=== PATIENT | female | born 1975 | race Hispanic/Latino ===

== ENCOUNTER 2024-06-28 02:35 | Inpatient (IN) | payer BC ==
[~2024-06-28] VITALS: Ht 124.5 cm; Wt 119.7 kg
[2024-06-28] MEDS: ondanSETRON 4MG INJ IVP ONE ×3 (02:58→08:38)
[2024-06-28] MEDS: 0.9%NACL 1000ML 1,000 ML IV ONE (02:58)
[2024-06-28] MEDS: PANTOPrazole 40 MG/VIAL IVP ONE (02:58)
[2024-06-28] MEDS: acetaMINOPHEN 325 MG TAB PO ONE (02:59)
[2024-06-28 03:06] LABS: BASOPHILS # (AUTO) 0.04 K/uL (0.00-0.20); BASOPHILS % (AUTO) 0.4 % (0.0-5.0); EOSINOPHILS # (AUTO) 0.12 K/uL (0.00-0.70); EOSINOPHILS % (AUTO) 1.1 % (0.0-8.0); HEMATOCRIT 42.1 % (36-48); IMMATURE GRANULOCYTE ABSOLUTE 0.05 K/uL (0-1); LYMPHOCYTES # (AUTO) 1.2 K/uL (1.0-4.8); LYMPHOCYTES % (AUTO) 10.6 % (21.0-51.0); MEAN CORPUSCULAR HEMOGLOBIN 27.9 pg (27.0-33.0); MEAN CORPUSCULAR HGB CONC 34.7 g/dL (32.0-36.0); MEAN CORPUSCULAR VOLUME 80.5 fL (79-99); MONOCYTES # (AUTO) 0.6 K/uL (0.1-1.0); MONOCYTES % (AUTO) 5.6 % (3.0-13.0); NEUTROPHILS # (AUTO) 9.3 K/uL (1.8-7.7); NEUTROPHILS % (AUTO) 81.9 % (40.0-77.0); PLATELET COUNT (AUTO) 333 K/uL (130-400); RED BLOOD CELL COUNT(AUTO) 5.23 MIL/uL (4.00-5.50); RED CELL DISTRIBUTION WIDTH 13.6 % (11.0-15.5); WHITE BLOOD COUNT (AUTO) 11.4 K/uL (4.8-10.8)
--- NOTE | 2024-06-28 03:10 | ERN ---
General Chief Complaint: Abdominal Pain Stated Complaint: UPPER ABDOMINAL PAIN ONSET 1300 Time Seen by MD: 02:47 Source: patient History of Present Illness Initial Comments Patient is a 49-year-old female coming in to be evaluated for abdominal pain. Patient states that the pain began earlier today at 1:00 p.m.. She states that the pain is unbearable sharp present in the midepigastric region traveling bilateral flanks. Patient also states he had never had pain like this before she thought initially it was due to her menstruation by decided to come in to be evaluated anyway. Allergies: Coded Allergies: No Known Allergies (Unverified Allergy, Unknown, 06/28/24) Past Medical History Past Medical History: Gallstones Past Surgical History: None ROS Dictation CONSTITUTIONAL: No chills, no fever, no weakness, no diaphoresis, no malaise. HEAD/FACE: No signs of trauma. EENT: No eye pain, no blurred vision, no tearing, no double vision, no ear pain, no ear discharge, no nose pain, no nasal congestion, no throat pain, no throat swelling, no mouth pain. RESPIRATORY: No cough, no orthopnea, no SOB, no stridor, no wheezing. CARDIOVASCULAR: No chest pain, no edema, no palpitations, no syncope. GASTROINTESTINAL/ABDOMINAL: abdominal pain, no constipation, no diarrhea, nausea, no vomiting. GENITOURINARY: No abnormal discharge, no dysuria, no frequent urination, no hematuria. No complaints of pain in the genitals. MUSCULOSKELETAL: No back pain, no gout, no joint pain, no joint swelling, no muscle pain, no muscle stiffness, no neck pain. INTEGUMENTARY: No change in color, no change in hair/nails, no dryness, no lesion, no lumps, no rash. NEUROLOGICAL/PSYCH: No anxiety, not depressed, no emotional problem, no headache, no numbness, no pre-existing deficit, no history of seizures, no tremors, no weakness. HEMATOLOGIC/LYMPHATIC: Not anemic, no history of blood clots, no apparent bleeding, no bruising, glands not swollen. All Systems Negative, Except as Noted. Physical Exam Physical Exam Dictation VITAL SIGNS: Reviewed. GENERAL APPEARANCE: Alert, oriented x3, no acute distress, obese. HEAD AND FACE: Non-traumatic. EYES: PERRL, pink conjunctivas, eyelid no trauma, anterior chamber clear. EARS: Pinnas intact and no signs of trauma or erythema. Ear canals clear and no discharge. TMs no erythema. NOSE: No discharge, no bleeding. OROPHARYNX: Mouth normal, teeth no caries, tongue pink. Pharynx clear, no erythema. Tonsils no exudates, no abscesses noted. Mucous membrane moist. NECK: Supple, non-tender, no thyromegaly, no masses, no JVD, no bruits. BREAST: Deferred. CHEST: No tenderness, no crepitus, no paradoxical movement, no retractions. LUNGS: Clear, well-ventilated, symmetric, no rales, no wheezing, no rhonchi, no stridor, good breath sounds bilaterally. HEART: Regular rate, regular rhythm, no murmur, no gallops. VASCULAR: No peripheral edema. ABDOMEN: Soft, positive bowel sounds, nondistended, no guarding, epigastric and lower abdominal pain reproducible on palpation, no rebound, no masses no hepatomegaly, no splenomegaly, no Gil's sign, no hernias. RECTAL: Deferred. GENITAL: Deferred. NEUROLOGICAL: Normal speech, gross motor function intact, gross sensory function intact. MUSCULOSKELETAL: Neck nontender, full range of motion, back nontender, full range of motion. EXTREMITIES: Nontender, full range of motion. SKIN: Color pink, dry, no turgor, no rash, no lacerations, no abrasions, no contusions. LYMPHATICS: Deferred. Results Laboratory and Microbiology Lab and Micro Result Laboratory Tests Test 06/28/24 02:57 06/28/24 03:30 White Blood Count 11.4 K/uL (4.8-10.8) H Red Blood Count 5.23 MIL/uL (4.00-5.50) Hemoglobin 14.6 g/dL (12.0-16.0) Hematocrit 42.1 % (36-48) Mean Corpuscular Volume 80.5 fL (79-99) Mean Corpuscular Hemoglobin 27.9 pg (27.0-33.0) Mean Corpuscular Hemoglobin Concent 34.7 g/dL (32.0-36.0) Red Cell Distribution Width 13.6 % (11.0-15.5) Platelet Count 333 K/uL (130-400) Mean Platelet Volume 10.8 fL (7.5-10.5) H Immature Granulocyte % (Auto) 0.4 % (0-1) Neutrophils (%) (Auto) 81.9 % (40.0-77.0) H Lymphocytes (%) (Auto) 10.6 % (21.0-51.0) L Monocytes (%) (Auto) 5.6 % (3.0-13.0) Eosinophils (%) (Auto) 1.1 % (0.0-8.0) Basophils (%) (Auto) 0.4 % (0.0-5.0) Neutrophils # (Auto) 9.3 K/uL (1.8-7.7) H Lymphocytes # (Auto) 1.2 K/uL (1.0-4.8) Monocytes # (Auto) 0.6 K/uL (0.1-1.0) Eosinophils # (Auto) 0.12 K/uL (0.00-0.70) Basophils # (Auto) 0.04 K/uL (0.00-0.20) Absolute Immature Granulocyte (auto 0.05 K/uL (0-1) Nucleated Red Blood Cells 0.0 % (0.0-0.19) Sodium Level 144 mmol/L (136-145) Potassium Level 2.8 mmol/L (3.5-5.1) *L Chloride Level 105 mmol/L (101-111) Carbon Dioxide Level 30 mmol/L (21-32) Blood Urea Nitrogen 10 mg/dL (7-18) Creatinine 0.8 mg/dL (0.5-1.0) Glomerular Filtration Rate Calc 91 mL/min (>90) Random Glucose 177 mg/dL (70-105) H Total Calcium 8.6 mg/dL (8.5-10.1) Magnesium Level 1.80 mg/dL (1.80-2.40) Total Bilirubin 2.0 mg/dL (0.2-1.0) H Aspartate Amino Transf (AST/SGOT) 573 U/L (10-37) H Alanine Aminotransferase (ALT/SGPT) 446 U/L (12-78) H Alkaline Phosphatase 222 U/L (50-136) H Total Creatine Kinase 79 U/L (21-232) Troponin I High Sensitivity 6 ng/L (4-50) Total Protein 6.8 g/dL (6.0-8.3) Albumin 3.3 g/dL (3.5-5.0) L Triglycerides Level 78 mg/dL (30-200) Lipase 75938 U/L (16-77) *H Human Chorionic Gonadotropin, Quant 0 mIU/mL (0-5) Urine Color LIGHT-ORANGE (YELLOW) Urine Appearance CLOUDY (CLEAR) H Urine pH 7.0 (5.0-8.0) Urine Specific [place] 1.011 (1.001-1.031) Urine Protein 10 mg/dL (NEGATIVE) H Urine Glucose (UA) NEGATIVE mg/dL (NEGATIVE) Urine Ketones NEGATIVE mg/dL (NEGATIVE) Urine Occult Blood LARGE (NEGATIVE) H Urine Nitrate NEGATIVE (NEGATIVE) Urine Bilirubin NEGATIVE mg/dL (NEGATIVE) Urine Urobilinogen 3 mg/dL (0.2-1.0) H Urine Leukocyte Esterase 250 Brennan/uL (NEGATIVE) H Urine RBC TNTC /HPF (0-1) H Urine WBC 6-10 /HPF (0-1) H Urine Squamous Epithelial Cells RARE /HPF (0-2) Urine Bacteria None /HPF (None Seen) Urine HCG, Qualitative NEGATIVE (NEGATIVE) Urine Opiates Screen NEGATIVE (NEGATIVE) Urine Barbiturates Screen NEGATIVE (NEGATIVE) Urine Phencyclidine Screen NEGATIVE (NEGATIVE) Urine Amphetamines Screen NEGATIVE (NEGATIVE) Urine Benzodiazepines Screen NEGATIVE (NEGATIVE) Urine Cocaine Screen NEGATIVE (NEGATIVE) Urine Marijuana (THC) Screen NEGATIVE (NEGATIVE) Labs Reviewed?: Yes EKG/XRAY/US/CT/MRI EKG Comment 06/28/2024 time 3:15 a.m. Ventricular rate 72 Sinus rhythm MS [address] wave elevation or depression Ultrasound Comment Ultrasound right upper quadrant-gallstones CT Scan Comment CT abdomen and pelvis-pancreatitis MDM MDM: Differential diagnosis: Pancreatitis, cholecystitis, Rationale: Tests considered and ordered secondary to shared decision making include: Previous outside records reviewed: Old ER visits. Risk of complication and/or morbidity or mortality of patient management: None Medications-Per medication reconciliation Need for hospitalization: Patient does not meet criteria for hospitalization. Need for emergency major/minor surgery: No There are no social concerns with this patient. Prescription drug management Prescriptions will include symptomatic care Patient's prior external medical records from other ER visits were reviewed by me as indicated. Prior testing and results from previous visits were reviewed. Prior tests were taken into account with medical decision making and resource utilization, independent historian/historians were used to obtain complete medical history. I independently interpreted the test that were performed, results were reviewed by me and considered findings on radiology if ordered. Medical management and examination interpretation discussions were had by me with other qualified healthcare professionals as indicated for the patient's care. Patient is a 49-year-old female coming in to be evaluated for abdominal pain. On physical exam there is a epigastric and right upper quadrant pain. Laboratory workup elevated liver enzymes as well as elevated lipase. Patient will be admitted under the care of hospitalist group for ongoing management of pancreatitis ED Course Orders Procedure Category Date Status Time Cbc With Differential LAB 06/28/24 Complete 02:50 Comprehensive LAB 06/28/24 Complete Metabolic Panel 02:50 Troponin I High LAB 06/28/24 Complete Sensitivity 02:50 Hcg,Quantitative LAB 06/28/24 Complete 02:50 ,Urine Test LAB 06/28/24 Complete 02:50 Urinalysis Profile LAB 06/28/24 Complete 02:50 12 Lead Ekg Tracing- EKG 06/28/24 Logged Technical 02:50 0.9%Nacl 1000ml (Ns PHA 06/28/24 Complete 1000ml) 03:00 Acetaminophen 325 Tab PHA 06/28/24 Complete (Tylenol 325mg Tab 03:00 Ondansetron 4mg Inj PHA 06/28/24 Complete (Zofran 4mg Inj) 03:00 Pantoprazole 40mg Inj PHA 06/28/24 Complete (Protonix 40mg Inj 03:00 Creatine Kinase, Total LAB 06/28/24 Complete 02:50 Chest 1vw RAD 06/28/24 Taken 02:50 Lipase LAB 06/28/24 Complete 02:50 Drug Screen Urine LAB 06/28/24 Complete 02:50 Dicyclomine Hcl PHA 06/28/24 Complete (Bentyl 20mg Inj) 03:30 Dicyclomine Hcl PHA 06/28/24 Complete (Bentyl 20mg Inj) 03:30 Culture Urine AV 06/28/24 In Process 04:05 Ondansetron 4mg Inj PHA 06/28/24 Complete (Zofran 4mg Inj) 04:30 Morphine 2mg Syg PHA 06/28/24 Complete (Morphine 2mg Syg) 04:30 Us Abdominal Ruq\Ltd US 06/28/24 Taken 04:26 Ct Abdomen/Pelvis W/O CT 06/28/24 Taken Contrast 04:26 Potassium Chloride PHA 06/28/24 Complete 10meq/100ml ([place] 05:00 Triglycerides LAB 06/28/24 Complete 04:45 Magnesium LAB 06/28/24 Complete 02:57 Zosyn 3.375gm+Ns 50ml PHA 06/28/24 Complete (Zosyn 3.375gm+Ns 06:00 Current Medications Medications (Trade) Dose Ordered Sig/[place] Route PRN Reason Start Time Stop Time Status Last Admin Dose Admin Acetaminophen (TYLenol 325MG TAB) 650 mg ONCE ONCE PO 06/28/24 03:00 06/28/24 03:01 DC 06/28/24 02:59 Dicyclomine HCl (Bentyl 20mg Inj) 10 mg ONCE ONCE IM 06/28/24 03:30 06/28/24 03:31 DC 06/28/24 03:28 Dicyclomine HCl (Bentyl 20mg Inj) 10 mg ONCE ONCE IM 06/28/24 03:30 06/28/24 03:31 DC Morphine Sulfate (morPHINE 2MG SYG) 2 mg ONCE ONCE IVP 06/28/24 04:30 06/28/24 04:31 DC 06/28/24 04:33 Ondansetron HCl (zoFRAN 4MG INJ) 4 mg ONCE ONCE IVP 06/28/24 03:00 06/28/24 03:01 DC 06/28/24 02:58 Ondansetron HCl (zoFRAN 4MG INJ) 4 mg ONCE ONCE IVP 06/28/24 04:30 06/28/24 04:31 DC 06/28/24 04:34 Pantoprazole Sodium (PROTonix 40MG INJ) 40 mg ONCE ONCE IVP 06/28/24 03:00 06/28/24 03:01 DC 06/28/24 02:58 Piperacillin Sod/ Tazobactam Sod (Zosyn 3.375gm+NS 50ml) 3.375 gm ONCE ONCE IV 06/28/24 06:00 06/28/24 06:01 DC 06/28/24 06:21 Potassium Chloride 100 ml @ 100 mls/hr ONCE ONCE IV 06/28/24 05:00 06/28/24 05:59 DC 06/28/24 06:22 Sodium Chloride 1,000 ml @ 0 mls/hr ONCE ONCE IV 06/28/24 03:00 06/28/24 03:01 DC 06/28/24 02:58 Vital Signs Date Time Temp Pulse Resp B/P (MAP) Pulse Ox O2 Delivery O2 Flow Rate FiO2 06/28/24 05:29 99.0 80 20 151/82 98 Room Air* 0 21 06/28/24 03:45 97.3 76 20 149/79 96 Room Air* 0 21 06/28/24 02:37 100.0 84 16 188/90 0 Room Air 0 06/28/24 02:36 97.3 84 16 188/90 100 Room Air* 0 21 DX & DISP Disposition: Inpatient Decision to Admit Time: 06:54 Departure Impression: Primary Impression: Pancreatitis Additional Impression: Transaminitis Condition: Stable Referrals: SELF,REFERRAL (PCP) DIAMOND CARVAJAL MD Jun 28, 2024 03:10
[2024-06-28] MEDS: DICYCLOMINE 20MG (10MG/ML) AMP IM ONE ×2 (03:28→03:30)
[2024-06-28 03:35] LABS: ALBUMIN 3.3 g/dL (3.5-5.0); CREATININE 0.8 mg/dL (0.5-1.0); TOTAL PROTEIN, SERUM 6.8 g/dL (6.0-8.3)
[2024-06-28 03:59] LABS: APPEARANCE,URINE CLOUDY (CLEAR); BILIRUBIN,URINE NEGATIVE (NEGATIVE); COLOR,URINE LIGHT-ORANGE (YELLOW); GLUCOSE, URINE (UA) NEGATIVE (NEGATIVE); KETONES,URINE NEGATIVE (NEGATIVE); LEUKOCYTE ESTERASE ,URINE 250 Leu/uL (NEGATIVE); NITRATE,URINE NEGATIVE (NEGATIVE); OCCULT BLOOD,URINE LARGE (NEGATIVE); PROTEIN,URINE 10 mg/dL (NEGATIVE); UROBILINOGEN,URINE 3 mg/dL (0.2-1.0)
[2024-06-28 04:01] LABS: POTASSIUM 2.8 mmol/L (3.5-5.1)
[2024-06-28 04:05] LABS: ADD UA MICROSCOPIC YES
[2024-06-28 04:06] LABS: AMPHET/METH SCREEN,URINE NEGATIVE (NEGATIVE); BARBITURATE SCREEN, URINE NEGATIVE (NEGATIVE); BENZODIAZEPINES SCREEN,URINE NEGATIVE (NEGATIVE); CANNABINOID SCREEN,URINE NEGATIVE (NEGATIVE); COCAINE SCREEN,URINE NEGATIVE (NEGATIVE); HCG,QUALITATIVE URINE NEGATIVE (NEGATIVE); OPIATE SCREEN,URINE NEGATIVE (NEGATIVE); PHENCYCLIDINE SCREEN,URINE NEGATIVE (NEGATIVE)
[2024-06-28 04:08] LABS: RBC,URINE TNTC /HPF (0-1); SQUAMOUS EPITHELIAL CELL,UR RARE /HPF (0-2)
--- NOTE | 2024-06-28 04:11 | NUR ---
POTASSIUM LAB 2.[address] CARVAJAL WILL PUT NEW ORDERS WILL CONT TO MONITOR
[2024-06-28] MEDS: morPHINE 2 MG SYG IVP ONE (04:33)
--- NOTE | 2024-06-28 04:40 | NUR ---
[place] [id number] CARVAJAL WILL PUT NEW ORDERS WILL CONT TO MONITOR
--- NOTE | 2024-06-28 05:22 | NUR ---
TOOK OVER PATIENT AT THIS TIME
[2024-06-28 05:33] VITALS: TEMP 98.6
[2024-06-28 05:58] LABS: MAGNESIUM 1.8 mg/dL (1.80-2.40)
[2024-06-28] MEDS: ZOSYN 3.375GM +NS 50ML IV ONE (06:21)
[2024-06-28] MEDS: PoTASSium chloRIDE 10MEQ/100ML 100 ML IV ONE (06:22)
[2024-06-28] MEDS: hydroMORPHone 0.5 MG SYG (0.5MG/0.5ML) IVP ONE (07:24)
--- NOTE | 2024-06-28 08:10 | HP ---
[facility] PH[facility] Date of Service: Jun 28, 2024 Time of Service: 08:10 HISTORY OF PRESENT ILLNESS: [ The patient is a 49 year old female presenting with midepigastric abdominal pain since yesterday around 1:00 p.m. The pain is described as constant, severe, radiating to the back with associated nausea and vomiting. The patient denies any recent trauma, changes in bowel habits or urinary symptoms. The pain has not been relieved by over the counter medications or positional changes. Patient also states she had never had pain like this before. Labarotary [place] [address] consistent with acute pancreatitis., transaminitis with AST 573, ALT 446 and Alkaline phosphate of 222 suggestive of possible biliary involvement. Additionally, hypokalemia was noted with potassium 2.8 likely secondary to vomiting. A CT abdominal pelvis demonstrated findings consistent with acute pancreatitis. No evidence of necrosis or pseudocyst formation was noted on imaging. The patient does report remote history of gallstones. She denies alcohol consumption. Vital signs upon presentation: temperature of 98.1 pulse 86, blood pressure of 149/76, respiratory rate 16, and oxygen saturation of 98% on room air. GI will be consulted for the management of acute pancreatitis with severe elevation of lipase and biliary involvement. Patient will be admitted to [facility] under hospitalist for further treatment and evaluation. ] REVIEW OF SYSTEMS CONSTITUTIONAL: Denies fevers, chills, or night sweats. No unintentional weight loss reported. NEUROLOGICAL: Denies headache, amaurosis fugax, motor weakness, sensory deficit, vertigo/spinning sensation, gait abnormalities, or tremors. ENT: No hearing loss, otalgia, otorrhea, rhinitis, rhinorrhea, hoarseness, or sore throat. CARDIOVASCULAR: Denies any exertional angina, dyspnea on exertion, orthopnea, paroxysmal nocturnal dyspnea, palpitations, life-threatening arrhythmias, claudication. PULMONARY: Denies any shortness of breath, cough, phlegm/sputum, hemoptysis, pleuritic chest pain. SLEEP: Denies morning headaches, daytime somnolence or napping. Denies difficulty falling asleep, staying asleep, waking from sleep. Denies knowledge of snoring. GASTROINTESTINAL: Denies any type of dysphagia to either liquids or solids. Denies nausea, vomiting, pyrosis, early satiety, abdominal pain, diarrhea, constipation, or changes in stool consistency or caliber. Denies coffee-ground emesis, hematemesis, hematochezia, or melanotic stools. GENITOURINARY: Denies frequency, urgency, nocturia, hematuria or incontinence (Storage/Irritative symptoms.) Low urinary stream, straining to void, urinary intermittency or hesitancy, splitting of the voiding stream, terminal dribbling. ENDOCRINOLOGIC: Denies polyuria, polydipsia, polyphagia or heat/cold intolerances. HEMATOLOGIC: Denies thrombophilia/previous clots, or coagulopathy/bleeding disorders. ONCOLOGIC: Denies personal history of malignancy. DERMATOLOGIC: Denies rashes or pruritus. PSYCHIATRIC: Denies any suicidal or homicidal ideation. Denies hallucinations. PAST MEDICAL HISTORY: [ Gallstones ] PAST SURGICAL HISTORY: [ Section x 2 last one in 2011 ] PAST SOCIAL HISTORY: [ Patient denies the use of alcohol, cigarettes, or illicit drugs. Patient is able to ambulate without assistance and is completely independent with ADLs. ] FAMILY HISTORY: [ Non-reported ] Coded Allergies: No Known Allergies (Unverified Allergy, Unknown, 06/28/24) PHYSICAL EXAM GENERAL APPEARANCE: The patient is awake, alert, and oriented, in no acute cardiopulmonary distress, obese. NEUROLOGICAL: Cranial nerves II-XII grossly intact. Motor is 5/5 in bilateral upper and lower extremities proximal to distal. No sensory deficits. HEENT: Face is symmetric. Pupils are equal and reactive. Extraocular movements are intact. NECK: Supple. No JVD. No thyromegaly. No submental, submandibular, pre-/postauricular, occipital or supraclavicular lymphadenopathy. CHEST: Normal chest expansion. No Telemetry. LUNGS: Absence of any rales, rhonchi or any wheezing. CARDIOVASCULAR: Regular. S1 and S2 normal. No appreciable rubs, murmurs or gallops. ABDOMEN: Soft, positive bowel sounds, nondistended, no guarding, epigastric and lower abdominal pain reproducible on palpation, no rebound, no masses no hepatomegaly, no splenomegaly, no Gil's sign, no hernias : Deferred. No Narvaez. EXTREMITIES: Non-edematous and not cyanotic. No clubbing. Good capillary refill. SKIN: No skin breakdown. Vital Sign (Last 24 Hours) 06/28/24 07:10 Temp 98.1 Pulse 86 Resp 17 B/P (MAP) 149/76 Pulse Ox 98 O2 Delivery Room Air* O2 Flow Rate 0 FiO2 21 LABS: Laboratory: Test 06/28/24 03:30 06/28/24 02:57 Range/Units Urine Color LIGHT-ORANGE YELLOW Urine Appearance CLOUDY H CLEAR Urine pH 7.0 5.0-8.0 Urine Specific [place] 1.011 1.001-1.031 Urine Protein 10 H NEGATIVE mg/dL Urine Glucose (UA) NEGATIVE NEGATIVE mg/dL Urine Ketones NEGATIVE NEGATIVE mg/dL Urine Occult Blood LARGE H NEGATIVE Urine Nitrate NEGATIVE NEGATIVE Urine Bilirubin NEGATIVE NEGATIVE mg/dL Urine Urobilinogen 3 H 0.2-1.0 mg/dL Urine Leukocyte Esterase 250 H NEGATIVE Brennan/uL Urine RBC TNTC H 0-1 /HPF Urine WBC 6-10 H 0-1 /HPF Urine Squamous Epithelial Cells RARE 0-2 /HPF Urine Bacteria None None Seen /HPF Urine HCG, Qualitative NEGATIVE NEGATIVE Urine Opiates Screen NEGATIVE NEGATIVE Urine Barbiturates Screen NEGATIVE NEGATIVE Urine Phencyclidine Screen NEGATIVE NEGATIVE Urine Amphetamines Screen NEGATIVE NEGATIVE Urine Benzodiazepines Screen NEGATIVE NEGATIVE Urine Cocaine Screen NEGATIVE NEGATIVE Urine Marijuana (THC) Screen NEGATIVE NEGATIVE White Blood Count 11.4 H 4.8-10.8 K/uL Red Blood Count 5.23 4.00-5.50 MIL/uL Hemoglobin 14.6 12.0-16.0 g/dL Hematocrit 42.1 36-48 % Mean Corpuscular Volume 80.5 79-99 fL Mean Corpuscular Hemoglobin 27.9 27.0-33.0 pg Mean Corpuscular Hemoglobin Concent 34.7 32.0-36.0 g/dL Red Cell Distribution Width 13.6 11.0-15.5 % Platelet Count 333 130-400 K/uL Mean Platelet Volume 10.8 H 7.5-10.5 fL Immature Granulocyte % (Auto) 0.4 0-1 % Neutrophils (%) (Auto) 81.9 H 40.0-77.0 % Lymphocytes (%) (Auto) 10.6 L 21.0-51.0 % Monocytes (%) (Auto) 5.6 3.0-13.0 % Eosinophils (%) (Auto) 1.1 0.0-8.0 % Basophils (%) (Auto) 0.4 0.0-5.0 % Neutrophils # (Auto) 9.3 H 1.8-7.7 K/uL Lymphocytes # (Auto) 1.2 1.0-4.8 K/uL Monocytes # (Auto) 0.6 0.1-1.0 K/uL Eosinophils # (Auto) 0.12 0.00-0.70 K/uL Basophils # (Auto) 0.04 0.00-0.20 K/uL Absolute Immature Granulocyte (auto 0.05 0-1 K/uL Nucleated Red Blood Cells 0.0 0.0-0.19 % Sodium Level 144 136-145 mmol/L Potassium Level 2.8 *L 3.5-5.1 mmol/L Chloride Level 105 101-111 mmol/L Carbon Dioxide Level 30 21-32 mmol/L Blood Urea Nitrogen 10 7-18 mg/dL Creatinine 0.8 0.5-1.0 mg/dL Glomerular Filtration Rate Calc 91 >90 mL/min Random Glucose 177 H 70-105 mg/dL Total Calcium 8.6 8.5-10.1 mg/dL Magnesium Level 1.80 1.80-2.40 mg/dL Total Bilirubin 2.0 H 0.2-1.0 mg/dL Aspartate Amino Transf (AST/SGOT) 573 H 10-37 U/L Alanine Aminotransferase (ALT/SGPT) 446 H 12-78 U/L Alkaline Phosphatase 222 H 50-136 U/L Total Creatine Kinase 79 21-232 U/L Troponin I High Sensitivity 6 4-50 ng/L Total Protein 6.8 6.0-8.3 g/dL Albumin 3.3 L 3.5-5.0 g/dL Triglycerides Level 78 30-200 mg/dL Lipase 02920 *H 16-77 U/L Human Chorionic Gonadotropin, Quant 0 0-5 mIU/mL [place] [address] [address] IMAGING REPORT Signed PATIENT: JOHNATHAN MAHONEY MR#: [id number] : 1975 SEX: F AGE: 49 LOCATION: [facility] ORDER 6 STATUS: REG ER REPORT#: [id number] SERVICE 5 REASON: ruq pain ORDERING PHYSICIAN: DIAMOND CARVAJAL MD PROCEDURE: ABD PEL WO - CT ABDOMEN/PELVIS W/O CONTRAST Exam Type: CT ABDOMEN/PELVIS W/O CONTRAST Clinical Information: ruq pain Comparison: None CT Dose Index (CTDI): 10.20 mGy Dose Length Product (DLP): 530.00 total mGy-cm PROTOCOL: Routine noncontrast helical scanning of the abdomen and pelvis was performed at 5mm collimation. Findings: No evidence of nephro or ureterolithiasis is found. No hydronephrosis or ureteral dilatation is seen. The lung bases are clear. The stomach is unremarkable. It shows no wall thickening. No gross ulceration is seen. It is not overly distended. There are no surrounding inflammatory changes. No wall lesions are identified to suggest cancer. The spleen is unremarkable. It is not enlarged. Inflammation of the pancreas is seen consistent with acute pancreatitis. No fluid collections noted. The gallbladder is unremarkable. It shows no cholelithiasis. The gallbladder wall is normal in thickness. There is no pericholecystic fluid. The is no acute or chronic inflammation noted. The adrenal glands are unremarkable. There is no enlargement. No lesions are noted. The liver is unremarkable. It shows no focal masses. The appendix is unremarkable. It shows no evidence of inflammation. No appendicolith is seen. The small bowel is unremarkable. There is no evidence of dilatation to suggest obstruction. No evidence of adynamic ileus is seen. There is no small bowel wall thickening to suggest enteritis. The colon is unremarkable. The urinary bladder is unremarkable. There is no wall thickening to suggest tumor or inflammation. There are no intraluminal calculi. There are no diverticula. There is no evidence of chronic bladder outlet obstruction. There is no evidence of urinary bladder distention to suggest urinary retention. The other pelvic structures are unremarkable. The bony and vascular structures are unremarkable for the patient's age. IMPRESSION: Acute pancreatitis. Preliminary report with this information was sent by the on-call radiologist to ordering physicians time of exam. This study was performed using dose reduction techniques to include automated exposure control and/or adjustment of the mA and/or kV according to patient size. DIAGNOSTICS / RADIOLOGY: [[place] [address] [place] [address] IMAGING REPORT Signed PATIENT: JOHNATHAN MAHONEY MR#: [id number] : 1975 SEX: F AGE: 49 LOCATION: [facility] ORDER 0251 STATUS: REG ER REPORT#: [id number] SERVICE 9 REASON: cp ORDERING PHYSICIAN: DIAMOND CARVAJAL MD PROCEDURE: CXR1VW - CHEST 1VW Exam Type: CHEST 1VW Clinical Information: cp Comparison: None Findings: The lungs are clear of infiltrates. The heart is normal in size. The bony and soft tissue structures of the chest are unremarkable. Impression: Clear lungs. ] [place] [address] [id number] IMAGING REPORT Signed PATIENT: JOHNATHAN MAHONEY MR#: [id number] : 1975 SEX: F AGE: 49 LOCATION: [facility] ORDER 6 STATUS: REG ER HOSPITAL REPORT#: [id number] SERVICE 5 REASON: ruq pain ORDERING PHYSICIAN: DIAMOND CARVAJAL MD PROCEDURE: ABDRUQLTD - US ABDOMINAL RUQ\LTD Exam Type: US ABDOMINAL RUQ\E\LTD Clinical Information: ruq pain Comparison: None Findings: The liver shows increased echogenicity consistent with fatty liver infiltration and is enlarged. The liver measures 16.3 cm in length. Doppler evaluation shows patent portal and hepatic veins. The gallbladder shows cholelithiasis. No acute or chronic inflammatory changes are seen. The gallbladder wall thickness is 2 mm. No bile duct dilatation is noted. The common bile duct measures 5 mm. The right kidney is not visualized. The pancreas is within normal limits. IMPRESSION: Cholelithiasis. ASSESSMENT: [ Acute pancreatitis with severe elevation of lipase and biliary involvement POA Transaminitis POA Hypokalemia POA Hyperglycemia POA ] PLAN: [ Admit to medical surgical floor Keep patient NPO Aggressive fluid resuscitation with NS @ 150 ml/hr Replenish electrolyte with protocol as needed. Start on morphine 2 mg IV every 4 hours when necessary for pain. Start on Zofran 4 mg IV every 6 hours when necessary for nausea and vomiting Check hemoglobin A1c, check glucometer checks every 6 hours while nothing by mouth, and started on medium dose insulin sliding scale. Consult GI for further evaluation of severe elevation of lipase and biliary involvement. Consult unpaid intern for persistent hyperglycemia or new onset diabetes. Dietary consult in the morning for recommendations on low triglyceride diet, weight loss recommendations, diabetic Continue Lovenox and Protonix for DVT and GI prophylaxis. ] Current Medications Medications (Trade) Dose Ordered Sig/[place] Route PRN Reason Start Time Stop Time Status Last Admin Acetaminophen (TYLenol 325MG TAB) 650 mg Q4H PRN PO MILD PAIN (1-3) 06/28/24 09:00 07/28/24 08:59 Ondansetron HCl (zoFRAN 4MG INJ) 4 mg Q6H PRN IV NAUSEA/VOMITING 06/28/24 09:00 07/28/24 08:59 Piperacillin Sod/ Tazobactam Sod 50 ml @ 12.5 mls/hr ZOSY8 IV 06/28/24 13:00 07/08/24 12:59 06/28/24 20:08 Enoxaparin Sodium (Lovenox) 30 mg DAILY SQ 06/28/24 09:00 07/28/24 08:59 06/28/24 11:23 Sodium Chloride 1,000 ml @ 100 mls/hr Q10H IV 06/28/24 09:00 07/28/24 08:59 06/28/24 18:20 Famotidine (Pepcid 20mg Vial) 20 mg BID IV 06/28/24 09:00 07/28/24 08:59 06/28/24 20:08 Acetaminophen/ Codeine Phosphate (TYLenol-coDEINE TAB) 1 tab Q6H PRN PO MODERATE PAIN (4-6) 06/28/24 09:00 07/28/24 08:59 Insulin Human Regular (humuLIN R 100 UNIT/ML 3ML) INSULIN SLIDING SCAL... Q6H6 SQ 06/28/24 12:00 07/28/24 11:59 Potassium Chloride 100 ml @ 100 mls/hr AD PRN IV POTASSIUM PROTOCOL 06/28/24 09:00 07/28/24 08:59 06/28/24 08:56 Potassium Chloride (KCl 10% Elixir 20meq/15ml) 10 meq AD PRN PO POTASSIUM PROTOCOL 06/28/24 09:00 07/28/24 08:59 Magnesium Sulfate 50 ml @ 0 mls/hr PROTOCOL PRN IV MAGNESIUM PROTOCOL 06/28/24 09:00 07/28/24 08:59 Morphine Sulfate (morPHINE 2MG SYG) 2 mg Q4H PRN IVP SEVERE PAIN (7-10) 06/28/24 15:00 07/05/24 14:59 Potassium Chloride (K-Dur 10meq Sr Tab) 10 meq AD PRN PO POTASSIUM PROTOCOL 06/28/24 15:00 07/28/24 08:59 Hydralazine HCl (APRESOLine 20MG INJ) 10 mg Q6H PRN IV ADMINISTER FOR SBP/DBP>160/110 06/28/24 19:00 07/28/24 18:59 ADVANCED CARE PLANNING 1. Which of the following were discussed? Hospice Care - Yes / No Therapeutic options - Yes / No Advance Directives - Yes / No Other discussions - 2. Discussed with who? patient 3. Voluntary nature of this service was explained to the patient? Yes / No 4. Amount of time spent - ___30 min____ 5. Reviewed by Physician? (if this service was performed by NPP) Yes / No ATTESTATION BY PHYSICIAN I have seen and examined the patient. I reviewed the documentation, medical decision making, and treatment plan as noted by the mid-level provider above. I agree with the findings and plan of care. Dulce Luo MD, MARIA I FISHER OYSTER Jun 28, 2024 08:10
--- NOTE | 2024-06-28 08:31 | HMCIMG ---
Exam Type: US ABDOMINAL RUQ\E\LTD Clinical Information: ruq pain Comparison: None Findings: The liver shows increased echogenicity consistent with fatty liver infiltration and is enlarged. The liver measures 16.3 cm in length. Doppler evaluation shows patent portal and hepatic veins. The gallbladder shows cholelithiasis. No acute or chronic inflammatory changes are seen. The gallbladder wall thickness is 2 mm. No bile duct dilatation is noted. The common bile duct measures 5 mm. The right kidney is not visualized. The pancreas is within normal limits. IMPRESSION: Cholelithiasis.
--- NOTE | 2024-06-28 08:43 | HMCIMG ---
Exam Type: CHEST 1VW Clinical Information: cp Comparison: None Findings: The lungs are clear of infiltrates. The heart is normal in size. The bony and soft tissue structures of the chest are unremarkable. Impression: Clear lungs.
[2024-06-28] MEDS: PoTASSium chloRIDE 10MEQ/100ML 100 ML IV PRN (08:56)
[2024-06-28] MEDS ORDERED: hydroMORPHone 1 MG INJ IV PRN (09:00)
[2024-06-28] MEDS ORDERED: PoTASSium chloRIDE 20MEQ ER 20 MEQ ERTAB PO PRN (09:00)
[2024-06-28] MEDS ORDERED: morPHINE 2 MG SYG IV PRN (09:00)
[2024-06-28] MEDS ORDERED: acetaMINOPHEN 325 MG TAB PO PRN (09:00)
[2024-06-28] MEDS ORDERED: ondanSETRON 4MG INJ IV PRN (09:00)
[2024-06-28 09:29] LABS: HEMOGLOBIN A1C 5.9 % (4.0-6.0)
--- NOTE | 2024-06-28 10:31 | NUR ---
GAVE REPORT TO VIANNEY HONEYCUTT NO CONCERS VOICED
[2024-06-28 10:40] VITALS: BP 155/93; PULSE 93; RESP 18; TEMP 98.8; O2SAT 91
[2024-06-28] MEDS: 0.9%NACL 1000ML 1,000 ML IV SCH (11:23)
[2024-06-28] MEDS: ENOXAPARIN SODIUM 30 MG/0.3 ML SQ SCH (11:23)
[2024-06-28] MEDS: FAMOTIDINE 20MG VIAL IV SCH (11:24)
[2024-06-28] MEDS: acetaMINOPHEN WITH coDEINE 1 TAB TAB PO PRN ×2 (11:26→23:38)
[2024-06-28] MEDS: INSULIN humuLIN R 100 UNIT/ML 3ML SQ SCH (12:00)
--- NOTE | 2024-06-28 13:40 | EKG ---
[facility] Test Date: 2024-06-28 Test Time: 03:15:18 Pat Name: JOHNATHAN MAHONEY Department: [facility] Room: 308 1 Gender: F [employer]: [id number] : 1975 Requested By: DIAMOND CARVAJAL Order Number: [id number] Reading MD: Quirino Dennison Measurements Intervals [place] Rate: 72 P: 79 NM: 158 QRS: 3 QRSD: 104 T: 64 QT: 442 QTc: 483 Interpretive Statements Sinus rhythm Repol abnrm suggests ischemia, lateral leads Compared to ECG 05/31/2017 00:11:00 Early repolarization now present Possible ischemia now present Sinus arrhythmia no longer present Electronically Signed On 06-28-2024 14:09:53 ACID CORRECTION HAND by Quirino Dennison Please click the below link to view image of tracing.
[2024-06-28] MEDS: ZOSYN 3.375GM+NS 50ML 50 ML IV SCH (14:12)
[2024-06-28] MEDS: morPHINE 4 MG SYG IVP ONE (15:16)
[2024-06-28 16:13] VITALS: BP 165/71; PULSE 112; RESP 18; TEMP 98.1
[2024-06-28] MEDS: LAbetaLOL 20MG SYG IV ONE (19:19)
[2024-06-28 20:00] VITALS: BP 128/80; PULSE 112; RESP 20; TEMP 97.6; O2SAT 91
[2024-06-29] VITALS (7 sets, daily range): BP systolic 125–151; BP diastolic 63–90; PULSE 101–110; RESP 18–20; TEMP 97.9–98.9; O2SAT 90–92
[2024-06-29 05:23] LABS: BASOPHILS # (AUTO) 0.03 K/uL (0.00-0.20); BASOPHILS % (AUTO) 0.3 % (0.0-5.0); EOSINOPHILS # (AUTO) 0.01 K/uL (0.00-0.70); EOSINOPHILS % (AUTO) 0.1 % (0.0-8.0); HEMATOCRIT 43.5 % (36-48); IMMATURE GRANULOCYTE ABSOLUTE 0.04 K/uL (0-1); LYMPHOCYTES # (AUTO) 0.8 K/uL (1.0-4.8); LYMPHOCYTES % (AUTO) 6.8 % (21.0-51.0); MEAN CORPUSCULAR HEMOGLOBIN 28.6 pg (27.0-33.0); MEAN CORPUSCULAR HGB CONC 33.8 g/dL (32.0-36.0); MEAN CORPUSCULAR VOLUME 84.6 fL (79-99); MONOCYTES # (AUTO) 0.7 K/uL (0.1-1.0); MONOCYTES % (AUTO) 5.4 % (3.0-13.0); NEUTROPHILS # (AUTO) 10.4 K/uL (1.8-7.7); NEUTROPHILS % (AUTO) 87.1 % (40.0-77.0); PLATELET COUNT (AUTO) 265 K/uL (130-400); RED BLOOD CELL COUNT(AUTO) 5.14 MIL/uL (4.00-5.50); RED CELL DISTRIBUTION WIDTH 14.4 % (11.0-15.5)
[2024-06-29 06:02] LABS: ALBUMIN 2.9 g/dL (3.5-5.0); BILIRUBIN,TOTAL 2.8 mg/dL (0.2-1.0); MAGNESIUM 1.7 mg/dL (1.80-2.40); TOTAL PROTEIN, SERUM 6.4 g/dL (6.0-8.3)
[2024-06-29 06:27] LABS: ERYTHROCYTE SEDIMENTATION RATE 45 MM/HR (0-20)
[2024-06-29] MEDS: morPHINE 2 MG SYG IVP PRN (08:19)
--- NOTE | 2024-06-29 09:44 | HMCIMG ---
Exam Type: MRI OF THE ABDOMEN WITHOUT CONTRAST and MR cholangiopancreatography Comparison Study: none History: CHOLELITHIASIS PROTOCOL: Examination is done with multiecho multiplanar sequences. ASSET with multiplanar 3-D reconstructions MR cholangiopancreatography sequences are also available for review. MRCP performed customary fashion. 2D axial FIESTA fat-saturated images of abdomen, coronal thick slab MRCP ASSET scan and coronal thin slab MRCP ASSET 3 mm images and maximum intensity projection postprocessing, MIP projected in the customary circumferential and head over heels fashion. FINDINGS: No evidence of nephro or ureterolithiasis is found. No hydronephrosis or ureteral dilatation is seen. The stomach is unremarkable. There is no evidence of gastric dilatation. No blastic thickening is noted to suggest inflammation or tumor. There is no perforation. There is no gastric outlet obstruction. There is no ulceration. The spleen is unremarkable. It is not enlarged. The pancreas shows normal anatomy. It is not fatty replaced. It shows no lesions. The pancreatic duct is not dilated. There is cholelithiasis. No evidence of acute inflammation of the gallbladder is seen by MRI. The adrenal glands are unremarkable. There is no enlargement. No lesions are noted. The liver is unremarkable. It shows no focal masses. The visualized segments of large and small bowel appear unremarkable. The bony and vascular structures are unremarkable for the patient's age. MRCP is likewise unremarkable. The common bile duct is well as the intrahepatic bile ducts are well seen without filling defects to suggest calculi. There are no areas of dilatation or abrupt cutoffs. There is mild ascites. IMPRESSION: CHOLELITHIASIS. Mild ascites. Otherwise normal MRCP.
[2024-06-29] MEDS: MAGNESIUM 2GM PREMIX 50ML 50 ML IV PRN (09:59)
--- NOTE | 2024-06-29 14:12 | PN ---
[facility] PROGRESS NOTE Date of Service: Jun 29, 2024 Time of Service: 14:04 SUBJECTIVE: [ pt is NPO admitted for pancreatiitis likely due to gallstones. Pt states belly pain is improved. still having some pleuritic pains to epigastrium. no f/c. no cp or sob.] REVIEW OF SYSTEMS CONSTITUTIONAL: Denies fevers, chills, or night sweats. No unintentional weight loss reported. NEUROLOGICAL: Denies headache, amaurosis fugax, motor weakness, sensory deficit, vertigo/spinning sensation, gait abnormalities, or tremors. ENT: No hearing loss, otalgia, otorrhea, rhinitis, rhinorrhea, hoarseness, or sore throat. CARDIOVASCULAR: Denies any exertional angina, dyspnea on exertion, orthopnea, paroxysmal nocturnal dyspnea, palpitations, life-threatening arrhythmias, claudication. PULMONARY: Denies any shortness of breath, cough, phlegm/sputum, hemoptysis, pleuritic chest pain. SLEEP: Denies morning headaches, daytime somnolence or napping. Denies difficulty falling asleep, staying asleep, waking from sleep. Denies knowledge of snoring. GASTROINTESTINAL: Denies any type of dysphagia to either liquids or solids. Denies nausea, vomiting, pyrosis, early satiety, abdominal pain, diarrhea, constipation, or changes in stool consistency or caliber. Denies coffee-ground emesis, hematemesis, hematochezia, or melanotic stools. GENITOURINARY: Denies frequency, urgency, nocturia, hematuria or incontinence (Storage/Irritative symptoms.) Low urinary stream, straining to void, urinary intermittency or hesitancy, splitting of the voiding stream, terminal dribbling. ENDOCRINOLOGIC: Denies polyuria, polydipsia, polyphagia or heat/cold intolerances. HEMATOLOGIC: Denies thrombophilia/previous clots, or coagulopathy/bleeding disorders. ONCOLOGIC: Denies personal history of malignancy. DERMATOLOGIC: Denies rashes or pruritus. PSYCHIATRIC: Denies any suicidal or homicidal ideation. Denies hallucinations. PHYSICAL EXAM GENERAL APPEARANCE: The patient is awake, alert, and oriented, in no acute cardiopulmonary distress, obese. NEUROLOGICAL: Cranial nerves II-XII grossly intact. Motor is 5/5 in bilateral upper and lower extremities proximal to distal. No sensory deficits. HEENT: Face is symmetric. Pupils are equal and reactive. Extraocular movements are intact. NECK: Supple. No JVD. No thyromegaly. No submental, submandibular, pre- /postauricular, occipital or supraclavicular lymphadenopathy. CHEST: Normal chest expansion. No Telemetry. LUNGS: Absence of any rales, rhonchi or any wheezing. CARDIOVASCULAR: Regular. S1 and S2 normal. No appreciable rubs, murmurs or gallops. ABDOMEN: Soft, positive bowel sounds, nondistended, no guarding, epigastric and lower abdominal pain reproducible on palpation, no rebound, no masses no hepatomegaly, no splenomegaly, no Gil's sign, no hernias : Deferred. No Narvaez. EXTREMITIES: Non-edematous and not cyanotic. No clubbing. Good capillary refill. SKIN: No skin breakdown. Vital Signs (last 8hr) Date Time Temp Pulse Resp B/P (MAP) Pulse Ox O2 Delivery O2 Flow Rate FiO2 06/29/24 11:11 98.8 102 18 151/90 94 Room Air 06/29/24 08:16 99.0 101 18 142/78 92 Room Air LABS: Laboratory: Test 06/29/24 05:07 06/28/24 03:30 06/28/24 02:57 Range/Units White Blood Count 12.0 H 4.8-10.8 K/uL Red Blood Count 5.14 4.00-5.50 MIL/uL Hemoglobin 14.7 12.0-16.0 g/dL Hematocrit 43.5 36-48 % Mean Corpuscular Volume 84.6 79-99 fL Mean Corpuscular Hemoglobin 28.6 27.0-33.0 pg Mean Corpuscular Hemoglobin Concent 33.8 32.0-36.0 g/dL Red Cell Distribution Width 14.4 11.0-15.5 % Platelet Count 265 130-400 K/uL Mean Platelet Volume 10.8 H 7.5-10.5 fL Immature Granulocyte % (Auto) 0.3 0-1 % Neutrophils (%) (Auto) 87.1 H 40.0-77.0 % Lymphocytes (%) (Auto) 6.8 L 21.0-51.0 % Monocytes (%) (Auto) 5.4 3.0-13.0 % Eosinophils (%) (Auto) 0.1 0.0-8.0 % Basophils (%) (Auto) 0.3 0.0-5.0 % Neutrophils # (Auto) 10.4 H 1.8-7.7 K/uL Lymphocytes # (Auto) 0.8 L 1.0-4.8 K/uL Monocytes # (Auto) 0.7 0.1-1.0 K/uL Eosinophils # (Auto) 0.01 0.00-0.70 K/uL Basophils # (Auto) 0.03 0.00-0.20 K/uL Absolute Immature Granulocyte (auto 0.04 0-1 K/uL Nucleated Red Blood Cells 0.0 0.0-0.19 % White Cell Morphology Comment See comments Erythrocyte Sedimentation Rate 45 H 0-20 MM/HR Sodium Level 143 136-145 mmol/L Potassium Level 3.0 *L 3.5-5.1 mmol/L Chloride Level 106 101-111 mmol/L Carbon Dioxide Level 27 21-32 mmol/L Blood Urea Nitrogen 16 7-18 mg/dL Creatinine 1.0 0.5-1.0 mg/dL Glomerular Filtration Rate Calc 70 >90 mL/min Random Glucose 127 H 70-105 mg/dL Total Calcium 7.9 L 8.5-10.1 mg/dL Magnesium Level 1.70 L 1.80-2.40 mg/dL Total Bilirubin 2.8 H 0.2-1.0 mg/dL Aspartate Amino Transf (AST/SGOT) 131 H 10-37 U/L Alanine Aminotransferase (ALT/SGPT) 393 H 12-78 U/L Alkaline Phosphatase 204 H 50-136 U/L Total Protein 6.4 6.0-8.3 g/dL Albumin 2.9 L 3.5-5.0 g/dL Lipase 1901 *H 16-77 U/L Urine Color LIGHT-ORANGE YELLOW Urine Appearance CLOUDY H CLEAR Urine pH 7.0 5.0-8.0 Urine Specific E[place]ice 1.011 1.001-1.031 Urine Protein 10 H NEGATIVE mg/dL Urine Glucose (UA) NEGATIVE NEGATIVE mg/dL Urine Ketones NEGATIVE NEGATIVE mg/dL Urine Occult Blood LARGE H NEGATIVE Urine Nitrate NEGATIVE NEGATIVE Urine Bilirubin NEGATIVE NEGATIVE mg/dL Urine Urobilinogen 3 H 0.2-1.0 mg/dL Urine Leukocyte Esterase 250 H NEGATIVE Brennan/uL Urine RBC TNTC H 0-1 /HPF Urine WBC 6-10 H 0-1 /HPF Urine Squamous Epithelial Cells RARE 0-2 /HPF Urine Bacteria None None Seen /HPF Urine HCG, Qualitative NEGATIVE NEGATIVE Urine Opiates Screen NEGATIVE NEGATIVE Urine Barbiturates Screen NEGATIVE NEGATIVE Urine Phencyclidine Screen NEGATIVE NEGATIVE Urine Amphetamines Screen NEGATIVE NEGATIVE Urine Benzodiazepines Screen NEGATIVE NEGATIVE Urine Cocaine Screen NEGATIVE NEGATIVE Urine Marijuana (THC) Screen NEGATIVE NEGATIVE Hemoglobin A1c 5.9 4.0-6.0 % Estimated Average Glucose (eAG) 123 70-126 mg/dL Total Creatine Kinase 79 21-232 U/L Troponin I High Sensitivity 6 4-50 ng/L Triglycerides Level 78 30-200 mg/dL Human Chorionic Gonadotropin, Quant 0 0-5 mIU/mL Current Medications Medications (Trade) Dose Ordered Sig/[place] Route PRN Reason Start Time Stop Time Status Last Admin Dose Admin Acetaminophen (TYLenol 325MG TAB) 650 mg Q4H PRN PO MILD PAIN (1-3) 06/28/24 09:00 07/28/24 08:59 Acetaminophen (TYLenol 325MG TAB) 650 mg Q6H PRN PO TEMPERATURE GREATER THAN 101.5 06/28/24 09:00 06/28/24 08:56 DC Acetaminophen/ Codeine Phosphate (TYLenol-coDEINE TAB) 1 tab Q6H PRN PO MODERATE PAIN (4-6) 06/28/24 09:00 07/28/24 08:59 06/28/24 23:38 1 TAB Acetaminophen/ Codeine Phosphate (TYLenol-coDEINE TAB) 2 tab Q6H PRN PO SEVERE PAIN (7-10) 06/28/24 09:00 06/28/24 14:55 DC 06/28/24 11:26 2 TAB Enoxaparin Sodium (Lovenox) 30 mg DAILY SQ 06/28/24 09:00 07/28/24 08:59 06/29/24 08:18 30 MG Famotidine (Pepcid 20mg Vial) 20 mg BID IV 06/28/24 09:00 07/28/24 08:59 06/29/24 08:17 20 MG Hydralazine HCl (APRESOLine 20MG INJ) 10 mg Q6H PRN IV ADMINISTER FOR SBP/DBP>160/110 06/28/24 19:00 07/28/24 18:59 Hydromorphone HCl (DiLAUDid 1MG INJ) 0.5 mg Q4H PRN IV SEVERE PAIN (7-10) 06/28/24 09:00 06/28/24 08:55 DC Insulin Human Regular (humuLIN R 100 UNIT/ML 3ML) INSULIN SLIDING SCAL... Q6H6 SQ 06/28/24 12:00 07/28/24 11:59 Magnesium Sulfate 50 ml @ 0 mls/hr PROTOCOL PRN IV MAGNESIUM PROTOCOL 06/28/24 09:00 07/28/24 08:59 06/29/24 09:59 25 MLS/HR Morphine Sulfate (morPHINE 2MG SYG) 2 mg Q4H PRN IV MODERATE PAIN (4-6) 06/28/24 09:00 06/28/24 08:55 DC Morphine Sulfate (morPHINE 2MG SYG) 2 mg Q4H PRN IVP SEVERE PAIN (7-10) 06/28/24 15:00 07/05/24 14:59 06/29/24 08:19 2 MG Ondansetron HCl (zoFRAN 4MG INJ) 4 mg Q6H PRN IV NAUSEA/VOMITING 06/28/24 09:00 07/28/24 08:59 Piperacillin Sod/ Tazobactam Sod 50 ml @ 12.5 mls/hr [id number] IV 06/28/24 13:00 07/08/24 12:59 06/29/24 13:06 12.5 MLS/HR Potassium Chloride 100 ml @ 100 mls/hr AD PRN IV POTASSIUM PROTOCOL 06/28/24 09:00 07/28/24 08:59 06/28/24 08:56 100 MLS/HR Potassium Chloride (K-Dur 10meq Sr Tab) 10 meq AD PRN PO POTASSIUM PROTOCOL 06/28/24 15:00 07/28/24 08:59 Potassium Chloride (K-Dur/Klor-Con 20meq) 10 meq AD PRN PO POTASSIUM PROTOCOL 06/28/24 09:00 06/28/24 14:54 DC Potassium Chloride (KCl 10% Elixir 20meq/15ml) 10 meq AD PRN PO POTASSIUM PROTOCOL 06/28/24 09:00 07/28/24 08:59 Sodium Chloride 1,000 ml @ 100 mls/hr Q10H IV 06/28/24 09:00 07/28/24 08:59 06/29/24 04:22 100 MLS/HR DIAGNOSTICS / RADIOLOGY: [ ] ASSESSMENT: [ Acute pancreatitis with severe elevation of lipase and biliary involvement POA Transaminitis POA Hypokalemia POA Hyperglycemia POA ] PLAN: [will rebolus with 1 L NS (2 500 cc boluses) Replenish electrolyte with protocol as needed. Start on morphine 2 mg IV every 4 hours when necessary for pain. Start on Zofran 4 mg IV every 6 hours when necessary for nausea and vomiting Check hemoglobin A1c, check glucometer checks every 6 hours while nothing by mouth, and started on medium dose insulin sliding scale. Consult GI for further evaluation of severe elevation of lipase and biliary involvement. MRCP does not indicate need for ERCP. Consult quality management nurse for persistent hyperglycemia or new onset diabetes. Dietary consult in the morning for recommendations on low triglyceride diet, we ight loss recommendations, diabetic Continue Lovenox and Protonix for DVT and GI prophylaxis. ] Current Medications Medications (Trade) Dose Ordered Sig/Ginna Route PRN Reason Start Time Stop Time Status Last Admin Acetaminophen (TYLenol 325MG TAB) 650 mg Q4H PRN PO MILD PAIN (1-3) 06/28/24 09:00 07/28/24 08:59 Ondansetron HCl (zoFRAN 4MG INJ) 4 mg Q6H PRN IV NAUSEA/VOMITING 06/28/24 09:00 07/28/24 08:59 Piperacillin Sod/ Tazobactam Sod 50 ml @ 12.5 mls/hr [id number] IV 06/28/24 13:00 07/08/24 12:59 06/28/24 20:08 Enoxaparin Sodium (Lovenox) 30 mg DAILY SQ 06/28/24 09:00 07/28/24 08:59 06/28/24 11:23 Sodium Chloride 1,000 ml @ 100 mls/hr Q10H IV 06/28/24 09:00 07/28/24 08:59 06/28/24 18:20 Famotidine (Pepcid 20mg Vial) 20 mg BID IV 06/28/24 09:00 07/28/24 08:59 06/28/24 20:08 Acetaminophen/ Codeine Phosphate (TYLenol-coDEINE TAB) 1 tab Q6H PRN PO MODERATE PAIN (4-6) 06/28/24 09:00 07/28/24 08:59 Insulin Human Regular (humuLIN R 100 UNIT/ML 3ML) INSULIN SLIDING SCAL... Q6H6 SQ 06/28/24 12:00 07/28/24 11:59 Potassium Chloride 100 ml @ 100 mls/hr AD PRN IV POTASSIUM PROTOCOL 06/28/24 09:00 07/28/24 08:59 06/28/24 08:56 Potassium Chloride (KCl 10% Elixir 20meq/15ml) 10 meq AD PRN PO POTASSIUM PROTOCOL 06/28/24 09:00 07/28/24 08:59 Magnesium Sulfate 50 ml @ 0 mls/hr PROTOCOL PRN IV MAGNESIUM PROTOCOL 06/28/24 09:00 07/28/24 08:59 Morphine Sulfate (morPHINE 2MG SYG) 2 mg Q4H PRN IVP SEVERE PAIN (7-10) 06/28/24 15:00 07/05/24 14:59 Potassium Chloride (K-Dur 10meq Sr Tab) 10 meq AD PRN PO POTASSIUM PROTOCOL 06/28/24 15:00 07/28/24 08:59 Hydralazine HCl (APRESOLine 20MG INJ) 10 mg Q6H PRN IV ADMINISTER FOR SBP/DBP>160/110 06/28/24 19:00 07/28/24 18:59 ANEUDY AGUSTIN MD Jun 29, 2024 14:12
[2024-06-29] MEDS: acetaMINOPHEN 325 MG TAB PO PRN (14:26)
[2024-06-29] MEDS: 0.9% NACL 500ML IV.SOLN 500 ML IV SCH (16:30)
[2024-06-30] VITALS (9 sets, daily range): BP systolic 132–152; BP diastolic 61–93; PULSE 102–113; RESP 17–20; TEMP 98.1–98.9; O2SAT 92–96
[2024-06-30 04:43] LABS: BASOPHILS # (AUTO) 0.02 K/uL (0.00-0.20); BASOPHILS % (AUTO) 0.2 % (0.0-5.0); HEMATOCRIT 36.3 % (36-48); IMMATURE GRANULOCYTE ABSOLUTE 0.04 K/uL (0-1); LYMPHOCYTES # (AUTO) 0.9 K/uL (1.0-4.8); LYMPHOCYTES % (AUTO) 9.7 % (21.0-51.0); MEAN CORPUSCULAR HEMOGLOBIN 27.8 pg (27.0-33.0); MEAN CORPUSCULAR HGB CONC 33.3 g/dL (32.0-36.0); MEAN CORPUSCULAR VOLUME 83.3 fL (79-99); MONOCYTES # (AUTO) 0.5 K/uL (0.1-1.0); MONOCYTES % (AUTO) 5.2 % (3.0-13.0); NEUTROPHILS # (AUTO) 8.1 K/uL (1.8-7.7); NEUTROPHILS % (AUTO) 83.5 % (40.0-77.0); PLATELET COUNT (AUTO) 230 K/uL (130-400); RED BLOOD CELL COUNT(AUTO) 4.36 MIL/uL (4.00-5.50); WHITE BLOOD COUNT (AUTO) 9.7 K/uL (4.8-10.8)
[2024-06-30 05:01] LABS: ALBUMIN 2.4 g/dL (3.5-5.0); BILIRUBIN,TOTAL 1.7 mg/dL (0.2-1.0); CREATININE 0.6 mg/dL (0.5-1.0); MAGNESIUM 1.9 mg/dL (1.80-2.40); TOTAL PROTEIN, SERUM 5.9 g/dL (6.0-8.3)
[2024-06-30 05:07] LABS: POTASSIUM 2.9 mmol/L (3.5-5.1)
--- NOTE | 2024-06-30 12:53 | PN ---
[facility] PROGRESS NOTE Date of Service: Jun 30, 2024 Time of Service: 11:35 SUBJECTIVE: The patient is a 49-year-old female with a no significant past medical history presented to ED on 06/28 with the chief complaints of mild epigastric abdominal pain radiating to back and bilateral flanks of 12 hours associated with the episodes of nausea and vomiting. She reported no history of similar episodes before. On presentation she was afebrile, blood pressure was 188/90. Labs showed a WBC of 11.4 with neutrophilia, potassium 2.8, total bilirubin 2.0, AST 573, ALT 446, alkaline phosphatase 222, triglycerides 88, lipase [id number]. Abdominal ultrasound showed cholelithiasis. Abdomen and pelvis CT showed acute pancreatitis. The patient received analgesics, Zofran, Protonix, 0.9% Na Cl bolus, Zosyn and was admitted for the management of acute pancreatitis. 06/30- The patient was examined today at bedside, lying comfortably. Epigastric pain has improved as compared to presentation and now it is 4/10 still radiating to bilateral flanks. She has been NPO, remains afebrile, has been tachycardic with pulse rates around 110, SBP in 130s in 150s. She is saying she is nervous about her condition. She is complaining of headaches possibly because of NPO and requesting if she can eat. Additionally she is saying that she can not take deep breath without discomfort, and is having pain with deep breathing. Labs: WBC dropped to 9.7 From 12, potassium 2.9, bilirubin dropped to 1.7 from 2.8, AST and ALT are trending down to 48 and 209 from 131 and 393 respectively. Alkaline phosphatase dropped to 149 from 204, lipase dropped to 355 from 1901 yesterday. GI was consulted, and per Dr. Germain, the patient does not require any surgical intervention at this point. We will monitor symptoms and repeat labs in a.m. REVIEW OF SYSTEMS CONSTITUTIONAL: Denies fevers, chills, or night sweats. No unintentional weight loss reported. NEUROLOGICAL: Denies headache, amaurosis fugax, motor weakness, sensory deficit, vertigo/spinning sensation, gait abnormalities, or tremors. ENT: No hearing loss, otalgia, otorrhea, rhinitis, rhinorrhea, hoarseness, or sore throat. CARDIOVASCULAR: Denies any exertional angina, dyspnea on exertion, orthopnea, paroxysmal nocturnal dyspnea, palpitations, life-threatening arrhythmias, claudication. PULMONARY: Denies any shortness of breath, cough, phlegm/sputum, hemoptysis, pleuritic chest pain. SLEEP: Denies morning headaches, daytime somnolence or napping. Denies difficulty falling asleep, staying asleep, waking from sleep. Denies knowledge of snoring. GASTROINTESTINAL: Midepigastric abdominal pain 4/10, radiating to bilateral flanks. Denies any type of dysphagia to either liquids or solids. Denies nausea, vomiting, pyrosis, early satiety,diarrhea, constipation, or changes in stool consistency or caliber. Denies coffee-ground emesis, hematemesis, hematochezia, or melanotic stools. GENITOURINARY: Denies frequency, urgency, nocturia, hematuria or incontinence (Storage/Irritative symptoms.) Low urinary stream, straining to void, urinary intermittency or hesitancy, splitting of the voiding stream, terminal dribbling. ENDOCRINOLOGIC: Denies polyuria, polydipsia, polyphagia or heat/cold intolerances. HEMATOLOGIC: Denies thrombophilia/previous clots, or coagulopathy/bleeding disorders. ONCOLOGIC: Denies personal history of malignancy. DERMATOLOGIC: Denies rashes or pruritus. PSYCHIATRIC: Denies any suicidal or homicidal ideation. Denies hallucinations. PHYSICAL EXAM GENERAL APPEARANCE: The patient is awake, alert, and oriented, in no acute cardiopulmonary distress, obese. NEUROLOGICAL: Cranial nerves II-XII grossly intact. Motor is 5/5 in bilateral upper and lower extremities proximal to distal. No sensory deficits. HEENT: Face is symmetric. Pupils are equal and reactive. Extraocular movements are intact. NECK: Supple. No JVD. No thyromegaly. No submental, submandibular, pre- /postauricular, occipital or supraclavicular lymphadenopathy. CHEST: Normal chest expansion. No Telemetry. LUNGS: Absence of any rales, rhonchi or any wheezing. CARDIOVASCULAR: Regular. S1 and S2 normal. No appreciable rubs, murmurs or gallops. ABDOMEN: Midepigastric abdominal pain 4/10, radiating to bilateral flanks. Soft, positive bowel sounds, nondistended, no guarding, no rebound, no masses no hepatomegaly, no splenomegaly, no Gil's sign, no hernias : Deferred. No Narvaez. EXTREMITIES: Non-edematous and not cyanotic. No clubbing. Good capillary refill. SKIN: No skin breakdown. Vital Signs (last 8hr) Date Time Temp Pulse Resp B/P (MAP) Pulse Ox O2 Delivery O2 Flow Rate FiO2 06/30/24 11:53 98.4 102 19 135/85 96 Room Air 06/30/24 08:21 98.4 109 19 152/90 92 Room Air LABS: Laboratory: Test 06/30/24 12:38 06/30/24 04:32 06/29/24 05:07 Range/Units Whole Blood Glucose 96 70-110 MG/DL White Blood Count 9.7 4.8-10.8 K/uL Red Blood Count 4.36 4.00-5.50 MIL/uL Hemoglobin 12.1 12.0-16.0 g/dL Hematocrit 36.3 36-48 % Mean Corpuscular Volume 83.3 79-99 fL Mean Corpuscular Hemoglobin 27.8 27.0-33.0 pg Mean Corpuscular Hemoglobin Concent 33.3 32.0-36.0 g/dL Red Cell Distribution Width 14.0 11.0-15.5 % Platelet Count 230 130-400 K/uL Mean Platelet Volume 10.4 7.5-10.5 fL Immature Granulocyte % (Auto) 0.4 0-1 % Neutrophils (%) (Auto) 83.5 H 40.0-77.0 % Lymphocytes (%) (Auto) 9.7 L 21.0-51.0 % Monocytes (%) (Auto) 5.2 3.0-13.0 % Eosinophils (%) (Auto) 1.0 0.0-8.0 % Basophils (%) (Auto) 0.2 0.0-5.0 % Neutrophils # (Auto) 8.1 H 1.8-7.7 K/uL Lymphocytes # (Auto) 0.9 L 1.0-4.8 K/uL Monocytes # (Auto) 0.5 0.1-1.0 K/uL Eosinophils # (Auto) 0.10 0.00-0.70 K/uL Basophils # (Auto) 0.02 0.00-0.20 K/uL Absolute Immature Granulocyte (auto 0.04 0-1 K/uL Nucleated Red Blood Cells 0.0 0.0-0.19 % Sodium Level 143 136-145 mmol/L Potassium Level 2.9 *L 3.5-5.1 mmol/L Chloride Level 107 101-111 mmol/L Carbon Dioxide Level 29 21-32 mmol/L Blood Urea Nitrogen 7 7-18 mg/dL Creatinine 0.6 0.5-1.0 mg/dL Glomerular Filtration Rate Calc 111 >90 mL/min Random Glucose 107 H 70-105 mg/dL Total Calcium 7.8 L 8.5-10.1 mg/dL Magnesium Level 1.90 1.80-2.40 mg/dL Total Bilirubin 1.7 #H 0.2-1.0 mg/dL Aspartate Amino Transf (AST/SGOT) 48 H 10-37 U/L Alanine Aminotransferase (ALT/SGPT) 209 #H 12-78 U/L Alkaline Phosphatase 149 #H 50-136 U/L Total Protein 5.9 L 6.0-8.3 g/dL Albumin 2.4 L 3.5-5.0 g/dL Lipase 355 H 16-77 U/L White Cell Morphology Comment See comments Erythrocyte Sedimentation Rate 45 H 0-20 MM/HR Current Medications Medications (Trade) Dose Ordered Sig/[place] Route PRN Reason Start Time Stop Time Status Last Admin Dose Admin Acetaminophen (TYLenol 325MG TAB) 650 mg Q4H PRN PO MILD PAIN (1-3) 06/28/24 09:00 07/28/24 08:59 06/30/24 06:15 650 MG Acetaminophen (TYLenol 325MG TAB) 650 mg Q6H PRN PO TEMPERATURE GREATER THAN 101.5 06/28/24 09:00 06/28/24 08:56 DC Acetaminophen/ Codeine Phosphate (TYLenol-coDEINE TAB) 1 tab Q6H PRN PO MODERATE PAIN (4-6) 06/28/24 09:00 07/28/24 08:59 06/30/24 01:17 1 TAB Acetaminophen/ Codeine Phosphate (TYLenol-coDEINE TAB) 2 tab Q6H PRN PO SEVERE PAIN (7-10) 06/28/24 09:00 06/28/24 14:55 DC 06/28/24 11:26 2 TAB Enoxaparin Sodium (Lovenox) 30 mg DAILY SQ 06/28/24 09:00 07/28/24 08:59 06/30/24 09:33 30 MG Famotidine (Pepcid 20mg Vial) 20 mg BID IV 06/28/24 09:00 07/28/24 08:59 06/30/24 09:31 20 MG Hydralazine HCl (APRESOLine 20MG INJ) 10 mg Q6H PRN IV ADMINISTER FOR SBP/DBP>160/110 06/28/24 19:00 07/28/24 18:59 Hydromorphone HCl (DiLAUDid 1MG INJ) 0.5 mg Q4H PRN IV SEVERE PAIN (7-10) 06/28/24 09:00 06/28/24 08:55 DC Insulin Human Regular (humuLIN R 100 UNIT/ML 3ML) INSULIN SLIDING SCAL... Q6H6 SQ 06/28/24 12:00 07/28/24 11:59 Magnesium Sulfate 50 ml @ 0 mls/hr PROTOCOL PRN IV MAGNESIUM PROTOCOL 06/28/24 09:00 07/28/24 08:59 06/29/24 09:59 25 MLS/HR Morphine Sulfate (morPHINE 2MG SYG) 2 mg Q4H PRN IV MODERATE PAIN (4-6) 06/28/24 09:00 06/28/24 08:55 DC Morphine Sulfate (morPHINE 2MG SYG) 2 mg Q4H PRN IVP SEVERE PAIN (7-10) 06/28/24 15:00 07/05/24 14:59 06/29/24 18:30 2 MG Ondansetron HCl (zoFRAN 4MG INJ) 4 mg Q6H PRN IV NAUSEA/VOMITING 06/28/24 09:00 07/28/24 08:59 Piperacillin Sod/ Tazobactam Sod 50 ml @ 12.5 mls/hr ZOSY8 IV 06/28/24 13:00 07/08/24 12:59 06/30/24 04:46 12.5 MLS/HR Potassium Chloride 100 ml @ 100 mls/hr AD PRN IV POTASSIUM PROTOCOL 06/28/24 09:00 07/28/24 08:59 06/29/24 16:48 100 MLS/HR Potassium Chloride (K-Dur 10meq Sr Tab) 10 meq AD PRN PO POTASSIUM PROTOCOL 06/28/24 15:00 07/28/24 08:59 Potassium Chloride (K-Dur/Klor-Con 20meq) 10 meq AD PRN PO POTASSIUM PROTOCOL 06/28/24 09:00 06/28/24 14:54 DC Potassium Chloride (KCl 10% Elixir 20meq/15ml) 10 meq AD PRN PO POTASSIUM PROTOCOL 06/28/24 09:00 07/28/24 08:59 Sodium Chloride 500 ml @ 0 mls/hr Q0M IV 06/29/24 16:30 07/29/24 16:29 06/29/24 16:30 999 MLS/HR Sodium Chloride 1,000 ml @ 125 mls/hr Q8H IV 06/28/24 09:00 07/28/24 08:59 06/30/24 07:50 125 MLS/HR DIAGNOSTICS / RADIOLOGY: [place] [address] [place] [address] IMAGING REPORT Signed PATIENT: JOHNATHAN MAHONEY MR#: [id number] : 1975 SEX: F AGE: 49 LOCATION: [facility] ORDER 0 STATUS: REG ER REPORT#: [id number] SERVICE 9 REASON: cp ORDERING PHYSICIAN: DIAMOND CARVAJAL MD PROCEDURE: CXR1VW - CHEST 1VW Exam Type: CHEST 1VW Clinical Information: cp Comparison: None Findings: The lungs are clear of infiltrates. The heart is normal in size. The bony and soft tissue structures of the chest are unremarkable. Impression: Clear lungs. DICTATED BY: BRIANNA LANDA MD DATE: 06/28/24830 ELECTRONICALLY SIGNED BY: BRIANNA LANDA MD DATE: 06/28/24842 [place] [address] [id number] IMAGING REPORT Signed PATIENT: JOHNATHAN MAHONEY MR#: [id number] : 1975 SEX: F AGE: 49 LOCATION: [facility] ORDER 0427 STATUS: [facility] REPORT#: [id number] SERVICE 5 REASON: ruq pain ORDERING PHYSICIAN: DIAMOND CARVAJAL MD PROCEDURE: ABDRUQLTD - US ABDOMINAL RUQ\LTD Exam Type: US ABDOMINAL RUQ\E\LTD Clinical Information: ruq pain Comparison: None Findings: The liver shows increased echogenicity consistent with fatty liver infiltration and is enlarged. The liver measures 16.3 cm in length. Doppler evaluation shows patent portal and hepatic veins. The gallbladder shows cholelithiasis. No acute or chronic inflammatory changes are seen. The gallbladder wall thickness is 2 mm. No bile duct dilatation is noted. The common bile duct measures 5 mm. The right kidney is not visualized. The pancreas is within normal limits. IMPRESSION: Cholelithiasis. DICTATED BY: BRIANNA LANDA MD DATE: 06/28/24826 ELECTRONICALLY SIGNED BY: BRIANNA LANDA MD DATE: 06/28/24830 [place] [id number] IMAGING REPORT Signed PATIENT: JOHNATHAN MAHONEY MR#: [id number] : 1975 SEX: F AGE: 49 LOCATION: [facility] ORDER 6 STATUS: [facility] REPORT#: [id number] SERVICE 5 REASON: ruq pain ORDERING PHYSICIAN: DIAMOND CARVAJAL MD PROCEDURE: ABD PEL WO - CT ABDOMEN/PELVIS W/O CONTRAST Exam Type: CT ABDOMEN/PELVIS W/O CONTRAST Clinical Information: ruq pain Comparison: None CT Dose Index (CTDI): 10.20 mGy Dose Length Product (DLP): 530.00 total mGy-cm PROTOCOL: Routine noncontrast helical scanning of the abdomen and pelvis was performed at 5mm collimation. Findings: No evidence of nephro or ureterolithiasis is found. No hydronephrosis or ureteral dilatation is seen. The lung bases are clear. The stomach is unremarkable. It shows no wall thickening. No gross ulceration is seen. It is not overly distended. There are no surrounding inflammatory changes. No wall lesions are identified to suggest cancer. The spleen is unremarkable. It is not enlarged. Inflammation of the pancreas is seen consistent with acute pancreatitis. No fluid collections noted. The gallbladder is unremarkable. It shows no cholelithiasis. The gallbladder wall is normal in thickness. There is no pericholecystic fluid. The is no acute or chronic inflammation noted. The adrenal glands are unremarkable. There is no enlargement. No lesions are noted. The liver is unremarkable. It shows no focal masses. The appendix is unremarkable. It shows no evidence of inflammation. No appendicolith is seen. The small bowel is unremarkable. There is no evidence of dilatation to suggest obstruction. No evidence of adynamic ileus is seen. There is no small bowel wall thickening to suggest enteritis. The colon is unremarkable. The urinary bladder is unremarkable. There is no wall thickening to suggest tumor or inflammation. There are no intraluminal calculi. There are no diverticula. There is no evidence of chronic bladder outlet obstruction. There is no evidence of urinary bladder distention to suggest urinary retention. The other pelvic structures are unremarkable. The bony and vascular structures are unremarkable for the patient's age. IMPRESSION: Acute pancreatitis. Preliminary report with this information was sent by the on-call radiologist to ordering physicians time of exam. This study was performed using dose reduction techniques to include automated exposure control and/or adjustment of the mA and/or kV according to patient size. DICTATED BY: BRIANNA LANDA MD DATE: 06/28/24806 ELECTRONICALLY SIGNED BY: BRIANNA LANDA MD DATE: 06/28/24810 [place] [id number] IMAGING REPORT Signed PATIENT: JOHNATHAN MAHONEY MR#: [id number] : 1975 SEX: F AGE: 49 LOCATION: [facility] ORDER 8 STATUS: ADM IN REPORT#: [id number] SERVICE 6 REASON: CHOLELITHIASIS ORDERING PHYSICIAN: SHAMIKA MENDOZA MD PROCEDURE: MRCP WO - MRCP(ABDWO)CHOLANGIOPANCREATOG Exam Type: MRI OF THE ABDOMEN WITHOUT CONTRAST and MR cholangiopancreatography Comparison Study: none History: CHOLELITHIASIS PROTOCOL: Examination is done with multiecho multiplanar sequences. ASSET with multiplanar 3-D reconstructions MR cholangiopancreatography sequences are also available for review. MRCP performed customary fashion. 2D axial FIESTA fat-saturated images of abdomen, coronal thick slab MRCP ASSET scan and coronal thin slab MRCP ASSET 3 mm images and maximum intensity projection postprocessing, MIP projected in the customary circumferential and head over heels fashion. FINDINGS: No evidence of nephro or ureterolithiasis is found. No hydronephrosis or ureteral dilatation is seen. The stomach is unremarkable. There is no evidence of gastric dilatation. No blastic thickening is noted to suggest inflammation or tumor. There is no perforation. There is no gastric outlet obstruction. There is no ulceration. The spleen is unremarkable. It is not enlarged. The pancreas shows normal anatomy. It is not fatty replaced. It shows no lesions. The pancreatic duct is not dilated. There is cholelithiasis. No evidence of acute inflammation of the gallbladder is seen by MRI. The adrenal glands are unremarkable. There is no enlargement. No lesions are noted. The liver is unremarkable. It shows no focal masses. The visualized segments of large and small bowel appear unremarkable. The bony and vascular structures are unremarkable for the patient's age. MRCP is likewise unremarkable. The common bile duct is well as the intrahepatic bile ducts are well seen without filling defects to suggest calculi. There are no areas of dilatation or abrupt cutoffs. There is mild ascites. IMPRESSION: CHOLELITHIASIS. Mild ascites. Otherwise normal MRCP. DICTATED BY: BRIANNA LANDA MD DATE: 06/29/24937 ELECTRONICALLY SIGNED BY: BRIANNA LANDA MD DATE: 06/29/24943 ASSESSMENT: Acute pancreatitis with severe elevation of lipase and biliary involvement, improving POA Transaminitis POA Hypokalemia POA Hyperglycemia POA PLAN: Acute pancreatitis with severe elevation of lipase and biliary involvement, improving POA Transaminitis, improving POA * Continue 0.9% Nacl 500 cc bolus daily. * Continue Zofran 4 mg IV every 6 hours when necessary for nausea and vomiting * Continue Zosyn Q8. * Start on clear liquid diet, advance as tolerated * Continue morphine 2 mg IV every 4 hours for pain. * Replace electrolyte with protocol as needed. * Continue on insulin sliding scale * AM Labs: CBC, CMP, Lipase, Magnesium The patient will be started with clear liquid diet today and we will advance diet as tolerated. Further recommendations will be based on clinical improvement and labs tomorrow. ATTESTATION BY PHYSICIAN I have seen and examined the patient. I reviewed the documentation, medical decision making, and treatment plan as noted by the resident provider above. I agree with the findings and plan of care. Dulce Luo MD, MANALI MD Jun 30, 2024 12:53
--- NOTE | 2024-06-30 13:05 | NUR ---
IV ZOSYN DOSE SKIPPED IN ORDER TO ADMINISTER IV MAGNESIUM AND IV POTASSIUM.
[2024-06-30] MEDS: PoTASSium chl 10% ELIXIR 20MEQ 20 MEQ/15 ML UDCUP PO PRN (14:52)
[2024-06-30] MEDS: PoTASSium chloRIDE 10MEQ SR 10 MEQ/TAB TAB.SR.24H PO PRN (17:09)
[2024-06-30] MEDS: hydrOXYzine 25 MG TABLET PO SCH (21:10)
[2024-06-30] MEDS ORDERED: LORazepam 0.5 MG TABLET PO PRN (22:00)
[2024-07-01] VITALS (7 sets, daily range): BP systolic 119–158; BP diastolic 72–95; PULSE 86–105; RESP 18; TEMP 98.5–98.9; O2SAT 93–96
[2024-07-01 04:50] LABS: BASOPHILS # (AUTO) 0.02 K/uL (0.00-0.20); BASOPHILS % (AUTO) 0.2 % (0.0-5.0); EOSINOPHILS # (AUTO) 0.22 K/uL (0.00-0.70); EOSINOPHILS % (AUTO) 2.3 % (0.0-8.0); HEMATOCRIT 37.6 % (36-48); IMMATURE GRANULOCYTE ABSOLUTE 0.05 K/uL (0-1); LYMPHOCYTES # (AUTO) 0.8 K/uL (1.0-4.8); LYMPHOCYTES % (AUTO) 7.9 % (21.0-51.0); MEAN CORPUSCULAR HEMOGLOBIN 27.8 pg (27.0-33.0); MEAN CORPUSCULAR VOLUME 84.3 fL (79-99); MONOCYTES # (AUTO) 0.6 K/uL (0.1-1.0); MONOCYTES % (AUTO) 5.8 % (3.0-13.0); NEUTROPHILS # (AUTO) 8.1 K/uL (1.8-7.7); NEUTROPHILS % (AUTO) 83.3 % (40.0-77.0); PLATELET COUNT (AUTO) 271 K/uL (130-400); RED BLOOD CELL COUNT(AUTO) 4.46 MIL/uL (4.00-5.50); WHITE BLOOD COUNT (AUTO) 9.7 K/uL (4.8-10.8)
[2024-07-01 05:13] LABS: ALBUMIN 2.5 g/dL (3.5-5.0); BILIRUBIN,TOTAL 1.9 mg/dL (0.2-1.0); CREATININE 0.6 mg/dL (0.5-1.0); MAGNESIUM 1.8 mg/dL (1.80-2.40); TOTAL PROTEIN, SERUM 6.5 g/dL (6.0-8.3)
--- NOTE | 2024-07-01 13:07 | PN ---
[facility] PROGRESS NOTE Date of Service: Jul 01, 2024 Time of Service: 13:07 SUBJECTIVE: The patient is a 49-year-old female with a no significant past medical history presented to ED on 06/28 with the chief complaints of mild epigastric abdominal pain radiating to back and bilateral flanks of 12 hours associated with the episodes of nausea and vomiting. She reported no history of similar episodes before. On presentation she was afebrile, blood pressure was 188/90. Labs showed a WBC of 11.4 with neutrophilia, potassium 2.8, total bilirubin 2.0, AST 573, ALT 446, alkaline phosphatase 222, triglycerides 88, lipase [id number]. Abdominal ultrasound showed cholelithiasis. Abdomen and pelvis CT showed acute pancreatitis. The patient received analgesics, Zofran, Protonix, 0.9% Na Cl bolus, Zosyn and was admitted for the management of acute pancreatitis. 06/30- The patient was examined today at bedside, lying comfortably. Epigastric pain has improved as compared to presentation and now it is 4/10 still radiating to bilateral flanks. She has been NPO, remains afebrile, has been tachycardic with pulse rates around 110, SBP in 130s in 150s. She is saying she is nervous about her condition. She is complaining of headaches possibly because of NPO and requesting if she can eat. Additionally she is saying that she can not take deep breath without discomfort, and is having pain with deep breathing. Labs: WBC dropped to 9.7 From 12, potassium 2.9, bilirubin dropped to 1.7 from 2.8, AST and ALT are trending down to 48 and 209 from 131 and 393 respectively. Alkaline phosphatase dropped to 149 from 204, lipase dropped to 355 from 1901 yesterday. GI was consulted, and per Dr. Germain, the patient does not require any surgical intervention at this point. We will monitor symptoms and repeat labs in a.m. 07/01- The patient was examined at bedside. Running slightly hypertensive with systolic blood pressure in 140s. She had an episode of a abdominal pain radiating to bilateral flank last night and subsided after morphine. At present the pain is 3/10, cramping in type, is improving. She tolerated clear liquid diet yesterday. Labs: Potassium went up to 3.0 from 2.9, total bilirubin 1.9, AST went up to 91 from 48 , ALT went up to 213 from 209, alkaline phosphatase went up to 313 from 149, lipase went down to 117 from 355. Per GI, no surgical intervention has planned. We will advance diet to GI soft tonight and reevaluate tomorrow. We will also consult general surgery if the patient requires cholecystectomy during this admission. REVIEW OF SYSTEMS CONSTITUTIONAL: Denies fevers, chills, or night sweats. No unintentional weight loss reported. NEUROLOGICAL: Denies headache, amaurosis fugax, motor weakness, sensory deficit, vertigo/spinning sensation, gait abnormalities, or tremors. ENT: No hearing loss, otalgia, otorrhea, rhinitis, rhinorrhea, hoarseness, or sore throat. CARDIOVASCULAR: Denies any exertional angina, dyspnea on exertion, orthopnea, paroxysmal nocturnal dyspnea, palpitations, life-threatening arrhythmias, claudication. PULMONARY: Denies any shortness of breath, cough, phlegm/sputum, hemoptysis, pleuritic chest pain. SLEEP: Denies morning headaches, daytime somnolence or napping. Denies difficulty falling asleep, staying asleep, waking from sleep. Denies knowledge of snoring. GASTROINTESTINAL: Midepigastric abdominal pain 3/10, radiating to bilateral flanks. Denies any type of dysphagia to either liquids or solids. Denies nausea, vomiting, pyrosis, early satiety,diarrhea, constipation, or changes in stool consistency or caliber. Denies coffee-ground emesis, hematemesis, hematochezia, or melanotic stools. GENITOURINARY: Denies frequency, urgency, nocturia, hematuria or incontinence (Storage/Irritative symptoms.) Low urinary stream, straining to void, urinary intermittency or hesitancy, splitting of the voiding stream, terminal dribbling. ENDOCRINOLOGIC: Denies polyuria, polydipsia, polyphagia or heat/cold intolerances. HEMATOLOGIC: Denies thrombophilia/previous clots, or coagulopathy/bleeding disorders. ONCOLOGIC: Denies personal history of malignancy. DERMATOLOGIC: Denies rashes or pruritus. PSYCHIATRIC: Denies any suicidal or homicidal ideation. Denies hallucinations. PHYSICAL EXAM GENERAL APPEARANCE: The patient is awake, alert, and oriented, in no acute cardiopulmonary distress, obese. NEUROLOGICAL: Cranial nerves II-XII grossly intact. Motor is 5/5 in bilateral upper and lower extremities proximal to distal. No sensory deficits. HEENT: Face is symmetric. Pupils are equal and reactive. Extraocular movements are intact. NECK: Supple. No JVD. No thyromegaly. No submental, submandibular, pre- /postauricular, occipital or supraclavicular lymphadenopathy. CHEST: Normal chest expansion. No Telemetry. LUNGS: Absence of any rales, rhonchi or any wheezing. CARDIOVASCULAR: Regular. S1 and S2 normal. No appreciable rubs, murmurs or gallops. ABDOMEN: Midepigastric abdominal pain 3/10, radiating to bilateral flanks. Soft, positive bowel sounds, nondistended, no guarding, no rebound, no masses no hepatomegaly, no splenomegaly, no Gil's sign, no hernias : Deferred. No Narvaez. EXTREMITIES: Non-edematous and not cyanotic. No clubbing. Good capillary refill. SKIN: No skin breakdown. Vital Signs (last 8hr) Date Time Temp Pulse Resp B/P (MAP) Pulse Ox O2 Delivery O2 Flow Rate FiO2 07/01/24 11:30 98.4 105 18 158/88 96 Room Air 07/01/24 08:08 98.4 100 18 156/95 93 Room Air LABS: Laboratory: Test 07/01/24 12:19 07/01/24 04:22 Range/Units Whole Blood Glucose 151 H 70-110 MG/DL White Blood Count 9.7 4.8-10.8 K/uL Red Blood Count 4.46 4.00-5.50 MIL/uL Hemoglobin 12.4 12.0-16.0 g/dL Hematocrit 37.6 36-48 % Mean Corpuscular Volume 84.3 79-99 fL Mean Corpuscular Hemoglobin 27.8 27.0-33.0 pg Mean Corpuscular Hemoglobin Concent 33.0 32.0-36.0 g/dL Red Cell Distribution Width 14.0 11.0-15.5 % Platelet Count 271 130-400 K/uL Mean Platelet Volume 10.5 7.5-10.5 fL Immature Granulocyte % (Auto) 0.5 0-1 % Neutrophils (%) (Auto) 83.3 H 40.0-77.0 % Lymphocytes (%) (Auto) 7.9 L 21.0-51.0 % Monocytes (%) (Auto) 5.8 3.0-13.0 % Eosinophils (%) (Auto) 2.3 0.0-8.0 % Basophils (%) (Auto) 0.2 0.0-5.0 % Neutrophils # (Auto) 8.1 H 1.8-7.7 K/uL Lymphocytes # (Auto) 0.8 L 1.0-4.8 K/uL Monocytes # (Auto) 0.6 0.1-1.0 K/uL Eosinophils # (Auto) 0.22 0.00-0.70 K/uL Basophils # (Auto) 0.02 0.00-0.20 K/uL Absolute Immature Granulocyte (auto 0.05 0-1 K/uL Nucleated Red Blood Cells 0.0 0.0-0.19 % Sodium Level 142 136-145 mmol/L Potassium Level 3.0 *L 3.5-5.1 mmol/L Chloride Level 105 101-111 mmol/L Carbon Dioxide Level 28 21-32 mmol/L Blood Urea Nitrogen 3 L 7-18 mg/dL Creatinine 0.6 0.5-1.0 mg/dL Glomerular Filtration Rate Calc 111 >90 mL/min Random Glucose 118 H 70-105 mg/dL Total Calcium 8.3 L 8.5-10.1 mg/dL Magnesium Level 1.80 1.80-2.40 mg/dL Total Bilirubin 1.9 H 0.2-1.0 mg/dL Aspartate Amino Transf (AST/SGOT) 91 H 10-37 U/L Alanine Aminotransferase (ALT/SGPT) 213 H 12-78 U/L Alkaline Phosphatase 313 #H 50-136 U/L Total Protein 6.5 6.0-8.3 g/dL Albumin 2.5 L 3.5-5.0 g/dL Lipase 117 H 16-77 U/L Current Medications Medications (Trade) Dose Ordered Sig/[place] Route PRN Reason Start Time Stop Time Status Last Admin Dose Admin Acetaminophen (TYLenol 325MG TAB) 650 mg Q4H PRN PO MILD PAIN (1-3) 06/28/24 09:00 07/28/24 08:59 06/30/24 06:15 650 MG Acetaminophen (TYLenol 325MG TAB) 650 mg Q6H PRN PO TEMPERATURE GREATER THAN 101.5 06/28/24 09:00 06/28/24 08:56 DC Acetaminophen/ Codeine Phosphate (TYLenol-coDEINE TAB) 1 tab Q6H PRN PO MODERATE PAIN (4-6) 06/28/24 09:00 07/28/24 08:59 06/30/24 01:17 1 TAB Acetaminophen/ Codeine Phosphate (TYLenol-coDEINE TAB) 2 tab Q6H PRN PO SEVERE PAIN (7-10) 06/28/24 09:00 06/28/24 14:55 DC 06/28/24 11:26 2 TAB Enoxaparin Sodium (Lovenox) 30 mg DAILY SQ 06/28/24 09:00 07/28/24 08:59 07/01/24 09:55 30 MG Famotidine (Pepcid 20mg Vial) 20 mg BID IV 06/28/24 09:00 07/28/24 08:59 07/01/24 09:52 20 MG Guaifenesin/ Dextromethorphan (RobiTUSSin DM 200/20MG 10ML) 10 ml Q6H PRN PO COUGH 06/30/24 22:00 07/30/24 21:59 Hydralazine HCl (APRESOLine 20MG INJ) 10 mg Q6H PRN IV ADMINISTER FOR SBP/DBP>160/110 06/28/24 19:00 07/28/24 18:59 Hydromorphone HCl (DiLAUDid 1MG INJ) 0.5 mg Q4H PRN IV SEVERE PAIN (7-10) 06/28/24 09:00 06/28/24 08:55 DC Hydroxyzine HCl (ATArax 25MG TAB) 25 mg ONCE PO 06/30/24 20:30 06/30/24 23:59 DC 06/30/24 21:10 25 MG Insulin Human Regular (humuLIN R 100 UNIT/ML 3ML) INSULIN SLIDING SCAL... Q6H6 SQ 06/28/24 12:00 07/28/24 11:59 Lorazepam (AtiVAN) 0.25 mg ONCE PRN PO As needed for anxiety 06/30/24 22:00 06/30/24 23:59 DC Magnesium Sulfate 50 ml @ 0 mls/hr PROTOCOL PRN IV MAGNESIUM PROTOCOL 06/28/24 09:00 07/28/24 08:59 07/01/24 05:37 25 MLS/HR Morphine Sulfate (morPHINE 2MG SYG) 2 mg Q4H PRN IV MODERATE PAIN (4-6) 06/28/24 09:00 06/28/24 08:55 DC Morphine Sulfate (morPHINE 2MG SYG) 2 mg Q4H PRN IVP SEVERE PAIN (7-10) 06/28/24 15:00 07/05/24 14:59 06/30/24 21:17 2 MG Ondansetron HCl (zoFRAN 4MG INJ) 4 mg Q6H PRN IV NAUSEA/VOMITING 06/28/24 09:00 07/28/24 08:59 Piperacillin Sod/ Tazobactam Sod 50 ml @ 12.5 mls/hr ZOSY8 IV 06/28/24 13:00 07/08/24 12:59 07/01/24 04:16 12.5 MLS/HR Potassium Chloride 100 ml @ 100 mls/hr AD PRN IV POTASSIUM PROTOCOL 06/28/24 09:00 07/28/24 08:59 06/30/24 18:36 100 MLS/HR Potassium Chloride (K-Dur 10meq Sr Tab) 10 meq AD PRN PO POTASSIUM PROTOCOL 06/28/24 15:00 07/28/24 08:59 06/30/24 18:34 10 MEQ Potassium Chloride (K-Dur/Klor-Con 20meq) 10 meq AD PRN PO POTASSIUM PROTOCOL 06/28/24 09:00 06/28/24 14:54 DC Potassium Chloride (KCl 10% Elixir 20meq/15ml) 10 meq AD PRN PO POTASSIUM PROTOCOL 06/28/24 09:00 07/28/24 08:59 07/01/24 09:53 10 MEQ Sodium Chloride 500 ml @ 0 mls/hr Q0M IV 06/29/24 16:30 07/29/24 16:29 06/29/24 16:30 999 MLS/HR Sodium Chloride 1,000 ml @ 125 mls/hr Q8H IV 06/28/24 09:00 07/28/24 08:59 07/01/24 10:02 125 MLS/HR DIAGNOSTICS / RADIOLOGY: [facility] [place] [address] [place] [address] IMAGING REPORT Signed PATIENT: JOHNATHAN MAHONEY MR#: [id number] : 1975 SEX: F AGE: 49 LOCATION: 3BH ORDER 8 STATUS: ADM IN REPORT#: [id number] SERVICE 6 REASON: CHOLELITHIASIS ORDERING PHYSICIAN: SHAMIKA MENDOZA MD PROCEDURE: MRCP WO - MRCP(ABDWO)CHOLANGIOPANCREATOG Exam Type: MRI OF THE ABDOMEN WITHOUT CONTRAST and MR cholangiopancreatography Comparison Study: none History: CHOLELITHIASIS PROTOCOL: Examination is done with multiecho multiplanar sequences. ASSET with multiplanar 3-D reconstructions MR cholangiopancreatography sequences are also available for review. MRCP performed customary fashion. 2D axial FIESTA fat-saturated images of abdomen, coronal thick slab MRCP ASSET scan and coronal thin slab MRCP ASSET 3 mm images and maximum intensity projection postprocessing, MIP projected in the customary circumferential and head over heels fashion. FINDINGS: No evidence of nephro or ureterolithiasis is found. No hydronephrosis or ureteral dilatation is seen. The stomach is unremarkable. There is no evidence of gastric dilatation. No blastic thickening is noted to suggest inflammation or tumor. There is no perforation. There is no gastric outlet obstruction. There is no ulceration. The spleen is unremarkable. It is not enlarged. The pancreas shows normal anatomy. It is not fatty replaced. It shows no lesions. The pancreatic duct is not dilated. There is cholelithiasis. No evidence of acute inflammation of the gallbladder is seen by MRI. The adrenal glands are unremarkable. There is no enlargement. No lesions are noted. The liver is unremarkable. It shows no focal masses. The visualized segments of large and small bowel appear unremarkable. The bony and vascular structures are unremarkable for the patient's age. MRCP is likewise unremarkable. The common bile duct is well as the intrahepatic bile ducts are well seen without filling defects to suggest calculi. There are no areas of dilatation or abrupt cutoffs. There is mild ascites. IMPRESSION: CHOLELITHIASIS. Mild ascites. Otherwise normal MRCP. DICTATED BY: BRIANNA LANDA MD DATE: 06/29/24 0938 ELECTRONICALLY SIGNED BY: BRIANNA LANDA MD DATE: 06/29/2444 [facility] [address] [place], [place] [id number] IMAGING REPORT Signed PATIENT: JOHNATHAN MAHONEY MR#: [id number] : 1975 SEX: F AGE: 49 LOCATION: [facility] ORDER 6 STATUS: REG ER REPORT#: [id number] SERVICE 5 REASON: ruq pain ORDERING PHYSICIAN: DIAMOND CARVAJAL MD PROCEDURE: ABD PEL WO - CT ABDOMEN/PELVIS W/O CONTRAST Exam Type: CT ABDOMEN/PELVIS W/O CONTRAST Clinical Information: ruq pain Comparison: None CT Dose Index (CTDI): 10.20 mGy Dose Length Product (DLP): 530.00 total mGy-cm PROTOCOL: Routine noncontrast helical scanning of the abdomen and pelvis was performed at 5mm collimation. Findings: No evidence of nephro or ureterolithiasis is found. No hydronephrosis or ureteral dilatation is seen. The lung bases are clear. The stomach is unremarkable. It shows no wall thickening. No gross ulceration is seen. It is not overly distended. There are no surrounding inflammatory changes. No wall lesions are identified to suggest cancer. The spleen is unremarkable. It is not enlarged. Inflammation of the pancreas is seen consistent with acute pancreatitis. No fluid collections noted. The gallbladder is unremarkable. It shows no cholelithiasis. The gallbladder wall is normal in thickness. There is no pericholecystic fluid. The is no acute or chronic inflammation noted. The adrenal glands are unremarkable. There is no enlargement. No lesions are noted. The liver is unremarkable. It shows no focal masses. The appendix is unremarkable. It shows no evidence of inflammation. No appendicolith is seen. The small bowel is unremarkable. There is no evidence of dilatation to suggest obstruction. No evidence of adynamic ileus is seen. There is no small bowel wall thickening to suggest enteritis. The colon is unremarkable. The urinary bladder is unremarkable. There is no wall thickening to suggest tumor or inflammation. There are no intraluminal calculi. There are no diverticula. There is no evidence of chronic bladder outlet obstruction. There is no evidence of urinary bladder distention to suggest urinary retention. The other pelvic structures are unremarkable. The bony and vascular structures are unremarkable for the patient's age. IMPRESSION: Acute pancreatitis. Preliminary report with this information was sent by the on-call radiologist to ordering physicians time of exam. This study was performed using dose reduction techniques to include automated exposure control and/or adjustment of the mA and/or kV according to patient size. DICTATED BY: BRIANNA LANDA MD DATE: 06/28/24806 ELECTRONICALLY SIGNED BY: BRIANNA LANDA MD DATE: 06/28/24810 ASSESSMENT: Acute pancreatitis with severe elevation of lipase and biliary involvement, improving POA Transaminitis POA Hypokalemia POA Hyperglycemia POA PLAN: Acute pancreatitis with severe elevation of lipase and biliary involvement, improving POA Transaminitis, improving POA * Continue 0.9% Nacl 500 cc bolus daily. * Continue Zofran 4 mg IV every 6 hours when necessary for nausea and vomiting * Discontinue Zosyn * GI soft diet will be started today, evaluate the tolerance tomorrow. * Continue morphine 2 mg IV every 4 hours for pain. * General surgery was consulted to provide recommendations with if the patient requires cholecystectomy. Recommendations will be appreciated. * Replace electrolyte with protocol as needed. * Continue on insulin sliding scale * AM Labs: CBC, BMP, Lipase Further recommendations will be based on clinical improvement and labs tomorrow. ATTESTATION BY PHYSICIAN I have seen and examined the patient. I reviewed the documentation, medical decision making, and treatment plan as noted by the resident provider above. I agree with the findings and plan of care. Dulce Luo MD, MANALI MD Jul 01, 2024 13:07
[2024-07-01] MEDS: guaiFENesin-DM 200/20MG 10ML PO PRN (16:11)
[2024-07-01] MEDS: INSULIN humuLIN R 100 UNIT/ML 3ML SQ SCH (23:30)
[2024-07-02] VITALS (7 sets, daily range): BP systolic 104–166; BP diastolic 60–99; PULSE 86–100; RESP 17–20; TEMP 97.7–99; O2SAT 96–97
[2024-07-02 06:16] LABS: BASOPHILS # (AUTO) 0.03 K/uL (0.00-0.20); BASOPHILS % (AUTO) 0.3 % (0.0-5.0); EOSINOPHILS # (AUTO) 0.41 K/uL (0.00-0.70); EOSINOPHILS % (AUTO) 4.7 % (0.0-8.0); HEMATOCRIT 35.4 % (36-48); IMMATURE GRANULOCYTE ABSOLUTE 0.03 K/uL (0-1); LYMPHOCYTES # (AUTO) 0.9 K/uL (1.0-4.8); LYMPHOCYTES % (AUTO) 9.7 % (21.0-51.0); MEAN CORPUSCULAR HEMOGLOBIN 28.3 pg (27.0-33.0); MEAN CORPUSCULAR HGB CONC 33.9 g/dL (32.0-36.0); MEAN CORPUSCULAR VOLUME 83.5 fL (79-99); MONOCYTES # (AUTO) 0.6 K/uL (0.1-1.0); NEUTROPHILS # (AUTO) 6.8 K/uL (1.8-7.7); PLATELET COUNT (AUTO) 267 K/uL (130-400); RED BLOOD CELL COUNT(AUTO) 4.24 MIL/uL (4.00-5.50); RED CELL DISTRIBUTION WIDTH 14.1 % (11.0-15.5); WHITE BLOOD COUNT (AUTO) 8.8 K/uL (4.8-10.8)
[2024-07-02 06:28] LABS: CREATININE 0.6 mg/dL (0.5-1.0); POTASSIUM 3.1 mmol/L (3.5-5.1)
[2024-07-02 09:50] LABS: ALBUMIN 2.4 g/dL (3.5-5.0); BILIRUBIN,DIRECT 0.4 mg/dL (0.0-0.3); BILIRUBIN,TOTAL 1.5 mg/dL (0.2-1.0); TOTAL PROTEIN, SERUM 6.3 g/dL (6.0-8.3)
[2024-07-02] MEDS: LISINOPRIL 2.5 MG TABLET PO SCH (10:07)
--- NOTE | 2024-07-02 11:19 | PN ---
[facility] PROGRESS NOTE Date of Service: Jul 02, 2024 Time of Service: 11:19 SUBJECTIVE: The patient is a 49-year-old female with a no significant past medical history presented to ED on 06/28 with the chief complaints of mild epigastric abdominal pain radiating to back and bilateral flanks of 12 hours associated with the episodes of nausea and vomiting. She reported no history of similar episodes before. On presentation she was afebrile, blood pressure was 188/90. Labs showed a WBC of 11.4 with neutrophilia, potassium 2.8, total bilirubin 2.0, AST 573, ALT 446, alkaline phosphatase 222, triglycerides 88, lipase [id number]. Abdominal ultrasound showed cholelithiasis. Abdomen and pelvis CT showed acute pancreatitis. The patient received analgesics, Zofran, Protonix, 0.9% Na Cl bolus, Zosyn and was admitted for the management of acute pancreatitis. 06/30- The patient was examined today at bedside, lying comfortably. Epigastric pain has improved as compared to presentation and now it is 4/10 still radiating to bilateral flanks. She has been NPO, remains afebrile, has been tachycardic with pulse rates around 110, SBP in 130s in 150s. She is saying she is nervous about her condition. She is complaining of headaches possibly because of NPO and requesting if she can eat. Additionally she is saying that she can not take deep breath without discomfort, and is having pain with deep breathing. Labs: WBC dropped to 9.7 From 12, potassium 2.9, bilirubin dropped to 1.7 from 2.8, AST and ALT are trending down to 48 and 209 from 131 and 393 respectively. Alkaline phosphatase dropped to 149 from 204, lipase dropped to 355 from 1901 yesterday. GI was consulted, and per Dr. Germain, the patient does not require any surgical intervention at this point. We will monitor symptoms and repeat labs in a.m. 07/01- The patient was examined at bedside. Running slightly hypertensive with systolic blood pressure in 140s. She had an episode of a abdominal pain radiating to bilateral flank last night and subsided after morphine. At present the pain is 3/10, cramping in type, is improving. She tolerated clear liquid diet yesterday. Labs: Potassium went up to 3.0 from 2.9, total bilirubin 1.9, AST went up to 91 from 48 , ALT went up to 213 from 209, alkaline phosphatase went up to 313 from 149, lipase went down to 117 from 355. Per GI, no surgical intervention has planned. We will advance diet to GI soft tonight and reevaluate tomorrow. We will also consult general surgery if the patient requires cholecystectomy during this admission. 07/02/24- The patient was examined at bedside today. Running hypertensive with SBP in 140s. She was started with a GI soft diet today in the morning, is saying that her stomach did hurt little bit but she tolerated it well. She had a bowel movement today in the morning, urinating well, denies any burning in the micturition. She still has a mild abdominal pain 4/10 and midepigastric region. Labs: Potassium went up to 3.1 From 3.0, AST went down to 83 from 91, ALT went up to 242 from 213, lipase went down to 74 from 117. We are waiting for general surgery consult today for possible cholecystectomy during this admission. REVIEW OF SYSTEMS CONSTITUTIONAL: Denies fevers, chills, or night sweats. No unintentional weight loss reported. NEUROLOGICAL: Denies headache, amaurosis fugax, motor weakness, sensory deficit, vertigo/spinning sensation, gait abnormalities, or tremors. ENT: No hearing loss, otalgia, otorrhea, rhinitis, rhinorrhea, hoarseness, or sore throat. CARDIOVASCULAR: Denies any exertional angina, dyspnea on exertion, orthopnea, paroxysmal nocturnal dyspnea, palpitations, life-threatening arrhythmias, claudication. PULMONARY: Denies any shortness of breath, cough, phlegm/sputum, hemoptysis, pleuritic chest pain. SLEEP: Denies morning headaches, daytime somnolence or napping. Denies diff iculty falling asleep, staying asleep, waking from sleep. Denies knowledge of snoring. GASTROINTESTINAL: Midepigastric abdominal pain 4/10, radiating to bilateral flanks. Denies any type of dysphagia to either liquids or solids. Denies nausea, vomiting, pyrosis, early satiety,diarrhea, constipation, or changes in stool consistency or caliber. Denies coffee-ground emesis, hematemesis, hematochezia, or melanotic stools. GENITOURINARY: Denies frequency, urgency, nocturia, hematuria or incontinence (Storage/Irritative symptoms.) Low urinary stream, straining to void, urinary intermittency or hesitancy, splitting of the voiding stream, terminal dribbling. ENDOCRINOLOGIC: Denies polyuria, polydipsia, polyphagia or heat/cold intolerances. HEMATOLOGIC: Denies thrombophilia/previous clots, or coagulopathy/bleeding disorders. ONCOLOGIC: Denies personal history of malignancy. DERMATOLOGIC: Denies rashes or pruritus. PSYCHIATRIC: Denies any suicidal or homicidal ideation. Denies hallucinations. PHYSICAL EXAM GENERAL APPEARANCE: The patient is awake, alert, and oriented, in no acute cardiopulmonary distress, obese. NEUROLOGICAL: Cranial nerves II-XII grossly intact. Motor is 5/5 in bilateral upper and lower extremities proximal to distal. No sensory deficits. HEENT: Face is symmetric. Pupils are equal and reactive. Extraocular movements are intact. NECK: Supple. No JVD. No thyromegaly. No submental, submandibular, pre-/postauricular, occipital or supraclavicular lymphadenopathy. CHEST: Normal chest expansion. No Telemetry. LUNGS: Absence of any rales, rhonchi or any wheezing. CARDIOVASCULAR: Regular. S1 and S2 normal. No appreciable rubs, murmurs or gallops. ABDOMEN: Midepigastric abdominal pain 4/10, radiating to bilateral flanks. Soft, positive bowel sounds, nondistended, no guarding, no rebound, no masses no hepatomegaly, no splenomegaly, no Gil's sign, no hernias : Deferred. No Narvaez. EXTREMITIES: Non-edematous and not cyanotic. No clubbing. Good capillary refill. SKIN: No skin breakdown. Vital Signs (last 8hr) Date Time Temp Pulse Resp B/P (MAP) Pulse Ox O2 Delivery O2 Flow Rate FiO2 07/02/24 08:26 99.0 90 18 132/60 92 Room Air 07/02/24 04:00 98.8 100 18 163/86 93 Room Air 21 LABS: Laboratory: Test 07/02/24 05:56 07/01/24 23:19 07/01/24 04:22 Range/Units White Blood Count 8.8 4.8-10.8 K/uL Red Blood Count 4.24 4.00-5.50 MIL/uL Hemoglobin 12.0 12.0-16.0 g/dL Hematocrit 35.4 L 36-48 % Mean Corpuscular Volume 83.5 79-99 fL Mean Corpuscular Hemoglobin 28.3 27.0-33.0 pg Mean Corpuscular Hemoglobin Concent 33.9 32.0-36.0 g/dL Red Cell Distribution Width 14.1 11.0-15.5 % Platelet Count 267 130-400 K/uL Mean Platelet Volume 10.0 7.5-10.5 fL Immature Granulocyte % (Auto) 0.3 0-1 % Neutrophils (%) (Auto) 78.0 H 40.0-77.0 % Lymphocytes (%) (Auto) 9.7 L 21.0-51.0 % Monocytes (%) (Auto) 7.0 3.0-13.0 % Eosinophils (%) (Auto) 4.7 0.0-8.0 % Basophils (%) (Auto) 0.3 0.0-5.0 % Neutrophils # (Auto) 6.8 1.8-7.7 K/uL Lymphocytes # (Auto) 0.9 L 1.0-4.8 K/uL Monocytes # (Auto) 0.6 0.1-1.0 K/uL Eosinophils # (Auto) 0.41 0.00-0.70 K/uL Basophils # (Auto) 0.03 0.00-0.20 K/uL Absolute Immature Granulocyte (auto 0.03 0-1 K/uL Nucleated Red Blood Cells 0.0 0.0-0.19 % Sodium Level 143 136-145 mmol/L Potassium Level 3.1 L 3.5-5.1 mmol/L Chloride Level 106 101-111 mmol/L Carbon Dioxide Level 30 21-32 mmol/L Blood Urea Nitrogen 2 L 7-18 mg/dL Creatinine 0.6 0.5-1.0 mg/dL Glomerular Filtration Rate Calc 111 >90 mL/min Random Glucose 116 H 70-105 mg/dL Total Calcium 8.4 L 8.5-10.1 mg/dL Total Bilirubin 1.5 H 0.2-1.0 mg/dL Direct Bilirubin 0.4 H 0.0-0.3 mg/dL Aspartate Amino Transf (AST/SGOT) 83 H 10-37 U/L Alanine Aminotransferase (ALT/SGPT) 242 H 12-78 U/L Alkaline Phosphatase 299 H 50-136 U/L Total Protein 6.3 6.0-8.3 g/dL Albumin 2.4 L 3.5-5.0 g/dL Lipase 74 16-77 U/L Whole Blood Glucose 129 H 70-110 MG/DL Magnesium Level 1.80 1.80-2.40 mg/dL Current Medications Medications (Trade) Dose Ordered Sig/[place] Route PRN Reason Start Time Stop Time Status Last Admin Dose Admin Acetaminophen (TYLenol 325MG TAB) 650 mg Q4H PRN PO MILD PAIN (1-3) 06/28/24 09:00 07/28/24 08:59 07/02/24 10:15 650 MG Acetaminophen (TYLenol 325MG TAB) 650 mg Q6H PRN PO TEMPERATURE GREATER THAN 101.5 06/28/24 09:00 06/28/24 08:56 DC Acetaminophen/ Codeine Phosphate (TYLenol-coDEINE TAB) 1 tab Q6H PRN PO MODERATE PAIN (4-6) 06/28/24 09:00 07/28/24 08:59 07/01/24 16:12 1 TAB Acetaminophen/ Codeine Phosphate (TYLenol-coDEINE TAB) 2 tab Q6H PRN PO SEVERE PAIN (7-10) 06/28/24 09:00 06/28/24 14:55 DC 06/28/24 11:26 2 TAB Enoxaparin Sodium (Lovenox) 30 mg DAILY SQ 06/28/24 09:00 07/28/24 08:59 07/02/24 10:07 30 MG Famotidine (Pepcid 20mg Vial) 20 mg BID IV 06/28/24 09:00 07/28/24 08:59 07/02/24 10:07 20 MG Guaifenesin/ Dextromethorphan (RobiTUSSin DM 200/20MG 10ML) 10 ml Q6H PRN PO COUGH 06/30/24 22:00 07/30/24 21:59 07/01/24 22:12 10 ML Hydralazine HCl (APRESOLine 20MG INJ) 10 mg Q6H PRN IV ADMINISTER FOR SBP/DBP>160/110 06/28/24 19:00 07/28/24 18:59 Hydromorphone HCl (DiLAUDid 1MG INJ) 0.5 mg Q4H PRN IV SEVERE PAIN (7-10) 06/28/24 09:00 06/28/24 08:55 DC Hydroxyzine HCl (ATArax 25MG TAB) 25 mg ONCE PO 06/30/24 20:30 06/30/24 23:59 DC 06/30/24 21:10 25 MG Hydroxyzine HCl (ATArax 25MG TAB) 25 mg ONCE PRN PO Anxiety 07/01/24 17:00 Insulin Human Regular (humuLIN R 100 UNIT/ML 3ML) INSULIN SLIDING SCAL... ACHS SQ 07/01/24 21:00 07/28/24 11:59 Insulin Human Regular (humuLIN R 100 UNIT/ML 3ML) INSULIN SLIDING SCAL... Q6H6 SQ 06/28/24 12:00 07/01/24 19:13 DC Lisinopril (Prinivil 2.5mg) 2.5 mg DAILY PO 07/02/24 09:00 08/01/24 08:59 07/02/24 10:07 2.5 MG Lorazepam (AtiVAN) 0.25 mg ONCE PRN PO As needed for anxiety 06/30/24 22:00 06/30/24 23:59 DC Magnesium Sulfate 50 ml @ 0 mls/hr PROTOCOL PRN IV MAGNESIUM PROTOCOL 06/28/24 09:00 07/28/24 08:59 07/01/24 05:37 25 MLS/HR Morphine Sulfate (morPHINE 2MG SYG) 2 mg Q4H PRN IV MODERATE PAIN (4-6) 06/28/24 09:00 06/28/24 08:55 DC Morphine Sulfate (morPHINE 2MG SYG) 2 mg Q4H PRN IVP SEVERE PAIN (7-10) 06/28/24 15:00 07/05/24 14:59 06/30/24 21:17 2 MG Ondansetron HCl (zoFRAN 4MG INJ) 4 mg Q6H PRN IV NAUSEA/VOMITING 06/28/24 09:00 07/28/24 08:59 Piperacillin Sod/ Tazobactam Sod 50 ml @ 12.5 mls/hr ZOSY8 IV 06/28/24 13:00 07/02/24 09:34 DC 07/02/24 06:00 12.5 MLS/HR Potassium Chloride 100 ml @ 100 mls/hr AD PRN IV POTASSIUM PROTOCOL 06/28/24 09:00 07/28/24 08:59 07/01/24 18:38 100 MLS/HR Potassium Chloride (K-Dur 10meq Sr Tab) 10 meq AD PRN PO POTASSIUM PROTOCOL 06/28/24 15:00 07/28/24 08:59 07/02/24 10:05 10 MEQ Potassium Chloride (K-Dur/Klor-Con 20meq) 10 meq AD PRN PO POTASSIUM PROTOCOL 06/28/24 09:00 06/28/24 14:54 DC Potassium Chloride (KCl 10% Elixir 20meq/15ml) 10 meq AD PRN PO POTASSIUM PROTOCOL 06/28/24 09:00 07/28/24 08:59 07/01/24 16:11 10 MEQ Sodium Chloride 500 ml @ 0 mls/hr Q0M IV 06/29/24 16:30 07/29/24 16:29 06/29/24 16:30 999 MLS/HR Sodium Chloride 1,000 ml @ 125 mls/hr Q8H IV 06/28/24 09:00 07/28/24 08:59 07/02/24 10:08 125 MLS/HR DIAGNOSTICS / RADIOLOGY: [place] [address] IMAGING REPORT Signed PATIENT: JOHNATHAN MAHONEY MR#: [id number] : 1975 SEX: F AGE: 49 LOCATION: [facility] ORDER 0809 STATUS: ADM IN REPORT#: [id number] SERVICE 0807 REASON: CHOLELITHIASIS ORDERING PHYSICIAN: SHAMIKA MENDOZA MD PROCEDURE: MRCP WO - MRCP(ABDWO)CHOLANGIOPANCREATOG Exam Type: MRI OF THE ABDOMEN WITHOUT CONTRAST and MR cholangiopancreatography Comparison Study: none History: CHOLELITHIASIS PROTOCOL: Examination is done with multiecho multiplanar sequences. ASSET with multiplanar 3-D reconstructions MR cholangiopancreatography sequences are also available for review. MRCP performed customary fashion. 2D axial FIESTA fat-saturated images of abdomen, coronal thick slab MRCP ASSET scan and coronal thin slab MRCP ASSET 3 mm images and maximum intensity projection postprocessing, MIP projected in the customary circumferential and head over heels fashion. FINDINGS: No evidence of nephro or ureterolithiasis is found. No hydronephrosis or ureteral dilatation is seen. The stomach is unremarkable. There is no evidence of gastric dilatation. No blastic thickening is noted to suggest inflammation or tumor. There is no perforation. There is no gastric outlet obstruction. There is no ulceration. The spleen is unremarkable. It is not enlarged. The pancreas shows normal anatomy. It is not fatty replaced. It shows no lesions. The pancreatic duct is not dilated. There is cholelithiasis. No evidence of acute inflammation of the gallbladder is seen by MRI. The adrenal glands are unremarkable. There is no enlargement. No lesions are noted. The liver is unremarkable. It shows no focal masses. The visualized segments of large and small bowel appear unremarkable. The bony and vascular structures are unremarkable for the patient's age. MRCP is likewise unremarkable. The common bile duct is well as the intrahepatic bile ducts are well seen without filling defects to suggest calculi. There are no areas of dilatation or abrupt cutoffs. There is mild ascites. IMPRESSION: CHOLELITHIASIS. Mild ascites. Otherwise normal MRCP. DICTATED BY: BRIANNA LANDA MD DATE: 06/29/24937 ELECTRONICALLY SIGNED BY: BRIANNA LANDA MD DATE: 06/29/24943 [place] [address] IMAGING REPORT Signed PATIENT: JOHNATHAN MAHONEY MR#: [id number] : 1975 SEX: F AGE: 49 LOCATION: [facility] ORDER 6 STATUS: REG ER REPORT#: [id number] SERVICE 5 REASON: ruq pain ORDERING PHYSICIAN: DIAMOND CARVAJAL MD PROCEDURE: ABD PEL WO - CT ABDOMEN/PELVIS W/O CONTRAST Exam Type: CT ABDOMEN/PELVIS W/O CONTRAST Clinical Information: ruq pain Comparison: None CT Dose Index (CTDI): 10.20 mGy Dose Length Product (DLP): 530.00 total mGy-cm PROTOCOL: Routine noncontrast helical scanning of the abdomen and pelvis was performed at 5mm collimation. Findings: No evidence of nephro or ureterolithiasis is found. No hydronephrosis or ureteral dilatation is seen. The lung bases are clear. The stomach is unremarkable. It shows no wall thickening. No gross ulceration is seen. It is not overly distended. There are no surrounding inflammatory changes. No wall lesions are identified to suggest cancer. The spleen is unremarkable. It is not enlarged. Inflammation of the pancreas is seen consistent with acute pancreatitis. No fluid collections noted. The gallbladder is unremarkable. It shows no cholelithiasis. The gallbladder wall is normal in thickness. There is no pericholecystic fluid. The is no acute or chronic inflammation noted. The adrenal glands are unremarkable. There is no enlargement. No lesions are noted. The liver is unremarkable. It shows no focal masses. The appendix is unremarkable. It shows no evidence of inflammation. No appendicolith is seen. The small bowel is unremarkable. There is no evidence of dilatation to suggest obstruction. No evidence of adynamic ileus is seen. There is no small bowel wall thickening to suggest enteritis. The colon is unremarkable. The urinary bladder is unremarkable. There is no wall thickening to suggest tumor or inflammation. There are no intraluminal calculi. There are no diverticula. There is no evidence of chronic bladder outlet obstruction. There is no evidence of urinary bladder distention to suggest urinary retention. The other pelvic structures are unremarkable. The bony and vascular structures are unremarkable for the patient's age. IMPRESSION: Acute pancreatitis. Preliminary report with this information was sent by the on-call radiologist to ordering physicians time of exam. This study was performed using dose reduction techniques to include automated exposure control and/or adjustment of the mA and/or kV according to patient size. DICTATED BY: BRIANNA LANDA MD DATE: 06/28/24806 ELECTRONICALLY SIGNED BY: BRIANNA LANDA MD DATE: 06/28/24810 [place] [id number] [address] IMAGING REPORT Signed PATIENT: JOHNATHAN MAHONEY MR#: [id number] : 1975 SEX: F AGE: 49 LOCATION: [facility] ORDER 0427 STATUS: [facility] REPORT#: [id number] SERVICE 0426 REASON: ruq pain ORDERING PHYSICIAN: DIAMOND CARVAJAL MD PROCEDURE: ABDRUQLTD - US ABDOMINAL RUQ\LTD Exam Type: US ABDOMINAL RUQ\E\LTD Clinical Information: ruq pain Comparison: None Findings: The liver shows increased echogenicity consistent with fatty liver infiltration and is enlarged. The liver measures 16.3 cm in length. Doppler evaluation shows patent portal and hepatic veins. The gallbladder shows cholelithiasis. No acute or chronic inflammatory changes are seen. The gallbladder wall thickness is 2 mm. No bile duct dilatation is noted. The common bile duct measures 5 mm. The right kidney is not visualized. The pancreas is within normal limits. IMPRESSION: Cholelithiasis. DICTATED BY: BRIANNA LANDA MD DATE: 06/28/24826 ELECTRONICALLY SIGNED BY: BRIANNA LANDA MD DATE: 06/28/24830 ASSESSMENT: Acute pancreatitis with severe elevation of lipase and biliary involvement, improving POA Transaminitis POA Hypokalemia POA Hyperglycemia POA PLAN: Acute pancreatitis with severe elevation of lipase and biliary involvement, imp roving POA Transaminitis, improving POA * Continue 0.9% Nacl 125 cc/hour daily. * Continue Zofran 4 mg IV every 6 hours when necessary for nausea and vomiting * Discontinued Zosyn * GI soft diet will be started today, the patient tolerated during the breakfast. Reevaluate tomorrow * Continue morphine 2 mg IV every 4 hours for pain. * General surgery was consulted to provide recommendations with if the patient requires cholecystectomy. Recommendations are pending. * Replace electrolyte with protocol as needed. * Continue on insulin sliding scale * AM Labs: CBC, CMP Further recommendations will be based on clinical improvement, labs and general surgery consult tomorrow. ATTESTATION BY PHYSICIAN I have seen and examined the patient. I reviewed the documentation, medical decision making, and treatment plan as noted by the resident provider above. I agree with the findings and plan of care. Dulce Luo MD, MANALI MD Jul 02, 2024 11:19
[2024-07-02] MEDS: hydrOXYzine 25 MG TABLET PO PRN (17:39)
--- NOTE | 2024-07-02 18:09 | CONS ---
GENERAL SURGERY CONSULTATION NOTE Date/Time Patient Seen: 07/02/2024 5:00 p.m. Requesting Physician: Hospitalist Reason for Consultation: Gallstone pancreatitis History of Present Illness: This is a 49-year-old female that presented to the emergency department for several days of epigastric abdominal pain and nausea. [place] [id number] scan findings consistent with pancreatic inflammation. She was admitted to the hospitalist service for acute pancreatitis. Imaging also indicated the patient has gallstones. Patient has been treated with bowel rest and IV fluids. Her pain has resolved and her lipase is within normal limits. Surgery was consulted for cholecystectomy. Patient currently reporting that she had some pain after her sandwich that she just ate. Otherwise she was pain-free this morning. Past Medical History: None Past Surgical History: Family History: None Social History: Nonsmoker Nondrinker Current Medications Medications (Trade) Dose Ordered Sig/[place] Route Start Time Stop Time Status Last Admin Dose Admin Enoxaparin Sodium (Lovenox) 30 mg DAILY SQ 06/28/24 09:00 07/28/24 08:59 07/02/24 10:07 30 MG Famotidine (Pepcid 20mg Vial) 20 mg BID IV 06/28/24 09:00 07/28/24 08:59 07/02/24 10:07 20 MG Hydroxyzine HCl (ATArax 25MG TAB) 25 mg ONCE PO 06/30/24 20:30 06/30/24 23:59 DC 06/30/24 21:10 25 MG Insulin Human Regular (humuLIN R 100 UNIT/ML 3ML) INSULIN SLIDING SCAL... ACHS SQ 07/01/24 21:00 07/28/24 11:59 Insulin Human Regular (humuLIN R 100 UNIT/ML 3ML) INSULIN SLIDING SCAL... Q6H6 SQ 06/28/24 12:00 07/01/24 19:13 DC Lisinopril (Prinivil 2.5mg) 2.5 mg DAILY PO 07/02/24 09:00 08/01/24 08:59 07/02/24 10:07 2.5 MG Piperacillin Sod/ Tazobactam Sod 50 ml @ 12.5 mls/hr ZOSY8 IV 06/28/24 13:00 07/02/24 09:34 DC 07/02/24 06:00 12.5 MLS/HR Sodium Chloride 500 ml @ 0 mls/hr Q0M IV 06/29/24 16:30 07/29/24 16:29 06/29/24 16:30 999 MLS/HR Sodium Chloride 1,000 ml @ 125 mls/hr Q8H IV 06/28/24 09:00 07/28/24 08:59 07/02/24 10:08 125 MLS/HR Review of Systems: CONST: No fever, fatigue, or weight changes. EYES: No recent vision problems. ENT: No congestion, ear pain, or sore throat. C/V: No chest pain, palpitations, or edema. RESP: No cough, congestion, wheezing or shortness of breath. GI: No abdominal pain, nausea, vomiting, constipation, or diarrhea. : No incontinence or dysuria. SKIN: No rash. NEURO: No headache, focal numbness or weakness, dizziness, or seizures. PSYCH: No depression or anxiety. HEME: No abnormal bruising or bleeding. LYMPH: No swollen glands. Physical Examination: GENERAL: No acute distress. HEAD: Normal with no signs of head trauma. LUNGS: Respirations nonlabored HEART: Regular rate and rhythm ABD: Soft, nondistended, mildly tender to palpation in the epigastrium and right upper quadrant, no rebound, no guarding : Not examined EXT: No clubbing, cyanosis or edema. SKIN: No rashes or lesions noted. NEURO: Awake, alert, and oriented x3. No focal sensory or strength deficits noted. Vital Signs (last 8hr) Date Time Temp Pulse Resp B/P (MAP) Pulse Ox O2 Delivery O2 Flow Rate FiO2 07/02/24 16:35 98.1 86 18 154/91 97 Room Air 07/02/24 11:28 99.0 91 18 104/72 96 Room Air Laboratory: Hematology Labs: Test 07/02/24 05:56 Range/Units White Blood Count 8.8 4.8-10.8 K/uL Red Blood Count 4.24 4.00-5.50 MIL/uL Hemoglobin 12.0 12.0-16.0 g/dL Hematocrit 35.4 L 36-48 % Mean Corpuscular Volume 83.5 79-99 fL Mean Corpuscular Hemoglobin 28.3 27.0-33.0 pg Mean Corpuscular Hemoglobin Concent 33.9 32.0-36.0 g/dL Red Cell Distribution Width 14.1 11.0-15.5 % Platelet Count 267 130-400 K/uL Mean Platelet Volume 10.0 7.5-10.5 fL Immature Granulocyte % (Auto) 0.3 0-1 % Neutrophils (%) (Auto) 78.0 H 40.0-77.0 % Lymphocytes (%) (Auto) 9.7 L 21.0-51.0 % Monocytes (%) (Auto) 7.0 3.0-13.0 % Eosinophils (%) (Auto) 4.7 0.0-8.0 % Basophils (%) (Auto) 0.3 0.0-5.0 % Neutrophils # (Auto) 6.8 1.8-7.7 K/uL Lymphocytes # (Auto) 0.9 L 1.0-4.8 K/uL Monocytes # (Auto) 0.6 0.1-1.0 K/uL Eosinophils # (Auto) 0.41 0.00-0.70 K/uL Basophils # (Auto) 0.03 0.00-0.20 K/uL Absolute Immature Granulocyte (auto 0.03 0-1 K/uL Nucleated Red Blood Cells 0.0 0.0-0.19 % Chemistry Labs: Test 07/02/24 15:31 07/02/24 05:56 07/01/24 04:22 Range/Units Whole Blood Glucose 109 70-110 MG/DL Sodium Level 143 136-145 mmol/L Potassium Level 3.1 L 3.5-5.1 mmol/L Chloride Level 106 101-111 mmol/L Carbon Dioxide Level 30 21-32 mmol/L Blood Urea Nitrogen 2 L 7-18 mg/dL Creatinine 0.6 0.5-1.0 mg/dL Glomerular Filtration Rate Calc 111 >90 mL/min Random Glucose 116 H 70-105 mg/dL Total Calcium 8.4 L 8.5-10.1 mg/dL Total Bilirubin 1.5 H 0.2-1.0 mg/dL Direct Bilirubin 0.4 H 0.0-0.3 mg/dL Aspartate Amino Transf (AST/SGOT) 83 H 10-37 U/L Alanine Aminotransferase (ALT/SGPT) 242 H 12-78 U/L Alkaline Phosphatase 299 H 50-136 U/L Total Protein 6.3 6.0-8.3 g/dL Albumin 2.4 L 3.5-5.0 g/dL Lipase 74 16-77 U/L Magnesium Level 1.80 1.80-2.40 mg/dL Diagnostics / Radiology: PATIENT: JOHNATHAN MAHONEY MR#: [id number] : 1975 SEX: F AGE: 49 LOCATION: [facility] ORDER 0 STATUS: REG ER REPORT#: [id number] SERVICE 9 REASON: cp ORDERING PHYSICIAN: DIAMOND CARVAJAL MD PROCEDURE: CXR1VW - CHEST 1VW Exam Type: CHEST 1VW Clinical Information: cp Comparison: None Findings: The lungs are clear of infiltrates. The heart is normal in size. The bony and soft tissue structures of the chest are unremarkable. Impression: Clear lungs. DICTATED BY: BRIANNA LANDA MD DATE: 06/28/24830 ELECTRONICALLY SIGNED BY: BRIANNA LANDA MD DATE: 06/28/24842 PATIENT: JOHNATHAN MAHONEY MR#: [id number] : 1975 SEX: F AGE: 49 LOCATION: [facility] ORDER 6 STATUS: REG ER HOSPITAL REPORT#: [id number] SERVICE 5 REASON: ruq pain ORDERING PHYSICIAN: DIAMOND CARVAJAL MD PROCEDURE: ABDRUQLTD - US ABDOMINAL RUQ\LTD Exam Type: US ABDOMINAL RUQ\E\LTD Clinical Information: ruq pain Comparison: None Findings: The liver shows increased echogenicity consistent with fatty liver infiltration and is enlarged. The liver measures 16.3 cm in length. Doppler evaluation shows patent portal and hepatic veins. The gallbladder shows cholelithiasis. No acute or chronic inflammatory changes are seen. The gallbladder wall thickness is 2 mm. No bile duct dilatation is noted. The common bile duct measures 5 mm. The right kidney is not visualized. The pancreas is within normal limits. IMPRESSION: Cholelithiasis. DICTATED BY: BRIANNA LANDA MD DATE: 06/28/24826 ELECTRONICALLY SIGNED BY: BRIANNA LANDA MD DATE: 06/28/24830 PATIENT: JOHNATHAN MAHONEY MR#: [id number] : 1975 SEX: F AGE: 49 LOCATION: [facility] ORDER 6 STATUS: REG ER REPORT#: [id number] SERVICE 5 REASON: ruq pain ORDERING PHYSICIAN: DIAMOND CARVAJAL MD PROCEDURE: ABD PEL WO - CT ABDOMEN/PELVIS W/O CONTRAST Exam Type: CT ABDOMEN/PELVIS W/O CONTRAST Clinical Information: ruq pain Comparison: None CT Dose Index (CTDI): 10.20 mGy Dose Length Product (DLP): 530.00 total mGy-cm PROTOCOL: Routine noncontrast helical scanning of the abdomen and pelvis was performed at 5mm collimation. Findings: No evidence of nephro or ureterolithiasis is found. No hydronephrosis or ureteral dilatation is seen. The lung bases are clear. The stomach is unremarkable. It shows no wall thickening. No gross ulceration is seen. It is not overly distended. There are no surrounding inflammatory changes. No wall lesions are identified to suggest cancer. The spleen is unremarkable. It is not enlarged. Inflammation of the pancreas is seen consistent with acute pancreatitis. No fluid collections noted. The gallbladder is unremarkable. It shows no cholelithiasis. The gallbladder wall is normal in thickness. There is no pericholecystic fluid. The is no acute or chronic inflammation noted. The adrenal glands are unremarkable. There is no enlargement. No lesions are noted. The liver is unremarkable. It shows no focal masses. The appendix is unremarkable. It shows no evidence of inflammation. No appendicolith is seen. The small bowel is unremarkable. There is no evidence of dilatation to suggest obstruction. No evidence of adynamic ileus is seen. There is no small bowel wall thickening to suggest enteritis. The colon is unremarkable. The urinary bladder is unremarkable. There is no wall thickening to suggest tumor or inflammation. There are no intraluminal calculi. There are no diverticula. There is no evidence of chronic bladder outlet obstruction. There is no evidence of urinary bladder distention to suggest urinary retention. The other pelvic structures are unremarkable. The bony and vascular structures are unremarkable for the patient's age. IMPRESSION: Acute pancreatitis. Preliminary report with this information was sent by the on-call radiologist to ordering physicians time of exam. This study was performed using dose reduction techniques to include automated exposure control and/or adjustment of the mA and/or kV according to patient size. DICTATED BY: BRIANNA LANDA MD DATE: 06/28/24806 ELECTRONICALLY SIGNED BY: BRIANNA LANDA MD DATE: 06/28/24810 PATIENT: JOHNATHAN MAHONEY MR#: [id number] : 1975 SEX: F AGE: 49 LOCATION: [facility] ORDER 8 STATUS: ADM IN REPORT#: [id number] SERVICE 6 REASON: CHOLELITHIASIS ORDERING PHYSICIAN: SHAMIKA MENDOZA MD PROCEDURE: MRCP WO - MRCP(ABDWO)CHOLANGIOPANCREATOG Exam Type: MRI OF THE ABDOMEN WITHOUT CONTRAST and MR cholangiopancreatography Comparison Study: none History: CHOLELITHIASIS PROTOCOL: Examination is done with multiecho multiplanar sequences. ASSET with multiplanar 3-D reconstructions MR cholangiopancreatography sequences are also available for review. MRCP performed customary fashion. 2D axial FIESTA fat-saturated images of abdomen, coronal thick slab MRCP ASSET scan and coronal thin slab MRCP ASSET 3 mm images and maximum intensity projection postprocessing, MIP projected in the customary circumferential and head over heels fashion. FINDINGS: No evidence of nephro or ureterolithiasis is found. No hydronephrosis or ureteral dilatation is seen. The stomach is unremarkable. There is no evidence of gastric dilatation. No blastic thickening is noted to suggest inflammation or tumor. There is no perforation. There is no gastric outlet obstruction. There is no ulceration. The spleen is unremarkable. It is not enlarged. The pancreas shows normal anatomy. It is not fatty replaced. It shows no lesions. The pancreatic duct is not dilated. There is cholelithiasis. No evidence of acute inflammation of the gallbladder is seen by MRI. The adrenal glands are unremarkable. There is no enlargement. No lesions are noted. The liver is unremarkable. It shows no focal masses. The visualized segments of large and small bowel appear unremarkable. The bony and vascular structures are unremarkable for the patient's age. MRCP is likewise unremarkable. The common bile duct is well as the intrahepatic bile ducts are well seen without filling defects to suggest calculi. There are no areas of dilatation or abrupt cutoffs. There is mild ascites. IMPRESSION: CHOLELITHIASIS. Mild ascites. Otherwise normal MRCP. DICTATED BY: BRIANNA LANDA MD DATE: 06/29/24937 ELECTRONICALLY SIGNED BY: BRIANNA LANDA MD DATE: 06/29/24943 Assessment: This is a 49-year-old female with gallstone pancreatitis which appears to be resolving. Plan: MRCP is negative for choledocholithiasis. NPO at midnight. Patient will benefit from cholecystectomy on this admission. I will discuss the case with Dr. Miller to find out when the patient can be scheduled for surgery. MICHAEL BROWN DO Jul 02, 2024 18:09
[2024-07-03] VITALS (24 sets, daily range): BP systolic 110–174; BP diastolic 51–102; PULSE 75–102; RESP 16–30; TEMP 97–99.5; O2SAT 92
[2024-07-03 04:29] LABS: BASOPHILS # (AUTO) 0.03 K/uL (0.00-0.20); BASOPHILS % (AUTO) 0.3 % (0.0-5.0); EOSINOPHILS # (AUTO) 0.35 K/uL (0.00-0.70); HEMATOCRIT 36.1 % (36-48); IMMATURE GRANULOCYTE ABSOLUTE 0.09 K/uL (0-1); LYMPHOCYTES # (AUTO) 1.1 K/uL (1.0-4.8); LYMPHOCYTES % (AUTO) 12.5 % (21.0-51.0); MEAN CORPUSCULAR HEMOGLOBIN 28.3 pg (27.0-33.0); MEAN CORPUSCULAR HGB CONC 33.8 g/dL (32.0-36.0); MEAN CORPUSCULAR VOLUME 83.8 fL (79-99); MONOCYTES # (AUTO) 0.7 K/uL (0.1-1.0); MONOCYTES % (AUTO) 7.9 % (3.0-13.0); NEUTROPHILS # (AUTO) 6.4 K/uL (1.8-7.7); NEUTROPHILS % (AUTO) 74.3 % (40.0-77.0); PLATELET COUNT (AUTO) 303 K/uL (130-400); RED BLOOD CELL COUNT(AUTO) 4.31 MIL/uL (4.00-5.50); RED CELL DISTRIBUTION WIDTH 13.9 % (11.0-15.5); WHITE BLOOD COUNT (AUTO) 8.7 K/uL (4.8-10.8)
[2024-07-03 04:44] LABS: ALBUMIN 2.3 g/dL (3.5-5.0); CREATININE 0.7 mg/dL (0.5-1.0); POTASSIUM 3.2 mmol/L (3.5-5.1); TOTAL PROTEIN, SERUM 6.2 g/dL (6.0-8.3)
--- NOTE | 2024-07-03 09:01 | NUR ---
LOVENOX HELD DUE TO PATIENT BEING SCHEDULED FOR CHOLECYSTECTOMY TODAY.
--- NOTE | 2024-07-03 09:11 | PN ---
[facility] PROGRESS NOTE Date of Service: Jul 03, 2024 Time of Service: 09:11 SUBJECTIVE: The patient is a 49-year-old female with a no significant past medical history presented to ED on 06/28 with the chief complaints of mild epigastric abdominal pain radiating to back and bilateral flanks of 12 hours associated with the episodes of nausea and vomiting. She reported no history of similar episodes before. On presentation she was afebrile, blood pressure was 188/90. Labs showed a WBC of 11.4 with neutrophilia, potassium 2.8, total bilirubin 2.0, AST 573, ALT 446, alkaline phosphatase 222, triglycerides 88, lipase [id number]. Abdominal ultrasound showed cholelithiasis. Abdomen and pelvis CT showed acute pancreatitis. The patient received analgesics, Zofran, Protonix, 0.9% Na Cl bolus, Zosyn and was admitted for the management of acute pancreatitis. 06/30- The patient was examined today at bedside, lying comfortably. Epigastric pain has improved as compared to presentation and now it is 4/10 still radiating to bilateral flanks. She has been NPO, remains afebrile, has been tachycardic with pulse rates around 110, SBP in 130s in 150s. She is saying she is nervous about her condition. She is complaining of headaches possibly because of NPO and requesting if she can eat. Additionally she is saying that she can not take deep breath without discomfort, and is having pain with deep breathing. Labs: WBC dropped to 9.7 From 12, potassium 2.9, bilirubin dropped to 1.7 from 2.8, AST and ALT are trending down to 48 and 209 from 131 and 393 respectively. Alkaline phosphatase dropped to 149 from 204, lipase dropped to 355 from 1901 yesterday. GI was consulted, and per Dr. Germain, the patient does not require any surgical intervention at this point. We will monitor symptoms and repeat labs in a.m. 07/01- The patient was examined at bedside. Running slightly hypertensive with systolic blood pressure in 140s. She had an episode of a abdominal pain radiating to bilateral flank last night and subsided after morphine. At present the pain is 3/10, cramping in type, is improving. She tolerated clear liquid diet yesterday. Labs: Potassium went up to 3.0 from 2.9, total bilirubin 1.9, AST went up to 91 from 48 , ALT went up to 213 from 209, alkaline phosphatase went up to 313 from 149, lipase went down to 117 from 355. Per GI, no surgical intervention has planned. We will advance diet to GI soft tonight and reevaluate tomorrow. We will also consult general surgery if the patient requires cholecystectomy during this admission. 07/02/24- The patient was examined at bedside today. Running hypertensive with SBP in 140s. She was started with a GI soft diet today in the morning, is saying that her stomach did hurt little bit but she tolerated it well. She had a bowel movement today in the morning, urinating well, denies any burning in the micturition. She still has a mild abdominal pain 4/10 and midepigastric region. Labs: Potassium went up to 3.1 From 3.0, AST went down to 83 from 91, ALT went up to 242 from 213, lipase went down to 74 from 117. We are waiting for general surgery consult today for possible cholecystectomy during this admission. 07/03/2024- The patient was examined at bedside today. She is lying comfortably, abdominal pain has improved and now is 2/10, dull type and midepigastric region. The patient is scheduled for robotic cholecystectomy today. Labs: Potassium went up to 3.2 From 2.9, lipase 74, AST went down to 30 from 83, ALT to 160 from 242, alkaline phosphatase to 242 from 249. The patient is pending robotic cholecystectomy today. We will follow up the patient post surgery. REVIEW OF SYSTEMS CONSTITUTIONAL: Denies fevers, chills, or night sweats. No unintentional weight loss reported. NEUROLOGICAL: Denies headache, amaurosis fugax, motor weakness, sensory deficit, vertigo/spinning sensation, gait abnormalities, or tremors. ENT: No hearing loss, otalgia, otorrhea, rhinitis, rhinorrhea, hoarseness, or sore throat. CARDIOVASCULAR: Denies any exertional angina, dyspnea on exertion, orthopnea, paroxysmal nocturnal dyspnea, palpitations, life-threatening arrhythmias, claudication. PULMONARY: Denies any shortness of breath, cough, phlegm/sputum, hemoptysis, pleuritic chest pain. SLEEP: Denies morning headaches, daytime somnolence or napping. Denies difficulty falling asleep, staying asleep, waking from sleep. Denies knowledge of snoring. GASTROINTESTINAL: Midepigastric abdominal pain 3/10, radiating to bilateral flanks. Denies any type of dysphagia to either liquids or solids. Denies nausea, vomiting, pyrosis, early satiety,diarrhea, constipation, or changes in stool consistency or caliber. Denies coffee-ground emesis, hematemesis, h ematochezia, or melanotic stools. GENITOURINARY: Denies frequency, urgency, nocturia, hematuria or incontinence (Storage/Irritative symptoms.) Low urinary stream, straining to void, urinary intermittency or hesitancy, splitting of the voiding stream, terminal dribbling. ENDOCRINOLOGIC: Denies polyuria, polydipsia, polyphagia or heat/cold intolerances. HEMATOLOGIC: Denies thrombophilia/previous clots, or coagulopathy/bleeding disorders. ONCOLOGIC: Denies personal history of malignancy. DERMATOLOGIC: Denies rashes or pruritus. PSYCHIATRIC: Denies any suicidal or homicidal ideation. Denies hallucinations. PHYSICAL EXAM GENERAL APPEARANCE: The patient is awake, alert, and oriented, in no acute cardiopulmonary distress, obese. NEUROLOGICAL: Cranial nerves II-XII grossly intact. Motor is 5/5 in bilateral upper and lower extremities proximal to distal. No sensory deficits. HEENT: Face is symmetric. Pupils are equal and reactive. Extraocular movements are intact. NECK: Supple. No JVD. No thyromegaly. No submental, submandibular, pre- /postauricular, occipital or supraclavicular lymphadenopathy. CHEST: Normal chest expansion. No Telemetry. LUNGS: Absence of any rales, rhonchi or any wheezing. CARDIOVASCULAR: Regular. S1 and S2 normal. No appreciable rubs, murmurs or gallops. ABDOMEN: Midepigastric abdominal pain 3/10, radiating to bilateral flanks. Soft, positive bowel sounds, nondistended, no guarding, no rebound, no masses no hepat omegaly, no splenomegaly, no Gil's sign, no hernias : Deferred. No Narvaez. EXTREMITIES: Non-edematous and not cyanotic. No clubbing. Good capillary refill. SKIN: No skin breakdown. Vital Signs (last 8hr) Date Time Temp Pulse Resp B/P (MAP) Pulse Ox O2 Delivery O2 Flow Rate FiO2 07/03/24 08:00 98.4 92 18 130/82 92 Room Air 07/03/24 04:00 97.5 88 20 148/94 95 Room Air LABS: Laboratory: Test 07/03/24 05:09 07/03/24 04:24 07/02/24 05:56 Range/Units Whole Blood Glucose 116 H 70-110 MG/DL White Blood Count 8.7 4.8-10.8 K/uL Red Blood Count 4.31 4.00-5.50 MIL/uL Hemoglobin 12.2 12.0-16.0 g/dL Hematocrit 36.1 36-48 % Mean Corpuscular Volume 83.8 79-99 fL Mean Corpuscular Hemoglobin 28.3 27.0-33.0 pg Mean Corpuscular Hemoglobin Concent 33.8 32.0-36.0 g/dL Red Cell Distribution Width 13.9 11.0-15.5 % Platelet Count 303 130-400 K/uL Mean Platelet Volume 9.9 7.5-10.5 fL Immature Granulocyte % (Auto) 1.0 0-1 % Neutrophils (%) (Auto) 74.3 40.0-77.0 % Lymphocytes (%) (Auto) 12.5 L 21.0-51.0 % Monocytes (%) (Auto) 7.9 3.0-13.0 % Eosinophils (%) (Auto) 4.0 0.0-8.0 % Basophils (%) (Auto) 0.3 0.0-5.0 % Neutrophils # (Auto) 6.4 1.8-7.7 K/uL Lymphocytes # (Auto) 1.1 1.0-4.8 K/uL Monocytes # (Auto) 0.7 0.1-1.0 K/uL Eosinophils # (Auto) 0.35 0.00-0.70 K/uL Basophils # (Auto) 0.03 0.00-0.20 K/uL Absolute Immature Granulocyte (auto 0.09 0-1 K/uL Nucleated Red Blood Cells 0.0 0.0-0.19 % Sodium Level 145 136-145 mmol/L Potassium Level 3.2 L 3.5-5.1 mmol/L Chloride Level 105 101-111 mmol/L Carbon Dioxide Level 29 21-32 mmol/L Blood Urea Nitrogen 6 L 7-18 mg/dL Creatinine 0.7 0.5-1.0 mg/dL Glomerular Filtration Rate Calc 107 >90 mL/min Random Glucose 117 H 70-105 mg/dL Total Calcium 8.6 8.5-10.1 mg/dL Total Bilirubin 1.0 # 0.2-1.0 mg/dL Aspartate Amino Transf (AST/SGOT) 30 10-37 U/L Alanine Aminotransferase (ALT/SGPT) 160 #H 12-78 U/L Alkaline Phosphatase 242 H 50-136 U/L Total Protein 6.2 6.0-8.3 g/dL Albumin 2.3 L 3.5-5.0 g/dL Direct Bilirubin 0.4 H 0.0-0.3 mg/dL Lipase 74 16-77 U/L Current Medications Medications (Trade) Dose Ordered Sig/[place] Route PRN Reason Start Time Stop Time Status Last Admin Dose Admin Acetaminophen (TYLenol 325MG TAB) 650 mg Q4H PRN PO MILD PAIN (1-3) 06/28/24 09:00 07/28/24 08:59 07/02/24 10:15 650 MG Acetaminophen (TYLenol 325MG TAB) 650 mg Q6H PRN PO TEMPERATURE GREATER THAN 101.5 06/28/24 09:00 06/28/24 08:56 DC Acetaminophen/ Codeine Phosphate (TYLenol-coDEINE TAB) 1 tab Q6H PRN PO MODERATE PAIN (4-6) 06/28/24 09:00 07/28/24 08:59 07/02/24 23:53 1 TAB Acetaminophen/ Codeine Phosphate (TYLenol-coDEINE TAB) 2 tab Q6H PRN PO SEVERE PAIN (7-10) 06/28/24 09:00 06/28/24 14:55 DC 06/28/24 11:26 2 TAB Enoxaparin Sodium (Lovenox) 30 mg DAILY SQ 06/28/24 09:00 07/28/24 08:59 07/02/24 10:07 30 MG Famotidine (Pepcid 20mg Vial) 20 mg BID IV 06/28/24 09:00 07/28/24 08:59 07/03/24 09:00 20 MG Guaifenesin/ Dextromethorphan (RobiTUSSin DM 200/20MG 10ML) 10 ml Q6H PRN PO COUGH 06/30/24 22:00 07/30/24 21:59 07/02/24 22:11 10 ML Hydralazine HCl (APRESOLine 20MG INJ) 10 mg Q6H PRN IV ADMINISTER FOR SBP/DBP>160/110 06/28/24 19:00 07/28/24 18:59 Hydromorphone HCl (DiLAUDid 1MG INJ) 0.5 mg Q4H PRN IV SEVERE PAIN (7-10) 06/28/24 09:00 06/28/24 08:55 DC Hydroxyzine HCl (ATArax 25MG TAB) 25 mg ONCE PO 06/30/24 20:30 06/30/24 23:59 DC 06/30/24 21:10 25 MG Hydroxyzine HCl (ATArax 25MG TAB) 25 mg ONCE PRN PO Anxiety 07/01/24 17:00 07/02/24 17:40 DC 07/02/24 17:39 25 MG Insulin Human Regular (humuLIN R 100 UNIT/ML 3ML) INSULIN SLIDING SCAL... ACHS SQ 07/01/24 21:00 07/28/24 11:59 Insulin Human Regular (humuLIN R 100 UNIT/ML 3ML) INSULIN SLIDING SCAL... Q6H6 SQ 06/28/24 12:00 07/01/24 19:13 DC Lisinopril (Prinivil 2.5mg) 2.5 mg DAILY PO 07/02/24 09:00 08/01/24 08:59 07/03/24 09:00 2.5 MG Lorazepam (AtiVAN) 0.25 mg ONCE PRN PO As needed for anxiety 06/30/24 22:00 06/30/24 23:59 DC Magnesium Sulfate 50 ml @ 0 mls/hr PROTOCOL PRN IV MAGNESIUM PROTOCOL 06/28/24 09:00 07/28/24 08:59 07/01/24 05:37 25 MLS/HR Morphine Sulfate (morPHINE 2MG SYG) 2 mg Q4H PRN IV MODERATE PAIN (4-6) 06/28/24 09:00 06/28/24 08:55 DC Morphine Sulfate (morPHINE 2MG SYG) 2 mg Q4H PRN IVP SEVERE PAIN (7-10) 06/28/24 15:00 07/05/24 14:59 07/02/24 17:40 2 MG Ondansetron HCl (zoFRAN 4MG INJ) 4 mg Q6H PRN IV NAUSEA/VOMITING 06/28/24 09:00 07/28/24 08:59 Piperacillin Sod/ Tazobactam Sod 50 ml @ 12.5 mls/hr ZOSY8 IV 06/28/24 13:00 07/02/24 09:34 DC 07/02/24 06:00 12.5 MLS/HR Potassium Chloride 100 ml @ 100 mls/hr AD PRN IV POTASSIUM PROTOCOL 06/28/24 09:00 07/28/24 08:59 07/02/24 18:49 100 MLS/HR Potassium Chloride (K-Dur 10meq Sr Tab) 10 meq AD PRN PO POTASSIUM PROTOCOL 06/28/24 15:00 07/28/24 08:59 07/02/24 16:07 10 MEQ Potassium Chloride (K-Dur/Klor-Con 20meq) 10 meq AD PRN PO POTASSIUM PROTOCOL 06/28/24 09:00 06/28/24 14:54 DC Potassium Chloride (KCl 10% Elixir 20meq/15ml) 10 meq AD PRN PO POTASSIUM PROTOCOL 06/28/24 09:00 07/28/24 08:59 07/01/24 16:11 10 MEQ Sodium Chloride 500 ml @ 0 mls/hr Q0M IV 06/29/24 16:30 07/29/24 16:29 06/29/24 16:30 999 MLS/HR Sodium Chloride 1,000 ml @ 125 mls/hr Q8H IV 06/28/24 09:00 07/28/24 08:59 07/02/24 10:08 125 MLS/HR DIAGNOSTICS / RADIOLOGY: [place] [address] IMAGING REPORT Signed PATIENT: JOHNATHAN MAHONEY MR#: [id number] : 1975 SEX: F AGE: 49 LOCATION: [facility] ORDER 08 STATUS: ADM IN REPORT#: [id number] SERVICE 08 REASON: CHOLELITHIASIS ORDERING PHYSICIAN: SHAMIKA MENDOZA MD PROCEDURE: MRCP WO - MRCP(ABDWO)CHOLANGIOPANCREATOG Exam Type: MRI OF THE ABDOMEN WITHOUT CONTRAST and MR cholangiopancreatography Comparison Study: none History: CHOLELITHIASIS PROTOCOL: Examination is done with multiecho multiplanar sequences. ASSET with multiplanar 3-D reconstructions MR cholangiopancreatography sequences are also available for review. MRCP performed customary fashion. 2D axial FIESTA fat-saturated images of abdomen, coronal thick slab MRCP ASSET scan and coronal thin slab MRCP ASSET 3 mm images and maximum intensity projection postprocessing, MIP projected in the customary circumferential and head over heels fashion. FINDINGS: No evidence of nephro or ureterolithiasis is found. No hydronephrosis or ureteral dilatation is seen. The stomach is unremarkable. There is no evidence of gastric dilatation. No blastic thickening is noted to suggest inflammation or tumor. There is no perforation. There is no gastric outlet obstruction. There is no ulceration. The spleen is unremarkable. It is not enlarged. The pancreas shows normal anatomy. It is not fatty replaced. It shows no lesions. The pancreatic duct is not dilated. There is cholelithiasis. No evidence of acute inflammation of the gallbladder is seen by MRI. The adrenal glands are unremarkable. There is no enlargement. No lesions are noted. The liver is unremarkable. It shows no focal masses. The visualized segments of large and small bowel appear unremarkable. The bony and vascular structures are unremarkable for the patient's age. MRCP is likewise unremarkable. The common bile duct is well as the intrahepatic bile ducts are well seen without filling defects to suggest calculi. There are no areas of dilatation or abrupt cutoffs. There is mild ascites. IMPRESSION: CHOLELITHIASIS. Mild ascites. Otherwise normal MRCP. DICTATED BY: BRIANNA LANDA MD DATE: 06/29/24937 ELECTRONICALLY SIGNED BY: BRIANNA LANDA MD DATE: 06/29/24943 [place] [address] [address] IMAGING REPORT Signed PATIENT: JOHNTAHAN MAHONEY MR#: [id number] : 1975 SEX: F AGE: 49 LOCATION: [facility] ORDER 0427 STATUS: REG ER REPORT#: [id number] SERVICE 0426 REASON: ruq pain ORDERING PHYSICIAN: DIAMOND CARVAJAL MD PROCEDURE: ABD PEL WO - CT ABDOMEN/PELVIS W/O CONTRAST Exam Type: CT ABDOMEN/PELVIS W/O CONTRAST Clinical Information: ruq pain Comparison: None CT Dose Index (CTDI): 10.20 mGy Dose Length Product (DLP): 530.00 total mGy-cm PROTOCOL: Routine noncontrast helical scanning of the abdomen and pelvis was performed at 5mm collimation. Findings: No evidence of nephro or ureterolithiasis is found. No hydronephrosis or ureteral dilatation is seen. The lung bases are clear. The stomach is unremarkable. It shows no wall thickening. No gross ulceration is seen. It is not overly distended. There are no surrounding inflammatory changes. No wall lesions are identified to suggest cancer. The spleen is unremarkable. It is not enlarged. Inflammation of the pancreas is seen consistent with acute pancreatitis. No fluid collections noted. The gallbladder is unremarkable. It shows no cholelithiasis. The gallbladder wall is normal in thickness. There is no pericholecystic fluid. The is no acute or chronic inflammation noted. The adrenal glands are unremarkable. There is no enlargement. No lesions are noted. The liver is unremarkable. It shows no focal masses. The appendix is unremarkable. It shows no evidence of inflammation. No appendicolith is seen. The small bowel is unremarkable. There is no evidence of dilatation to suggest obstruction. No evidence of adynamic ileus is seen. There is no small bowel wall thickening to suggest enteritis. The colon is unremarkable. The urinary bladder is unremarkable. There is no wall thickening to suggest tumor or inflammation. There are no intraluminal calculi. There are no diverticula. There is no evidence of chronic bladder outlet obstruction. There is no evidence of urinary bladder distention to suggest urinary retention. The other pelvic structures are unremarkable. The bony and vascular structures are unremarkable for the patient's age. IMPRESSION: Acute pancreatitis. Preliminary report with this information was sent by the on-call radiologist to ordering physicians time of exam. This study was performed using dose reduction techniques to include automated exposure control and/or adjustment of the mA and/or kV according to patient size. DICTATED BY: BRIANNA LANDA MD DATE: 06/28/24 0807 ELECTRONICALLY SIGNED BY: BRIANNA LANDA MD DATE: 06/28/24810 [facility] [address] [place], [place] [id number] IMAGING REPORT Signed PATIENT: JOHNATHAN MAHONEY MR#: [id number] : 1975 SEX: F AGE: 49 LOCATION: [facility] ORDER 6 STATUS: [facility] REPORT#: [id number] SERVICE 5 REASON: ruq pain ORDERING PHYSICIAN: DIAMOND CARVAJAL MD PROCEDURE: ABDRUQLTD - US ABDOMINAL RUQ\LTD Exam Type: US ABDOMINAL RUQ\E\LTD Clinical Information: ruq pain Comparison: None Findings: The liver shows increased echogenicity consistent with fatty liver infiltration and is enlarged. The liver measures 16.3 cm in length. Doppler evaluation shows patent portal and hepatic veins. The gallbladder shows cholelithiasis. No acute or chronic inflammatory changes are seen. The gallbladder wall thickness is 2 mm. No bile duct dilatation is noted. The common bile duct measures 5 mm. The right kidney is not visualized. The pancreas is within normal limits. IMPRESSION: Cholelithiasis. DICTATED BY: BRIANNA LANDA MD DATE: 06/28/24826 ELECTRONICALLY SIGNED BY: BRIANNA LANDA MD DATE: 06/28/24830 ASSESSMENT: Acute pancreatitis with severe elevation of lipase and biliary involvement, improving POA Transaminitis POA Hypokalemia POA Hyperglycemia POA PLAN: Acute pancreatitis with severe elevation of lipase and biliary involvement, improving POA Transaminitis, improving POA * Continue 0.9% Nacl 125 cc/hour daily. * Continue Zofran 4 mg IV every 6 hours when necessary for nausea and vomiting * Discontinued Zosyn * The patient was kept NPO since midnight for surgery today. * Continue morphine 2 mg IV every 4 hours for pain. * Replace electrolyte with protocol as needed. * Continue on insulin sliding scale * AM Labs: CBC, CMP The patient will be going for robotic cholecystectomy today in the morning. We will follow up patient post surgery and decide discharge planning. ATTESTATION BY PHYSICIAN I have seen and examined the patient. I reviewed the documentation, medical decision making, and treatment plan as noted by the resident provider above. I agree with the findings and plan of care. Dulce Luo MD, MANALI MD Jul 03, 2024 09:11
[2024-07-03] MEDS ORDERED: rocuRONium bROMide 10MG/1ML 5ML VL ONE ×2 (16:45→18:33)
[2024-07-03] MEDS ORDERED: MIDAZOLAM HCL 1 MG/ML 2ML VIAL ONE (16:45)
[2024-07-03] MEDS ORDERED: proPOFol 10 MG/ML 20ML VIAL IV ONE ×2 (16:45→19:25)
[2024-07-03] MEDS ORDERED: FENTanyl CITRate PF 50 MCG/1 ML 2ML VIAL ONE ×3 (16:45→19:54)
[2024-07-03] MEDS: INDOCYANINE GREEN 25 MG VIAL IJ ONE (16:57)
[2024-07-03] MEDS ORDERED: BUPIvacaine/PF 0.25% 30ML VIAL IJ ONE (17:01)
[2024-07-03] MEDS ORDERED: ondanSETRON 4MG INJ ONE (17:18)
[2024-07-03] MEDS: acetaMINOPHEN 100 ML ONE (17:31)
[2024-07-03] MEDS: FAMOTIDINE 20MG VIAL IV ONE (17:31)
[2024-07-03] MEDS: ceFAZolin SODIUM 3 GM VIAL IVPB ONE (17:48)
[2024-07-03] MEDS ORDERED: ceFAZolin SODIUM 1 GM VIAL ONE (18:32)
--- NOTE | 2024-07-03 18:47 | CONS ---
GASTROENTEROLOGY CONSULTATION NOTE Date of Consultation: Jul 03, 2024 Time of Consultation: 18:47 History of Present Illness: This is a 49-year-old female with past medical history of cholelithiasis who presented due to epigastric pain. Upon further evaluation she underwent abdominal ultrasound that revealed cholelithiasis and CT abdomen and pelvis revealing acute pancreatitis. MRCP was obtained which did not reveal any choledocholithiasis. Lipase on admission was 11,917. Patient is being followed by general surgery. Review of Systems: CONSTITUTIONAL: No malaise or change in sensation of wellbeing. ENMT: No rhinorrhea, otorrhea, sinus pain, ear ache. CARDIOVASCULAR: No angina, palpitations, orthopnea or paroxysmal dyspnea. RESPIRATORY: No SOB. GASTROINTESTINAL: No abdominal pain, nausea, vomiting, diarrhea, hematemesis, melena or change in the patient's habitual bowel movements consistency/number. GENITOURINARY: No dysuria, hematuria or change in bladder continence. MUSCULOSKELETAL: No new muscle pain or decrease in muscular strength. No new joint swelling, redness or tenderness. SKIN: No new rash. Past Medical History: PAST MEDICAL HISTORY: [ Gallstones ] PAST SURGICAL HISTORY: [ Section x 2 last one in 2011 ] PAST SOCIAL HISTORY: [ Patient denies the use of alcohol, cigarettes, or illicit drugs. Patient is able to ambulate without assistance and is completely independent with ADLs. ] FAMILY HISTORY: [ Non-reported ] Coded Allergies: No Known Allergies (Unverified Allergy, Unknown, 06/28/24) Coded Allergies: No Known Allergies (Unverified Allergy, Unknown, 06/28/24) Physical Exam: GEN: Awake, alert, oriented in person, time and place, and in no acute distress. HEENT: No sinus tenderness. Tympanic membranes were not examined. No rhinorrhea. Oral pharyngeal mucosa is pink, moist and within normal limits. Neck is supple with no cervical lymphadenopathy, thyromegaly or JVD. CHEST: Inspection, palpation and percussion of the chest were unremarkable. Lung auscultation revealed normal breath sounds bilaterally. CARDIAC: PMI is within normal limits. Heart sounds are regular. Normal S1, S2. No gallop or murmur. ABD: Soft, non-tender and not distended. No peritoneal signs on palpation. No organomegaly. Normal bowel sounds. EXT: No cyanosis or clubbing. No edema. SKIN: Intact. No rashes. JOINTS: No evidence of synovitis or acute arthritis. NEURO: Alert and oriented to name, place and person. Cranial nerve examination is unremarkable. No focal motor deficits. Normal speech. Gait is normal. Strength is normal. Vital Sign (Last 24 Hours) 07/02/24 07/03/24 20:00 16:00 Temp 98.8 Pulse 85 Resp 18 B/P (MAP) 137/72 Pulse Ox 91 O2 Delivery Room Air O2 Flow Rate 0 FiO2 21 Intake & Output (last 24hrs) 07/02/24 07/02/24 07/03/24 15:00 23:00 07:00 Intake Total 400 ml 200 ml Balance 400 ml 200 ml Laboratory: [ ] Laboratory: Test 07/03/24 16:06 07/03/24 04:24 07/02/24 05:56 Range/Units Whole Blood Glucose 109 70-110 MG/DL White Blood Count 8.7 4.8-10.8 K/uL Red Blood Count 4.31 4.00-5.50 MIL/uL Hemoglobin 12.2 12.0-16.0 g/dL Hematocrit 36.1 36-48 % Mean Corpuscular Volume 83.8 79-99 fL Mean Corpuscular Hemoglobin 28.3 27.0-33.0 pg Mean Corpuscular Hemoglobin Concent 33.8 32.0-36.0 g/dL Red Cell Distribution Width 13.9 11.0-15.5 % Platelet Count 303 130-400 K/uL Mean Platelet Volume 9.9 7.5-10.5 fL Immature Granulocyte % (Auto) 1.0 0-1 % Neutrophils (%) (Auto) 74.3 40.0-77.0 % Lymphocytes (%) (Auto) 12.5 L 21.0-51.0 % Monocytes (%) (Auto) 7.9 3.0-13.0 % Eosinophils (%) (Auto) 4.0 0.0-8.0 % Basophils (%) (Auto) 0.3 0.0-5.0 % Neutrophils # (Auto) 6.4 1.8-7.7 K/uL Lymphocytes # (Auto) 1.1 1.0-4.8 K/uL Monocytes # (Auto) 0.7 0.1-1.0 K/uL Eosinophils # (Auto) 0.35 0.00-0.70 K/uL Basophils # (Auto) 0.03 0.00-0.20 K/uL Absolute Immature Granulocyte (auto 0.09 0-1 K/uL Nucleated Red Blood Cells 0.0 0.0-0.19 % Sodium Level 145 136-145 mmol/L Potassium Level 3.2 L 3.5-5.1 mmol/L Chloride Level 105 101-111 mmol/L Carbon Dioxide Level 29 21-32 mmol/L Blood Urea Nitrogen 6 L 7-18 mg/dL Creatinine 0.7 0.5-1.0 mg/dL Glomerular Filtration Rate Calc 107 >90 mL/min Random Glucose 117 H 70-105 mg/dL Total Calcium 8.6 8.5-10.1 mg/dL Total Bilirubin 1.0 # 0.2-1.0 mg/dL Aspartate Amino Transf (AST/SGOT) 30 10-37 U/L Alanine Aminotransferase (ALT/SGPT) 160 #H 12-78 U/L Alkaline Phosphatase 242 H 50-136 U/L Total Protein 6.2 6.0-8.3 g/dL Albumin 2.3 L 3.5-5.0 g/dL Direct Bilirubin 0.4 H 0.0-0.3 mg/dL Lipase 74 16-77 U/L Current Medications Medications (Trade) Dose Ordered Sig/[place] Route PRN Reason Start Time Stop Time Status Last Admin Dose Admin Acetaminophen (TYLenol 325MG TAB) 650 mg Q4H PRN PO MILD PAIN (1-3) 06/28/24 09:00 07/28/24 08:59 07/02/24 10:15 650 MG Acetaminophen (TYLenol 325MG TAB) 650 mg Q6H PRN PO TEMPERATURE GREATER THAN 101.5 06/28/24 09:00 06/28/24 08:56 DC Acetaminophen/ Codeine Phosphate (TYLenol-coDEINE TAB) 1 tab Q6H PRN PO MODERATE PAIN (4-6) 06/28/24 09:00 07/28/24 08:59 07/02/24 23:53 1 TAB Acetaminophen/ Codeine Phosphate (TYLenol-coDEINE TAB) 2 tab Q6H PRN PO SEVERE PAIN (7-10) 06/28/24 09:00 06/28/24 14:55 DC 06/28/24 11:26 2 TAB Enoxaparin Sodium (Lovenox) 30 mg DAILY SQ 06/28/24 09:00 07/28/24 08:59 07/02/24 10:07 30 MG Famotidine (Pepcid 20mg Vial) 20 mg BID IV 06/28/24 09:00 07/28/24 08:59 07/03/24 09:00 20 MG Guaifenesin/ Dextromethorphan (RobiTUSSin DM 200/20MG 10ML) 10 ml Q6H PRN PO COUGH 06/30/24 22:00 07/30/24 21:59 07/02/24 22:11 10 ML Hydralazine HCl (APRESOLine 20MG INJ) 10 mg Q6H PRN IV ADMINISTER FOR SBP/DBP>160/110 06/28/24 19:00 07/28/24 18:59 Hydromorphone HCl (DiLAUDid 1MG INJ) 0.5 mg Q4H PRN IV SEVERE PAIN (7-10) 06/28/24 09:00 06/28/24 08:55 DC Hydroxyzine HCl (ATArax 25MG TAB) 25 mg ONCE PO 06/30/24 20:30 06/30/24 23:59 DC 06/30/24 21:10 25 MG Hydroxyzine HCl (ATArax 25MG TAB) 25 mg ONCE PRN PO Anxiety 07/01/24 17:00 07/02/24 17:40 DC 07/02/24 17:39 25 MG Insulin Human Regular (humuLIN R 100 UNIT/ML 3ML) INSULIN SLIDING SCAL... ACHS SQ 07/01/24 21:00 07/28/24 11:59 Insulin Human Regular (humuLIN R 100 UNIT/ML 3ML) INSULIN SLIDING SCAL... Q6H6 SQ 06/28/24 12:00 07/01/24 19:13 DC Lisinopril (Prinivil 2.5mg) 2.5 mg DAILY PO 07/02/24 09:00 08/01/24 08:59 07/03/24 09:00 2.5 MG Lorazepam (AtiVAN) 0.25 mg ONCE PRN PO As needed for anxiety 06/30/24 22:00 06/30/24 23:59 DC Magnesium Sulfate 50 ml @ 0 mls/hr PROTOCOL PRN IV MAGNESIUM PROTOCOL 06/28/24 09:00 07/28/24 08:59 07/01/24 05:37 25 MLS/HR Morphine Sulfate (morPHINE 2MG SYG) 2 mg Q4H PRN IV MODERATE PAIN (4-6) 06/28/24 09:00 06/28/24 08:55 DC Morphine Sulfate (morPHINE 2MG SYG) 2 mg Q4H PRN IVP SEVERE PAIN (7-10) 06/28/24 15:00 07/03/24 17:59 DC 07/03/24 15:55 2 MG Ondansetron HCl (zoFRAN 4MG INJ) 4 mg Q6H PRN IV NAUSEA/VOMITING 06/28/24 09:00 07/28/24 08:59 Piperacillin Sod/ Tazobactam Sod 50 ml @ 12.5 mls/hr ZOSY8 IV 06/28/24 13:00 07/02/24 09:34 DC 07/02/24 06:00 12.5 MLS/HR Potassium Chloride 100 ml @ 100 mls/hr AD PRN IV POTASSIUM PROTOCOL 06/28/24 09:00 07/28/24 08:59 07/02/24 18:49 100 MLS/HR Potassium Chloride (K-Dur 10meq Sr Tab) 10 meq AD PRN PO POTASSIUM PROTOCOL 06/28/24 15:00 07/28/24 08:59 07/02/24 16:07 10 MEQ Potassium Chloride (K-Dur/Klor-Con 20meq) 10 meq AD PRN PO POTASSIUM PROTOCOL 06/28/24 09:00 06/28/24 14:54 DC Potassium Chloride (KCl 10% Elixir 20meq/15ml) 10 meq AD PRN PO POTASSIUM PROTOCOL 06/28/24 09:00 07/28/24 08:59 07/01/24 16:11 10 MEQ Sodium Chloride 500 ml @ 0 mls/hr Q0M IV 06/29/24 16:30 07/29/24 16:29 06/29/24 16:30 999 MLS/HR Sodium Chloride 1,000 ml @ 125 mls/hr Q8H IV 06/28/24 09:00 07/28/24 08:59 07/03/24 15:54 125 MLS/HR Diagnostics / Radiology: [COPY/PASTE HERE IF NO REPORTS PLEASE DELETE SECTION] Assessment: Acute pancreatitis Cholelithiasis Plan: 1. NPO. ERCP not warranted. Follow surgical recommendations 2. Aggressive IV fluids lactated ringers for 12-24 hours to maintain adequate pancreatic perfusion and prevent ischemic necrosis 3. Supportive care with opioid analgesics (avoid NSAIDs) and anti-emetics 4. Close patient monitoring of vital signs including O2 saturations, urine output, and electrolyte replacement 5. Resume oral intake within 2 days if the pain is decreasing and there is no ileus with a low fat, low residue diet. Advance as tolerated 6. Consider CT with IV contrast after 48 hours of IVF to assess for necrosis if the patient is not progressing. 7. IF oral diet is not tolerated, nasojejunal tube feeds are preferred over TPN Thank you for allowing us to participate in the care of this patient! PARAM PALMER SUSTAINABLE LANDSCAPE ARCHITECT Jul 03, 2024 18:47
[2024-07-03] MEDS ORDERED: GLYCOPYRROLATE 0.2 MG/ML 5 ML VIAL ONE (19:41)
[2024-07-03] MEDS ORDERED: NEOSTIGMINE METHYLSULFATE 1MG/ML IV ONE (19:41)
[2024-07-03] MEDS ORDERED: MEPERIDINE-PF 25 MG/ML SYG ONE (19:53)
[2024-07-03] MEDS: SUGAMMADEX SODIUM 200 MG/2 ML VIAL IV ONE (20:21)
--- NOTE | 2024-07-03 20:39 | OP ---
Operative Note: DATE OF PROCEDURE: 07/03/24 SURGEON: ERIC OLSEN MD [place]ALP TREATMENT OPER[place] [facility] [place] ANESTHESIA: General PREOPERATIVE DIAGNOSIS: Gallstone pancreatitis POSTOPERATIVE DIAGNOSIS: gallStone pancreatitis Findings: Marked central obesity, very large bulky fatty liver, mildly inflamed gallbladder PROCEDURE: Robotic cholecystectomy with Firefly (ICG green) ESTIMATED BLOOD LOSS: 20 mL INDICATIONS: 49-year-old female with who was admitted with gallstone pancreatitis. A robotic cholecystectomy was indicated during this admission. Informed consent was obtained prior to the procedure which included a discussion about the possible risks such as bleeding, infection, bile duct injury, bile leak, and injury to surrounding viscera. DESCRIPTION OF PROCEDURE: Patient was taken to the operating room placed on the operating table in supine position. Next general anesthesia was induced and the patient was intubated. There abdomen was prepped and draped in a sterile fashion. A time-out was called and the patient's identity procedure and preoperative antibiotics were confirmed. I insufflated the abdominal cavity with a Veress needle. Once a pneumoperitoneum was established I entered the abdominal cavity using a 12 mm Optiview port in the left mid abdomen. I placed three additional 8 mm ports across a straight line. The robot was docked to the patient. Pertinent findings: The patient had a very large bulky fatty liver. She had marked central obesity. All this contributed to the complexity of the case. Her gallbladder was mildly inflamed. The gallbladder was retracted in a cephalad direction. I began to carefully dissect out the hepatic cystic triangle. I used ICG green to confirm ductal anatomy. The critical view was established. I identified the cystic artery. This was clipped and divided. The cystic duct was identified. This was clipped and divided. I then cauterized the gallbladder off the liver fossa bed. I checked the liver bed for bleeding. Hemostasis was obtained with electrocautery and packing. The gallbladder was placed in a specimen bag and removed from the abdominal cavity. I closed the fascia of the 12 mm port with a 1-0 Vicryl suture on a Bhargav-Ivan closure device. The pneumoperitoneum was evacuated. Skin incisions were closed with 0.25% Marcaine. Dermabond was applied. Sponge needle instrument counts were accurate. Patient's anesthesia was reversed and they were extubated and taken to recovery room in stable condition. ERIC OLSEN MD Jul 03, 2024 20:39
--- NOTE | 2024-07-03 21:25 | NUR ---
RECEIVED PATIENT AT THIS TIME. PATIENT IS AWAKE AND ORIENTED X 4, COMPLAINING OF PAIN TO THE ABDOMEN. PATIENT WANTS TO GET UP TO THE TOILET, OFFERED PATIENT BED VAZQUEZ DUE TO HAVING A BLOCK DONE IN OR. PATIENT STILL WANTS TO GET UP. BED ALARM IS ON, REINFORCING INSTRUCTION.
[2024-07-03] MEDS: SIMETHICONE 80 MG TAB.CHEW PO SCH (22:39)
[2024-07-03] MEDS: ketOROlac 15MG/ML VIAL (15MG/ML) IM PRN (22:43)
[2024-07-03] MEDS: hydrALAZine 20MG/ML VIAL IV PRN (23:53)
[2024-07-04] VITALS (8 sets, daily range): BP systolic 129–152; BP diastolic 66–84; PULSE 72–94; RESP 15–20; TEMP 97.4–100.2; O2SAT 93
[2024-07-04] MEDS: hydroMORPHone 0.5 MG SYG (0.5MG/0.5ML) IVP ONE (01:32)
[2024-07-04 04:31] LABS: BASOPHILS # (AUTO) 0.01 K/uL (0.00-0.20); BASOPHILS % (AUTO) 0.1 % (0.0-5.0); EOSINOPHILS # (AUTO) 0.01 K/uL (0.00-0.70); EOSINOPHILS % (AUTO) 0.1 % (0.0-8.0); HEMATOCRIT 34.2 % (36-48); IMMATURE GRANULOCYTE ABSOLUTE 0.08 K/uL (0-1); LYMPHOCYTES # (AUTO) 0.7 K/uL (1.0-4.8); LYMPHOCYTES % (AUTO) 8.9 % (21.0-51.0); MEAN CORPUSCULAR HEMOGLOBIN 27.9 pg (27.0-33.0); MEAN CORPUSCULAR VOLUME 84.4 fL (79-99); MONOCYTES # (AUTO) 0.4 K/uL (0.1-1.0); MONOCYTES % (AUTO) 5.6 % (3.0-13.0); NEUTROPHILS # (AUTO) 6.3 K/uL (1.8-7.7); NEUTROPHILS % (AUTO) 84.2 % (40.0-77.0); PLATELET COUNT (AUTO) 348 K/uL (130-400); RED BLOOD CELL COUNT(AUTO) 4.05 MIL/uL (4.00-5.50); RED CELL DISTRIBUTION WIDTH 14.3 % (11.0-15.5); WHITE BLOOD COUNT (AUTO) 7.5 K/uL (4.8-10.8)
[2024-07-04 04:47] LABS: ALBUMIN 2.2 g/dL (3.5-5.0); BILIRUBIN,TOTAL 0.8 mg/dL (0.2-1.0); CREATININE 0.6 mg/dL (0.5-1.0); POTASSIUM 3.4 mmol/L (3.5-5.1); TOTAL PROTEIN, SERUM 6.2 g/dL (6.0-8.3)
--- NOTE | 2024-07-04 10:35 | PN ---
This is a 49-year-old female postop day one for robotic cholecystectomy by Dr. Miller Interval history: This 49-year-old female seen in her room resting Patient tolerating clear liquid diet Positive flatus reported Patient's pain controlled Labs and vitals unremarkable Physical exam General: Awake alert and oriented Heart: Regular rate and rhythm} Lungs: Clear to auscultation no distress Abdomen: [Soft, nontender, nondistended Assessment : This is a 49-year-old female status post cholecystectomy postop day one Plan: Patient to advance diet as tolerated Possible discharge today No heavy lifting for six weeks Follow up in two weeks with Dr. Miller Under for postoperative infection Surgical team to be updated with any further acute events Vitals/Labs Vital Signs Date Time Temp Pulse Resp B/P (MAP) Pulse Ox O2 Delivery O2 Flow Rate FiO2 07/04/24 09:40 93 Room Air* 0 21 07/04/24 08:00 100.2 75 16 152/84 Laboratory Tests 07/04/24 04:23 Medications Current Medications Sodium Chloride 1,000 ml @ 0 mls/hr ONCE ONCE IV Last administered on 06/28/24at 02:58; Start 06/28/24 at 03:00; Stop 06/28/24 at 03:01; Status DC Acetaminophen 650 mg ONCE ONCE PO Last administered on 06/28/24at 02:59; Start 06/28/24 at 03:00; Stop 06/28/24 at 03:01; Status DC Ondansetron HCl 4 mg ONCE ONCE IVP Last administered on 06/28/24at 02:58; Start 06/28/24 at 03:00; Stop 06/28/24 at 03:01; Status DC Pantoprazole Sodium 40 mg ONCE ONCE IVP Last administered on 06/28/24at 02:58; Start 06/28/24 at 03:00; Stop 06/28/24 at 03:01; Status DC Dicyclomine HCl 10 mg ONCE ONCE IM Last administered on 06/28/24at 03:28; Start 06/28/24 at 03:30; Stop 06/28/24 at 03:31; Status DC Dicyclomine HCl 10 mg ONCE ONCE IM; Start 06/28/24 at 03:30; Stop 06/28/24 at 03:31; Status DC Ondansetron HCl 4 mg ONCE ONCE IVP Last administered on 06/28/24at 04:34; Start 06/28/24 at 04:30; Stop 06/28/24 at 04:31; Status DC Morphine Sulfate 2 mg ONCE ONCE IVP Last administered on 06/28/24at 04:33; Start 06/28/24 at 04:30; Stop 06/28/24 at 04:31; Status DC Potassium Chloride 100 ml @ 100 mls/hr ONCE ONCE IV Last administered on 06/28/24at 06:22; Start 06/28/24 at 05:00; Stop 06/28/24 at 05:59; Status DC Piperacillin Sod/ Tazobactam Sod 3.375 gm ONCE ONCE IV Last administered on 06/28/24at 06:21; Start 06/28/24 at 06:00; Stop 06/28/24 at 06:01; Status DC Hydromorphone HCl 0.5 mg ONCE ONCE IVP Last administered on 06/28/24at 07:24; Start 06/28/24 at 07:30; Stop 06/28/24 at 07:31; Status DC Ondansetron HCl 4 mg ONCE ONCE IVP Last administered on 06/28/24at 08:38; Start 06/28/24 at 08:30; Stop 06/28/24 at 08:31; Status DC Acetaminophen 650 mg Q6H PRN PO; Start 06/28/24 at 09:00; Stop 06/28/24 at 08:56; Status DC Acetaminophen 650 mg Q4H PRN PO Last administered on 07/02/24at 10:15; Start 06/28/24 at 09:00; Stop 07/28/24 at 08:59 Ondansetron HCl 4 mg Q6H PRN IV; Start 06/28/24 at 09:00; Stop 07/28/24 at 08:59 Piperacillin Sod/ Tazobactam Sod 50 ml @ 12.5 mls/hr ZOSY8 IV Last administered on 07/02/24at 06:00; Start 06/28/24 at 13:00; Stop 07/02/24 at 09:34; Status DC Enoxaparin Sodium 30 mg DAILY SQ Last administered on 07/04/24at 09:11; Start 06/28/24 at 09:00; Stop 07/28/24 at 08:59 Morphine Sulfate 2 mg Q4H PRN IV; Start 06/28/24 at 09:00; Stop 06/28/24 at 08:55; Status DC Sodium Chloride 1,000 ml @ 125 mls/hr Q8H IV Last administered on 07/03/24at 23:54; Start 06/28/24 at 09:00; Stop 07/28/24 at 08:59 Hydromorphone HCl 0.5 mg Q4H PRN IV; Start 06/28/24 at 09:00; Stop 06/28/24 at 08:55; Status DC Famotidine 20 mg BID IV Last administered on 07/04/24at 09:11; Start 06/28/24 at 09:00; Stop 07/28/24 at 08:59 Acetaminophen/ Codeine Phosphate 1 tab Q6H PRN PO Last administered on 07/04/24at 00:38; Start 06/28/24 at 09:00; Stop 07/28/24 at 08:59 Acetaminophen/ Codeine Phosphate 2 tab Q6H PRN PO Last administered on 06/28/24at 11:26; Start 06/28/24 at 09:00; Stop 06/28/24 at 14:55; Status DC Insulin Human Regular INSULIN SLIDING SCAL... Q6H6 SQ; Start 06/28/24 at 12:00; Stop 07/01/24 at 19:13; Status DC Potassium Chloride 100 ml @ 100 mls/hr AD PRN IV Last administered on 07/02/24at 18:49; Start 06/28/24 at 09:00; Stop 07/28/24 at 08:59 Potassium Chloride 10 meq AD PRN PO Last administered on 07/01/24at 16:11; Start 06/28/24 at 09:00; Stop 07/28/24 at 08:59 Potassium Chloride 10 meq AD PRN PO; Start 06/28/24 at 09:00; Stop 06/28/24 at 14:54; Status DC Magnesium Sulfate 50 ml @ 0 mls/hr PROTOCOL PRN IV Last administered on 07/01/24at 05:37; Start 06/28/24 at 09:00; Stop 07/28/24 at 08:59 Morphine Sulfate 2 mg Q4H PRN IVP Last administered on 07/03/24at 15:55; Start 06/28/24 at 15:00; Stop 07/03/24 at 17:59; Status DC Morphine Sulfate 4 mg ONCE ONCE IVP Last administered on 06/28/24at 15:16; Start 06/28/24 at 15:00; Stop 06/28/24 at 15:01; Status DC Potassium Chloride 10 meq AD PRN PO Last administered on 07/04/24at 09:11; Start 06/28/24 at 15:00; Stop 07/28/24 at 08:59 Labetalol HCl 5 mg ONCE ONCE IV Last administered on 06/28/24at 19:19; Start 06/28/24 at 19:00; Stop 06/28/24 at 19:01; Status DC Hydralazine HCl 10 mg Q6H PRN IV Last administered on 07/03/24at 23:53; Start 06/28/24 at 19:00; Stop 07/28/24 at 18:59 Sodium Chloride 500 ml @ 0 mls/hr Q0M IV Last administered on 06/29/24at 16:30; Start 06/29/24 at 16:30; Stop 07/29/24 at 16:29 Hydroxyzine HCl 25 mg ONCE PO Last administered on 06/30/24at 21:10; Start 06/30/24 at 20:30; Stop 06/30/24 at 23:59; Status DC Guaifenesin/ Dextromethorphan 10 ml Q6H PRN PO Last administered on 07/02/24at 22:11; Start 06/30/24 at 22:00; Stop 07/30/24 at 21:59 Lorazepam 0.25 mg ONCE PRN PO; Start 06/30/24 at 22:00; Stop 06/30/24 at 23:59; Status DC Hydroxyzine HCl 25 mg ONCE PRN PO Last administered on 07/02/24at 17:39; Start 07/01/24 at 17:00; Stop 07/02/24 at 17:40; Status DC Lisinopril 2.5 mg DAILY PO Last administered on 07/04/24at 09:11; Start 07/02/24 at 09:00; Stop 08/01/24 at 08:59 Insulin Human Regular INSULIN SLIDING SCAL... ACHS SQ; Start 07/01/24 at 21:00; Stop 07/28/24 at 11:59 Propofol 200 mg STK-MED ONCE IV; Start 07/03/24 at 16:45; Stop 07/03/24 at 17:49; Status DC Midazolam HCl 2 mg STK-MED ONCE .ROUTE; Start 07/03/24 at 16:45; Stop 07/03/24 at 17:49; Status DC Rocuronium Gobles 50 mg STK-MED ONCE .ROUTE; Start 07/03/24 at 16:45; Stop 07/03/24 at 17:49; Status DC Fentanyl Citrate 100 mcg STK-MED ONCE .ROUTE; Start 07/03/24 at 16:45; Stop 07/03/24 at 17:49; Status DC Indocyanine Green 25 mg STK-MED ONCE IJ; Start 07/03/24 at 16:57; Stop 07/03/24 at 17:49; Status DC Bupivacaine HCl 2.5 mg STK-MED ONCE IJ; Start 07/03/24 at 17:01; Stop 07/03/24 at 17:49; Status DC Fentanyl Citrate 100 mcg STK-MED ONCE .ROUTE; Start 07/03/24 at 17:06; Stop 07/03/24 at 17:49; Status DC Ondansetron HCl 4 mg STK-MED ONCE .ROUTE; Start 07/03/24 at 17:18; Stop 07/03/24 at 17:49; Status DC Acetaminophen 100 ml @ As Directed STK-MED ONCE .ROUTE; Start 07/03/24 at 17:31; Stop 07/03/24 at 17:49; Status DC Famotidine 20 mg STK-MED ONCE IV; Start 07/03/24 at 17:31; Stop 07/03/24 at 17:49; Status DC Cefazolin Sodium 3 gm STK-MED ONCE IVPB Last administered on 07/03/24at 17:48; Start 07/03/24 at 17:48; Stop 07/03/24 at 18:18; Status DC Bupivacaine HCl 150 mg STK-MED ONCE IJ Last administered on 07/03/24at 18:14; Start 07/03/24 at 18:14; Stop 07/03/24 at 18:18; Status DC Indocyanine Green 25 mg STK-MED ONCE IJ Last administered on 07/03/24at 17:30; Start 07/03/24 at 17:30; Stop 07/03/24 at 18:18; Status DC Cefazolin Sodium 1 gm STK-MED ONCE .ROUTE; Start 07/03/24 at 18:32; Stop 07/03/24 at 18:32; Status DC Rocuronium Gobles 50 mg STK-MED ONCE .ROUTE; Start 07/03/24 at 18:33; Stop 07/03/24 at 18:34; Status DC Propofol 200 mg STK-MED ONCE IV; Start 07/03/24 at 19:25; Stop 07/03/24 at 19:26; Status DC Glycopyrrolate 1 mg STK-MED ONCE .ROUTE; Start 07/03/24 at 19:41; Stop 07/03/24 at 19:41; Status DC Neostigmine Methylsulfate 10 mg STK-MED ONCE IV; Start 07/03/24 at 19:41; Stop 07/03/24 at 19:41; Status DC Meperidine HCl 25 mg STK-MED ONCE .ROUTE; Start 07/03/24 at 19:53; Stop 07/03/24 at 19:54; Status DC Fentanyl Citrate 100 mcg STK-MED ONCE .ROUTE; Start 07/03/24 at 19:54; Stop 07/03/24 at 19:54; Status DC Simethicone 80 mg QID PO Last administered on 07/04/24at 09:11; Start 07/03/24 at 21:00; Stop 08/02/24 at 20:59 Ketorolac Tromethamine 15 mg Q6H PRN IM Last administered on 07/03/24at 22:43; Start 07/03/24 at 21:00; Stop 07/08/24 at 20:59 Hydromorphone HCl 0.5 mg ONCE ONCE IVP Last administered on 07/04/24at 01:32; Start 07/04/24 at 01:30; Stop 07/04/24 at 01:31; Status DC HEBER CLEMENTS Jr. Jul 04, 2024 10:35
--- NOTE | 2024-07-04 14:33 | DS ---
Discharge Summary Hospital Course Summary: The patient is a 49-year-old female with a no significant past medical history presented to ED on 06/28 with the chief complaints of mild epigastric abdominal pain radiating to back and bilateral flanks of 12 hours associated with the episodes of nausea and vomiting. She reported no history of similar episodes before. On presentation she was afebrile, blood pressure was 188/90. Labs showed a WBC of 11.4 with neutrophilia, potassium 2.8, total bilirubin 2.0, AST 573, ALT 446, alkaline phosphatase 222, triglycerides 88, lipase 47328. Abdominal ultrasound showed cholelithiasis. Abdomen and pelvis CT showed acute pancreatitis. The patient received analgesics, Zofran, Protonix, 0.9% Na Cl bolus, Zosyn and was admitted for the management of acute pancreatitis. During the course of hospitalization, the patient was closely monitored for improvements in her condition related to pancreatitis through clinical signs, symptoms, and daily laboratory tests. MRCP findings were consistent with mild ascites and cholelithiasis. Over the first four days, with the administration of analgesics, fluid resuscitation with normal saline, and antibiotics, significant improvement was noted. The patient's [place]ase levels decreased [place] 74 [place] [address], and liver enzymes were trending down as well. Daily lab results indicated persistent hypokalemia, with potassium levels falling below 3, which were replaced aggressively. On hospital day 5, a consultation with General Surgery was obtained to determine whether the patient required a cholecystectomy during this admission, as it was believed that the pancreatitis was secondary to cholelithiasis. The surgeon decided to proceed with a robotic cholecystectomy. The surgery was performed on July 03, [address] Fay Miller and found to have very large bulky fatty liver and mildly inflamed gallbladder. There were no intra or postoperative complications were noted, with the patient otherwise stable. On July 04, 2024, post-operative day 1, the patient's condition had significantly improved; hypokalemia is resolving, she reported no pain, was able to pass flatus, had a bowel movement, and tolerated a soft diet. The patient is medically stable for discharge and can be followed up as an outpatient with both the general surgeon and her primary care provider. Waste Water Worker(s): Dr. Prasanna Spence, General Surgeon Dr. Fay Miller, General Surgeon Gastroenterology Procedure(s): [place] [address] [place], [place] [id number] IMAGING REPORT Signed PATIENT: JOHNATHAN MAHONEY MR#: [id number] : 1975 SEX: F AGE: 49 LOCATION: 3BH ORDER 0809 STATUS: ADM IN REPORT#: [id number] SERVICE 08 REASON: CHOLELITHIASIS ORDERING PHYSICIAN: SHAMIKA MENDOZA MD PROCEDURE: MRCP WO - MRCP(ABDWO)CHOLANGIOPANCREATOG Exam Type: MRI OF THE ABDOMEN WITHOUT CONTRAST and MR cholangiopancreatography Comparison Study: none History: CHOLELITHIASIS PROTOCOL: Examination is done with multiecho multiplanar sequences. ASSET with multiplanar 3-D reconstructions MR cholangiopancreatography sequences are also available for review. MRCP performed customary fashion. 2D axial FIESTA fat-saturated images of abdomen, coronal thick slab MRCP ASSET scan and coronal thin slab MRCP ASSET 3 mm images and maximum intensity projection postprocessing, MIP projected in the customary circumferential and head over heels fashion. FINDINGS: No evidence of nephro or ureterolithiasis is found. No hydronephrosis or ureteral dilatation is seen. The stomach is unremarkable. There is no evidence of gastric dilatation. No blastic thickening is noted to suggest inflammation or tumor. There is no perforation. There is no gastric outlet obstruction. There is no ulceration. The spleen is unremarkable. It is not enlarged. The pancreas shows normal anatomy. It is not fatty replaced. It shows no lesions. The pancreatic duct is not dilated. There is cholelithiasis. No evidence of acute inflammation of the gallbladder is seen by MRI. The adrenal glands are unremarkable. There is no enlargement. No lesions are noted. The liver is unremarkable. It shows no focal masses. The visualized segments of large and small bowel appear unremarkable. The bony and vascular structures are unremarkable for the patient's age. MRCP is likewise unremarkable. The common bile duct is well as the intrahepatic bile ducts are well seen without filling defects to suggest calculi. There are no areas of dilatation or abrupt cutoffs. There is mild ascites. IMPRESSION: CHOLELITHIASIS. Mild ascites. Otherwise normal MRCP. DICTATED BY: BRIANNA LANDA MD DATE: 06/29/24937 ELECTRONICALLY SIGNED BY: BRIANNA LANDA MD DATE: 06/29/24943 [facility] [address] [place] [id number] IMAGING REPORT Signed PATIENT: JOHNATHAN MAHONEY MR#: [id number] : 1975 SEX: F AGE: 49 LOCATION: EDH ORDER 6 STATUS: REG ER REPORT#: [id number] SERVICE 5 REASON: ruq pain ORDERING PHYSICIAN: DIAMOND CARVAJAL MD PROCEDURE: ABD PEL WO - CT ABDOMEN/PELVIS W/O CONTRAST Exam Type: CT ABDOMEN/PELVIS W/O CONTRAST Clinical Information: ruq pain Comparison: None CT Dose Index (CTDI): 10.20 mGy Dose Length Product (DLP): 530.00 total mGy-cm PROTOCOL: Routine noncontrast helical scanning of the abdomen and pelvis was performed at 5mm collimation. Findings: No evidence of nephro or ureterolithiasis is found. No hydronephrosis or ureteral dilatation is seen. The lung bases are clear. The stomach is unremarkable. It shows no wall thickening. No gross ulceration is seen. It is not overly distended. There are no surrounding inflammatory changes. No wall lesions are identified to suggest cancer. The spleen is unremarkable. It is not enlarged. Inflammation of the pancreas is seen consistent with acute pancreatitis. No fluid collections noted. The gallbladder is unremarkable. It shows no cholelithiasis. The gallbladder wall is normal in thickness. There is no pericholecystic fluid. The is no acute or chronic inflammation noted. The adrenal glands are unremarkable. There is no enlargement. No lesions are noted. The liver is unremarkable. It shows no focal masses. The appendix is unremarkable. It shows no evidence of inflammation. No appendicolith is seen. The small bowel is unremarkable. There is no evidence of dilatation to suggest obstruction. No evidence of adynamic ileus is seen. There is no small bowel wall thickening to suggest enteritis. The colon is unremarkable. The urinary bladder is unremarkable. There is no wall thickening to suggest tumor or inflammation. There are no intraluminal calculi. There are no diverticula. There is no evidence of chronic bladder outlet obstruction. There is no evidence of urinary bladder distention to suggest urinary retention. The other pelvic structures are unremarkable. The bony and vascular structures are unremarkable for the patient's age. IMPRESSION: Acute pancreatitis. Preliminary report with this information was sent by the on-call radiologist to ordering physicians time of exam. This study was performed using dose reduction techniques to include automated exposure control and/or adjustment of the mA and/or kV according to patient size. DICTATED BY: BRIANNA LANDA MD DATE: 06/28/24806 ELECTRONICALLY SIGNED BY: BRIANNA LANDA MD DATE: 06/28/24810 [place] [id number] [place] [id number] IMAGING REPORT Signed PATIENT: JOHNATHAN MAHONEY MR#: [id number] : 1975 SEX: F AGE: 49 LOCATION: [facility] ORDER 6 STATUS: [facility] REPORT#: [id number] SERVICE 5 REASON: ruq pain ORDERING PHYSICIAN: DIAMOND CARVAJAL MD PROCEDURE: ABDRUQLTD - US ABDOMINAL RUQ\LTD Exam Type: US ABDOMINAL RUQ\E\LTD Clinical Information: ruq pain Comparison: None Findings: The liver shows increased echogenicity consistent with fatty liver infiltration and is enlarged. The liver measures 16.3 cm in length. Doppler evaluation shows patent portal and hepatic veins. The gallbladder shows cholelithiasis. No acute or chronic inflammatory changes are seen. The gallbladder wall thickness is 2 mm. No bile duct dilatation is noted. The common bile duct measures 5 mm. The right kidney is not visualized. The pancreas is within normal limits. IMPRESSION: Cholelithiasis. DICTATED BY: BRIANNA LANDA MD DATE: 06/28/24826 ELECTRONICALLY SIGNED BY: BRIANNA LANDA MD DATE: 06/28/24830 Assessment/Plan: ASSESSMENT: Acute pancreatitis with severe elevation of lipase and biliary involvement, improved POA S/p Robotic Cholecystectomy Transaminitis, improving POA Hypokalemia, improved POA Hyperglycemia POA Admission Date: 06/28/2024 Discharge Date: 07/04/2024 Disposition: Home Condition: Stable Waste Water Worker: Dr. Prasanna Spence, General Surgeon Dr. Fay Miller, General Surgeon Activity: As tolerated Home medications : None Discharge medications: Take Tylenol PRN for pain Follow up appointment: We reinforced the importance of follow up visits. Discharge Instructions: Drink plenty of fluids No heavy lifting for six weeks Follow up in two weeks with Dr. Miller Please visit to the nearest emergency department or call 911 should the symptoms return or gets worse. Discharge Instructions: ATTESTATION BY PHYSICIAN I have seen and examined the patient. I reviewed the documentation, medical decision making, and treatment plan as noted by the resident provider above. I agree with the findings and plan of care. Dulce Luo MD Home Medications: No Active Prescriptions or Reported Meds Medication Profile: No Active Prescriptions or Reported Meds Time spent arranging discharge: 31-60 minutes ATTESTATION BY PHYSICIAN I have seen and examined the patient. I reviewed the documentation, medical decision making, and treatment plan as noted by the resident provider above. I agree with the findings and plan of care. Dulce Luo MD, MANALI MD Jul 04, 2024 14:33
--- NOTE | 2024-07-04 18:50 | NUR ---
D/C INSTRUCTIONS D/C INSTRUCTIONS PROVIDED AND ACKNOWLEDGED. IV LINE REMOVED
== END 2024-07-04 19:00 | disposition home or self-care (01) | DRG 417 ==
LOC: EDH 02:35 → EDHIP 08:36 → UNDOADMIN 08:48 → 3BH 10:40
PROVIDERS: ADMIT Hospitalist; ATTEND Hospitalist
PROC: 8E0W4CZ Robotic Assisted Procedure of Trunk Region, Percutaneous Endoscopic Approach (ICD-10-PCS; 2024-07-03)
PROC: 0FT44ZZ Resection of Gallbladder, Percutaneous Endoscopic Approach (ICD-10-PCS; principal; 2024-07-03 17:30)
DX: K80.20 Calculus of gallbladder without cholecystitis without obstruction (principal); K85.10 Biliary acute pancreatitis without necrosis or infection; R18.8 Other ascites; Z68.45 Body mass index [BMI] 70 or greater, adult; R74.01 Elevation of levels of liver transaminase levels; E87.6 Hypokalemia; E11.65 Type 2 diabetes mellitus with hyperglycemia; E66.9 Obesity, unspecified; K76.0 Fatty (change of) liver, not elsewhere classified; Z79.899 Other long term (current) drug therapy
CPT/HCPCS: 36415; 71045; 74176; 74181; 76705; 80048; 80053; 80076; 80305; 81001; 81025; 82550; 82948; 83036; 83690; 83735; 84132; 84478; 84484; 84702; 85025; 85651; 87086; 88304; 93005; 96365; 96372; 96375; 96376; 99285; A4606; G0378; J0360; J0500; J0690; J1171; J1650; J1885; J2175; J2250; J2270; J2405; J2470; J2543; J2704; J2710; J3010; J3475; J3480; J3490; J7030; J7120; A4215; A4216; A4649; J0665; S8037